=== PATIENT | male | born 1935 | race Hispanic/Latino ===

== ENCOUNTER 2017-03-31 15:45 | Observation (INO) | payer MEDICARE ==
[2017-03-31 15:45] VITALS: BMI 30.5
--- NOTE | 2017-03-31 16:28 | C.PDOC ---
History Of Present Illness Patient is a 82 y/o male sent to ED from PMD office for evaluation of fever, generalized weakness, nausea, mild headache, and dizziness for the last 3-4 days. States he does not feel well, and states his mouth feels dry. As per PMD' s note, patient has PMHx of diabetes mellitus, BPH, hypercholesterolemia, atrial flutter, chronic kidney disease, and is sent to the ED to rule out sepsis. Patient was found to have temperature of 100.7 in the office. Patient also reports chronic swelling to bilateral legs. PMD: Atif Price Time Seen by Provider: 03/31/17 15:54 Chief Complaint (Nursing): Weakness/Neurological Deficit History Per: Patient History/Exam Limitations: no limitations Onset/Duration Of Symptoms: Days (3-4), Gradual Current Symptoms Are (Timing): Still Present Reports Recently: Treated By A Physician Recent travel outside of the [place]: No Additional History Per: Patient Past Medical History Reviewed: Historical Data, Nursing Documentation, Vital Signs Vital Signs: Last Vital Signs Temp 98.4 F 03/31/17 15:48 Pulse 80 03/31/17 17:31 Resp 22 03/31/17 17:31 BP 163/79 H 03/31/17 17:31 Pulse Ox 97 03/31/17 17:54 - Medical History PMH: Benign Prostatic Hyperplasia, Cardia Arrhythmia (a flutter), Fractures ( right hip 1970), HTN, Hypercholesterolemia, Chronic Kidney Disease - [facility] Procedures ATRIAL CARDIOVERSION (12/26/13) DX ULTRASOUND-HEART (12/26/13) Family History: States: Unknown Family Hx - Social History Hx Alcohol Use: No Hx Substance Use: No - Immunization History Hx Tetanus Toxoid Vaccination: No Hx Influenza Vaccination: No Hx Pneumococcal Vaccination: No Review Of Systems Except As Marked, All Systems Reviewed And Found Negative. Constitutional: Positive for: Weakness. Negative for: Fever, Chills ENT: Positive for: Other (dry mouth) Cardiovascular: Negative for: Chest Pain, Palpitations Respiratory: Negative for: Cough, Shortness of Breath Gastrointestinal: Positive for: Nausea. Negative for: Vomiting, Abdominal Pain , Diarrhea Genitourinary: Negative for: Dysuria, Frequency, Hematuria Musculoskeletal: Negative for: Back Pain Neurological: Positive for: Headache (mild), Dizziness. Negative for: Weakness , Numbness Physical Exam - Physical Exam Appears: Non-toxic, No Acute Distress Skin: Normal Color, Warm, Dry Head: Atraumatic, Normacephalic Eye(s): bilateral: Normal Inspection, EOMI Oral Mucosa: Moist Neck: Normal ROM, Supple Chest: Symmetrical Cardiovascular: Rhythm Regular (gallop), No Murmur, Other Respiratory: Normal Breath Sounds, No Rales, No Rhonchi, No Wheezing Gastrointestinal/Abdominal: Bowel Sounds, Soft, No Tenderness, No Distention, No Guarding Extremity: Normal ROM, No Tenderness, Pedal Edema (right: 2+, Left: 1+), No Calf Tenderness, Capillary Refill (<2 sec.), No Deformity Pulses: Left Dorsalis Pedis: Normal, Right Dorsalis Pedis: Normal Neurological/Psych: Oriented x3, Normal Speech, Normal Cranial Nerves, Other ( neuro intact) Gait: Steady ED Course And Treatment - Laboratory Results Result Diagrams: 03/31/17 17:01 03/31/17 17:01 Lab Interpretation: Abnormal ECG: Interpreted By Me, Viewed By Me ECG Rhythm: Sinus Rhythm, R BBB ECG Interpretation: Abnormal Interpretation Of ECG: Sinus rhythm with 1st degree AV block. RBBB. Left anterior fascicular block. Rate From EC (bpm) O2 Sat by Pulse Oximetry: 97 (RA) Pulse Ox Interpretation: Normal Medical Decision Making Medical Decision Making: Impression: 82 y/o male sent to ED by PMD to rule out sepsis Plan: * EKG * CXR * Blood work * UA * Blood/urine culture * IV fluids * Reassess and disposition Progress: Labs reviewed: WBC>15, Glucose> 300, UA shows LE, WBC>900 ,clumps On re-evaluation, patient is resting comfortably, no acute distress. Case discussed with DR Hsieh who agrees patient can benefit from observation admission and treat with IV antibiotics. Hospitalist is covering Dr Yadav, spoke with Dr Haddad and discussed case. He asked to add troponin. He also states case will be for following shift Dr Cuba Disposition - Disposition Disposition: HOSPITALIZED Disposition Time: 18:05 Condition: FAIR - POA Present On Arrival: None - Clinical Impression Clinical Impression: UTI (urinary tract infection), bacterial - PA / FINANCIAL OPERATIONS CONSULTANT / Resident Statement MD/DO has reviewed & agrees with the documentation as recorded. - Scribe Statement The provider has reviewed the documentation as recorded by the Scribe Frank Garrisonel All medical record entries made by the Concepcion were at my direction and personally dictated by me. I have reviewed the chart and agree that the record accurately reflects my personal performance of the history, physical exam, medical decision making, and the department course for this patient. I have also personally directed, reviewed, and agree with the discharge instructions and disposition. Decision To Admit - Pt Status Changed To: Hospital Disposition Of: Observation - . Bed Request Type: Regular Admitting Physician: Brad Cuba Patient Diagnosis: UTI (urinary tract infection), bacterial
[2017-03-31] MEDS ORDERED: Sodium Chloride 0.9% 1,000 ML IV ONE (16:31)
[2017-03-31 17:18] LABS: BASO # 0.1 K/uL (0.0-0.2); BASO % 0.5 % (0.0-2.0); EOS % 0.3 % (0.0-4.0); HEMATOCRIT 43.9 % (35.0-51.0); LYMPH # 1.4 K/uL (1.0-4.3); LYMPH % 9.5 % (20.0-40.0); MEAN CELL VOLUME 92.7 fL (80.0-94.0); MEAN CORPUSCULAR HEMOGLOBIN 31.3 pg (27.0-31.0); MEAN CORPUSCULAR HGB CONC 33.7 g/dL (33.0-37.0); MONO # 1.3 K/uL (0.0-0.8); MONO % 8.4 % (0.0-10.0); NRBC % 0.1 % (0.0-2.0); PLATELET COUNT 114 K/uL (130-400); RED CELL DISTRIBUTION WIDTH 12.4 % (11.5-14.5)
[2017-03-31 17:19] LABS: CHLORIDE 96 mmol/L (98-107); SODIUM 132 mmol/L (132-148); WHITE BLOOD COUNT 15.1 K/uL (4.8-10.8)
[2017-03-31 17:20] LABS: POTASSIUM 3.8 mmol/L (3.6-5.2)
[2017-03-31 17:22] LABS: ALKALINE PHOSPHATASE 72 U/L (38-126); AST/SGOT 18 U/L (17-59); BILIRUBIN,TOTAL 1.5 mg/dL (0.2-1.3); BLOOD UREA NITROGEN 17 mg/dL (9-20); CARBON DIOXIDE 24 mmol/L (22-30); GFR AFRICAN-AMERICAN > 60; GLUCOSE,RANDOM 323 mg/dL (75-110); TOTAL PROTEIN 7.4 g/dL (6.3-8.3)
[2017-03-31 17:23] LABS: ALT/SGPT 29 U/L (21-72); CALCIUM 9.6 mg/dl (8.6-10.4); MAGNESIUM 1.4 mg/dL (1.6-2.3)
[2017-03-31 17:25] LABS: RBC URINE 92 /hpf (0-3); URINE BACTERIA MOD (<OCC); URINE BILIRUBIN NEGATIVE (NEGATIVE); URINE BLOOD 3+ (NEGATIVE); URINE COLOR Yellow (YELLOW); URINE GLUCOSE (UA) 3+ mg/dL (Normal); URINE KETONE TRACE mg/dL (NEGATIVE); URINE LEUKOCYTE ESTERASE 3+ Leu/uL (Negative); URINE PROTEIN 2+ mg/dL (NEGATIVE); URINE UROBILINOGEN NORMAL mg/dL (0.2-1.0); WBC CLUMPS MANY /hpf; WBC URINE 957 /hpf (0-5)
[2017-03-31 17:30] LABS: INR 1.2
[2017-03-31] MEDS ORDERED: cefTRIAXone IV 1 gm in Dextros 50 ML IVPB STA (17:32)
[2017-03-31] MEDS ORDERED: cefTRIAXone IV 1 gm in Dextros 50 ML IVPB ONE (17:49)
[2017-03-31 18:10] LABS: NEUTROPHIL 83 % (50-75); TOTAL CELLS COUNTED 100
--- NOTE | 2017-03-31 18:54 | RAD ---
HISTORY: malaise COMPARISON: No prior. TECHNIQUE: Chest PA and lateral FINDINGS: LUNGS: No active pulmonary disease. PLEURA: No significant pleural effusion identified. No pneumothorax apparent. CARDIOVASCULAR: Normal. OSSEOUS STRUCTURES: No significant abnormalities. VISUALIZED UPPER ABDOMEN: Normal. OTHER FINDINGS: None. IMPRESSION: No active disease.
--- NOTE | 2017-03-31 20:22 | CP.PCM.HP ---
<Josi Mendoza DO - Last Filed: 03/31/17 20:24> History of Present Illness - History of Present Illness History of Present Illness: CC: "I felt weak" Patient is an 82 year old male with PMHx DM, BPH, HLD, CKD who presents with complaint of generalized weakness for 3-4 days. Patient states he has just not felt himself and went to see his PMD Dr. Price today. Patient had a fever of 100.[address] Price's office and was sent to the ED for further evaluation. Patient states he has also been drinking less water for a week to 10 days. Patient states the decreased water intake was because every time he drank he had to urinate more frequently. Patient denies fevers, cills, chest pain, palpitations, shortness of breath, cough, dysuria, malodorous urine, hematuria, back pain, appetite changes. Patient does state he had nausea earlier in the day but it has since resolved. Patient denies falls or history of trauma. PMD: Albert PMHx: DM, BPH, HLD, CKD, atrial flutter s/p cardioversion- convert to sinus, chronic RLE edema, hairline hip fracture (no surgical intervention) Meds: flomax 0.4mg, metoprolol tartrate 50mg daily, metformin 500mg BID, lantus 20u daily, gabapentin 100mg TID, norvasc 5mg, simvastatin 20mg hs, ramipril 10mg daily PSHx: denies FamHx: denies Social Hx: former tobacco user- 5-10 cigarettes daily for 5-10y 50+ years ago, denies alcohol, uses marijuana nightly to help with sleep, lives alone, independent in all ADLs, no cane/ walker Present on Admission - Present on Admission Any Indicators Present on Admission: No Review of Systems - Constitutional Constitutional: Lethargy. absent: Chills, Fever, Weight Loss - EENT Eyes: absent: Blurred Vision Nose/Mouth/Throat: absent: Nasal Congestion - Cardiovascular Cardiovascular: absent: Chest Pain, Dyspnea, Irregular Heart Rhythm - Respiratory Respiratory: absent: Cough, Dyspnea - Gastrointestinal Gastrointestinal: Nausea. absent: Diarrhea, Loose Stools, Vomiting - Genitourinary Genitourinary: Urinary Frequency. absent: Difficulty Urinating, Dysuria - Musculoskeletal Musculoskeletal: absent: Back Pain - Integumentary Integumentary: absent: Rash - Neurological Neurological: Weakness. absent: Confusion, Dizziness, Focal Weakness Past Patient History - Infectious Disease Hx of Infectious Diseases: None - Past Medical History & Family History Past Medical History?: Yes - Past Social History Smoking Status: Never Smoked - CARDIAC Hx Cardia Arrhythmia: Yes (a flutter) Hx Hypercholesterolemia: Yes Hx Hypertension: Yes - HEENT Other/Comment: wears glasses - RENAL Hx Chronic Kidney Disease: Yes - ENDOCRINE/METABOLIC Hx Diabetes Mellitus Type 2: Yes - MUSCULOSKELETAL/RHEUMATOLOGICAL Hx Fractures: Yes (right hip 1970) - PSYCHIATRIC Hx Substance Use: No - SURGICAL HISTORY Hx Surgeries: Yes (cannot recall all surgeries) Other/Comment: cardiac ablation - ANESTHESIA Hx Anesthesia: Yes (cannot recall what procdure he had that involved anesthesia) Hx Anesthesia Reactions: No Hx Malignant Hyperthermia: No Meds Allergies/Adverse Reactions: Allergies Allergy/AdvReac Type Severity Reaction Status Date / Time No Known Allergies Allergy Verified 12/23/13 14:33 Physical Exam - Constitutional Appears: Non-toxic, No Acute Distress - Head Exam Head Exam: NORMOCEPHALIC Additional comments: abrasion to left side of face - Eye Exam Eye Exam: EOMI - ENT Exam ENT Exam: Mucous Membranes Dry - Respiratory Exam Respiratory Exam: Clear to Auscultation Bilateral, NORMAL BREATHING PATTERN. absent: Rales, Rhonchi, Wheezes - Cardiovascular Exam Cardiovascular Exam: +S1, +S2 - GI/Abdominal Exam GI & Abdominal Exam: Normal Bowel Sounds, Soft. absent: Distended, Tenderness - Extremities Exam Additional comments: 1+ pitting edema to right lower extremity abrasion to left shoulder - Back Exam Back exam: absent: CVA tenderness (L), CVA tenderness (R) - Neurological Exam Neurological exam: Alert, Oriented x3 - Psychiatric Exam Psychiatric exam: Normal Affect Results - Vital Signs Recent Vital Signs: Last Vital Signs Temp 98.4 F 03/31/17 15:48 Pulse 80 03/31/17 18:24 Resp 18 03/31/17 18:24 BP 166/78 H 03/31/17 18:24 Pulse Ox 97 03/31/17 18:25 - Labs Result Diagrams: 03/31/17 17:01 03/31/17 17:01 Labs: Laboratory Results - last 24 hr 03/31/17 18:15 Troponin I 0.0190 Assessment & Plan - Assessment and Plan (Free Text) Assessment: UTI UA with 957 WBC, 3+ leuk esterase, moderate bacteria f/u urine culture, f/u blood culture starting ceftriaxone q12h WBC 15.1, lactic acid 2.0 Diabetes continue home medications metformin 500mg BID, lantus 20u sc daily accuchecks achs with ISS will check Hgb A1c glucose on CMP 323, 3+ glucose in urine continue gabapentin 100mg TID for neuropathy CKD patient with creatinine 1.3, was 1.2 in 2013 (last result in EMR) will continue IVF NS @ 80cc/h pt with history poor water intake last week HTN continue home medications: metoprolol tartrate 50mg daily, norvasc 5mg daily, ramipril 10mg (patient to take own medication) HLD continue crestor 5mg (equivalent for home medication simvastatin 20mg HS) Prophylactic measure pepcid heparin sc no SCDs due to leg edema Plan of care D/W Dr. Cuba <Brad Cuba - Last Filed: 04/01/17 06:36> Results - Vital Signs Recent Vital Signs: Last Vital Signs Temp 98.5 F 04/01/17 00:30 Pulse 67 04/01/17 00:30 Resp 20 04/01/17 00:30 BP 153/77 H 04/01/17 00:30 Pulse Ox 95 04/01/17 00:30 - Labs Result Diagrams: 03/31/17 17:01 03/31/17 17:01 Labs: Laboratory Results - last 24 hr 03/31/17 03/31/17 18:15 21:23 POC Glucose (mg/dL) 264 H Troponin I 0.0190 Assessment & Plan - Date & Time Date: 04/01/17 (I have seen and examined the patient. I agree with the findings and plan of care as documented by Dr. Mendoza. Patient with UTI and weakness. Fall precautions. PT/OT. May be secondary to UTI. Rocephin for now. Check urine and blood cultures. Also with renal insufficiency. May be secondary to dehydration. Gentle hydration. Recheck renal function in AM. Also with history of diabetes. Check hemoglobin A1C. Continue home meds with NISS. Adjust home meds as necessary. Monitor for acute changes.) Time: 06:34 Attending/Attestation - Attestation I have personally seen and examined this patient.: Yes I have fully participated in the care of the patient.: Yes I have reviewed all pertinent clinical information: Yes
[2017-03-31] MEDS ORDERED: Magnesium Sulfate 1 gm in D5W 1 GM/100 ML BAG IVPB ONE (20:36)
[2017-03-31] MEDS: Sodium Chloride 0.9% 1,000 ML IV SCH (21:05)
[2017-03-31] MEDS: (Novolin R) Insulin Human Regular 100 units/ml vial SC SCH (21:24)
[2017-03-31] MEDS ORDERED: RAMIPRIL 10 MG PO SCH (21:45)
[2017-04-01 01:03] VITALS: RESP 20
--- NOTE | 2017-04-01 07:33 | CP.PCM.PN ---
Addendum entered and electronically signed by Medhat Martinez DO 04/01/17 10: 29: Patient seen and examined at bedside. Doing well with no complaints at this time. No urinary symptoms or back pain. Wants to go home. Denies Chest pain or SOB, F, Chills, N/V. Patient was sitting up watching TV in bed PE * normocephalic atraumatic * CTAB * RRR, no MRG * Soft, ND, NT, bowel sounds present in all 4 quadrants * Radial pulses 2+ b/, DP 2+ b/l, normal skin color, no edema Original Note: <Medhat Martinez - Last Filed: 04/01/17 07:36> Subjective - Date & Time of Evaluation Date of Evaluation: 04/01/17 Time of Evaluation: 07:29 - Subjective Subjective: PGY1 Note for Dr. Marshall HPI: Objective - Vital Signs/Intake and Output Vital Signs (last 24 hours): Temp Pulse Resp BP Pulse Ox 98.5 F 67 20 153/77 H 95 04/01/17 00:30 04/01/17 00:30 04/01/17 00:30 04/01/17 00:30 04/01/17 00:30 Intake and Output: 04/01/17 04/01/17 06:59 18:59 Intake Total 1100 Balance 1100 - Medications Medications: Current Medications Amlodipine Besylate (Norvasc) 5 mg PO DAILY [facility] Famotidine (Pepcid) 20 mg PO DAILY [facility] Last Admin: 03/31/17 21:26 Dose: 20 mg Gabapentin (Neurontin) 100 mg PO TID [facility] Heparin Sodium (Porcine) (Heparin) 5,000 units SC Q12 [facility] Last Admin: 03/31/17 21:19 Dose: 5,000 units Home Med (Home Med) 1 unit PO DAILY [facility] Ceftriaxone Sodium 1 gm/ (Sodium Chloride) 100 mls @ 100 mls/hr IVPB Q12H [facility] Last Admin: 04/01/17 05:21 Dose: 100 mls/hr Sodium Chloride (Sodium Chloride 0.9%) 1,000 mls @ 80 mls/hr IV .[id number] [facility] Last Admin: 03/31/17 21:05 Dose: 80 mls/hr Insulin Glargine (Lantus) 20 unit SC DAILY [facility] Insulin Human Regular (Novolin R) 0 unit SC [facility] PRN Reason: Protocol Last Admin: 03/31/17 21:24 Dose: Not Given Metformin HCl (Glucophage) 500 mg PO BID [facility] Metoprolol Tartrate (Lopressor) 50 mg PO DAILY [facility] Pneumococcal Polyvalent Vaccine (Pneumovax 23 Vaccine) 0.5 ml IM .ONCE ONE Stop: 04/02/17 10:01 Rosuvastatin Calcium (Crestor) 5 mg PO [facility] Last Admin: 03/31/17 21:19 Dose: 5 mg Tamsulosin HCl (Flomax) 0.4 mg PO DAILY [facility] - Labs Labs: PT 13.3 SECONDS (9.7-12.2) H 03/31/17 17:01 INR 1.2 03/31/17 17:01 APTT 29 SECONDS (21-34) 03/31/17 17:01 Assessment and Plan - Assessment and Plan (Free Text) Assessment: UTI * f/u urine culture * f/u blood culture * ceftriaxone q12h Diabetes * metformin 500mg BID * lantus 20u sc daily * accuchecks achs with ISS * Hgb A1c * gabapentin 100mg TID CKD * IVF NS @ 80 HTN * metoprolol tartrate 50mg daily * norvasc 5mg daily * ramipril 10mg (own med) HLD * crestor 5mg Prophylactic measure * pepcid * heparin sc <Sammy Marsahll H - Last Filed: 04/01/17 14:13> Objective - Vital Signs/Intake and Output Vital Signs (last 24 hours): Temp Pulse Resp BP Pulse Ox 97.2 F L 82 20 169/82 H 97 04/01/17 07:52 04/01/17 07:52 04/01/17 07:52 04/01/17 07:52 04/01/17 07:52 Intake and Output: 04/01/17 04/01/17 06:59 18:59 Intake Total 1100 Balance 1100 - Labs Labs: 04/01/17 07:31 04/01/17 07:31 PT 13.3 SECONDS (9.7-12.2) H 03/31/17 17:01 INR 1.2 03/31/17 17:01 APTT 29 SECONDS (21-34) 03/31/17 17:01 Attending/Attestation - Attestation I have personally seen and examined this patient.: Yes I have fully participated in the care of the patient.: Yes I have reviewed all pertinent clinical information, including history, physical exam and plan: Yes Notes (Text): 04/01/17 14:12 Medical attending: Patient was seen and examined by me, agree with the above note by medical assembly. The patient stated that he was feeling very well, he did not have any new concerns, reported eating well, back from was okay, denied chest pain or shortness of breath The patient explained to me that he did not want to stay, I discussed with him some the potential risks particularly since he is getting IV antibiotics for what appeared to be UTI. The patient states he understands but that he feels very well. He doesn't have any concerns at this time he would like to go AMA Thank you very much, Sammy Marshall
[2017-04-01 07:40] LABS: BASO # 0.1 K/uL (0.0-0.2); BASO % 1.2 % (0.0-2.0); EOS # 0.2 K/uL (0.0-0.7); EOS % 1.6 % (0.0-4.0); LYMPH % 16.5 % (20.0-40.0); MEAN CORPUSCULAR HEMOGLOBIN 31.6 pg (27.0-31.0); MEAN PLATELET VOLUME 11.2 fL (7.2-11.7); MONO # 1.1 K/uL (0.0-0.8); MONO % 8.9 % (0.0-10.0); RED CELL DISTRIBUTION WIDTH 12.6 % (11.5-14.5); WHITE BLOOD COUNT 12.4 K/uL (4.8-10.8)
[2017-04-01 07:53] LABS: CHLORIDE 101 mmol/L (98-107); POTASSIUM 3.9 mmol/L (3.6-5.2); SODIUM 135 mmol/L (132-148)
[2017-04-01 07:55] VITALS: BP 169/82; PULSE 82; TEMP 97.2; O2SAT 97
[2017-04-01 07:55] LABS: BILIRUBIN,TOTAL 1.2 mg/dL (0.2-1.3); GFR AFRICAN-AMERICAN > 60
[2017-04-01 07:56] LABS: ALB/GLOB RATIO 0.9 (1.0-2.1); ALKALINE PHOSPHATASE 61 U/L (38-126); ALT/SGPT 25 U/L (21-72); AST/SGOT 16 U/L (17-59); BLOOD UREA NITROGEN 14 mg/dL (9-20); CARBON DIOXIDE 24 mmol/L (22-30); GLUCOSE,RANDOM 246 mg/dL (75-110); TOTAL PROTEIN 6.7 g/dL (6.3-8.3)
[2017-04-01 07:57] LABS: CALCIUM 9.1 mg/dl (8.6-10.4)
[2017-04-01] MEDS: (Novolin R) Insulin Human Regular 100 units/ml vial SC SCH ×2 (08:44→12:52)
[2017-04-01] MEDS: Sodium Chloride 0.9% 1,000 ML IV SCH (09:37)
[2017-04-01] MEDS ORDERED: RAMIPRIL 10 MG PO SCH (10:00)
[2017-04-01] MEDS ORDERED: (Lantus) Insulin Glargine, Recombinant SC SCH (10:00)
--- NOTE | 2017-04-01 11:07 | CP.PCM.DIS ---
Provider - Provider Date of Admission: 03/31/17 18:07 Attending physician: Brad Cuba MD Hospital Course - Lab Results Lab Results: Most Recent Lab Values WBC 12.4 K/uL (4.8-10.8) H 04/01/17 07:31 RBC 4.19 Mil/uL (4.40-5.90) L 04/01/17 07:31 Hgb 13.3 g/dL (12.0-18.0) 04/01/17 07: Hct 39.0 % (35.0-51.0) 04/01/17 07:31 MCV 93.0 fL (80.0-94.0) 04/01/17 07: MCH 31.6 pg (27.0-31.0) H 04/01/17 07:31 MCHC 34.0 g/dL (33.0-37.0) 04/01/17 07:31 RDW 12.6 % (11.5-14.5) 04/01/17 07:31 Plt Count 105 K/uL (130-400) L 04/01/17 07:31 MPV 11.2 fL (7.2-11.7) 04/01/17 07:31 Neut % (Auto) 71.8 % (50.0-75.0) 04/01/17 07: Lymph % (Auto) 16.5 % (20.0-40.0) L 04/01/17 07:31 [place] % (Auto) 8.9 % (0.0-10.0) 04/01/17 07:31 Eos % (Auto) 1.6 % (0.0-4.0) 04/01/17 07:31 Baso % (Auto) 1.2 % (0.0-2.0) 04/01/17 07:31 Neut # 8.9 K/uL (1.8-7.0) H 04/01/17 07:31 Lymph # 2.0 K/uL (1.0-4.3) 04/01/17 07:31 [place] # 1.1 K/uL (0.0-0.8) H 04/01/17 07:31 Eos # 0.2 K/uL (0.0-0.7) 04/01/17 07:31 Baso # 0.1 K/uL (0.0-0.2) 04/01/17 07:31 Neutrophils % (Manual) 83 % (50-75) H 03/31/17 17:01 Band Neutrophils % 1 % (0-2) 03/31/17 17:01 Lymphocytes % (Manual) 9 % (20-40) L 03/31/17 17:01 Monocytes % (Manual) 7 % (0-10) 03/31/17 17:01 Platelet Estimate Slightly decreased (NORMAL) L 03/31/17 17:01 RBC Morphology Normal 03/31/17 17: PT 13.3 SECONDS (9.7-12.2) H 03/31/17 17:01 INR 1.2 03/31/17 17:01 APTT 29 SECONDS (21-34) 03/31/17 17:01 Sodium 135 mmol/L (132-148) 04/01/17 07:31 Potassium 3.9 mmol/L (3.6-5.2) 04/01/17 07:31 Chloride 101 mmol/L (98-107) 04/01/17 07:31 Carbon Dioxide 24 mmol/L (22-30) 04/01/17 07:31 Anion Gap 14 (10-20) 04/01/17 07:31 BUN 14 mg/dL (9-20) 04/01/17 07:31 Creatinine 1.1 MG/DL (0.8-1.5) 04/01/17 07:31 Est GFR ( Amer) > 60 04/01/17 07:31 Est GFR (Non-Af Amer) > 60 04/01/17 07:31 POC Glucose (mg/dL) 258 mg/dL (65-110) H 04/01/17 07:19 Random Glucose 246 mg/dL (75-110) H 04/01/17 07:31 Hemoglobin A1c 10.1 % (4.2-6.5) H 04/01/17 07:31 Lactic Acid 2.0 mmol/L (0.7-2.1) 03/31/17 17:01 Calcium 9.1 mg/dl (8.6-10.4) 04/01/17 07:31 Phosphorus 3.0 mg/dL (2.5-4.5) 03/31/17 17:01 Magnesium 1.4 mg/dL (1.6-2.3) L 03/31/17 17:01 Total Bilirubin 1.2 mg/dL (0.2-1.3) 04/01/17 07:31 AST 16 U/L (17-59) L 04/01/17 07:31 ALT 25 U/L (21-72) 04/01/17 07:31 Alkaline Phosphatase 61 U/L (38-126) 04/01/17 07:31 Troponin I 0.0190 ng/mL (0.00-0.120) 03/31/17 18:15 NT-Pro-B Natriuret Pep 1150 pg/mL (0-900) H 03/31/17 17:01 Total Protein 6.7 g/dL (6.3-8.3) 04/01/17 07:31 Albumin 3.2 g/dL (3.5-5.0) L 04/01/17 07:31 Globulin 3.5 gm/dL (2.2-3.9) 04/01/17 07:31 Albumin/Globulin Ratio 0.9 (1.0-2.1) L 04/01/17 07:31 Urine Color Yellow (YELLOW) 03/31/17 17:01 Urine Clarity Hazy (Clear) 03/31/17 17:01 Urine pH 5.0 (5.0-8.0) 03/31/17 17:01 Ur Specific [place] 1.020 (1.003-1.030) 03/31/17 17:01 Urine Protein 2+ mg/dL (NEGATIVE) H 03/31/17 17:01 Urine Glucose (UA) 3+ mg/dL (Normal) H 03/31/17 17:01 Urine Ketones Trace mg/dL (NEGATIVE) 03/31/17 17:01 Urine Blood 3+ (NEGATIVE) H 03/31/17 17:01 Urine Nitrate Negative (NEGATIVE) 03/31/17 17: Urine Bilirubin Negative (NEGATIVE) 03/31/17 17:01 Urine Urobilinogen Normal mg/dL (0.2-1.0) 03/31/17 17:01 Ur Leukocyte Esterase 3+ [place]/uL (Negative) H 03/31/17 17:01 Urine WBC (Auto) 957 /hpf (0-5) H 03/31/17 17:01 Urine RBC (Auto) 92 /hpf (0-3) H 03/31/17 17:01 Urine WBC Clumps (Auto) Many /hpf (NONE) H 03/31/17 17:01 Urine Bacteria Mod (<OCC) H 03/31/17 17:01 Discharge Exam - Head Exam Head Exam: NORMOCEPHALIC Discharge Plan - Follow Up Plan Condition: FAIR Disposition: AGAINST MEDICAL ADVICE Additional Instructions: Patient is requesting to leave AMA. We will prescribe Ciprofloxacin 500mg BID for 7 days If symptoms return please come back to the ER Please follow up with your primary care doctor, Dr. Price, within one week. Please call to make an appointment Prescription instruction will be provided at discharge. Thank you for letting us take care of you
--- NOTE | 2017-04-01 11:57 | CARD ---
APPROVED REPORT EKG Measurement Heart [id number] <Conclusion> Sinus rhythm with 1st degree AV block Right bundle branch block Left anterior fascicular block Bifascicular block Left ventricular hypertrophy with repolarization abnormality Cannot rule out Septal infarct, age undetermined Abnormal ECG
[2017-04-02] MEDS ORDERED: Pneumococcal 23-Valent Vaccine IM ONE (10:00)
--- NOTE | 2017-04-16 18:44 | CARD ---
APPROVED REPORT EKG Measurement Heart [id number] <Conclusion> Sinus rhythm with sinus arrhythmia with 1st degree AV block Right bundle branch block Left anterior fascicular block Bifascicular block Minimal voltage criteria for LVH, may be normal variant Abnormal ECG
== END 2017-04-01 12:52 | disposition home or self-care (01) ==
LOC: C.ER 15:45 → C.9E 18:07 → C.3T 18:38
PROVIDERS: ADMIT Family Medicine; ATTEND Family Medicine
DX: N39.0 Urinary tract infection, site not specified (principal); I12.9 Hypertensive chronic kidney disease with stage 1 through stage 4 chronic kidney disease, or unspecified chronic kidney disease; N18.9 Chronic kidney disease, unspecified; E78.5 Hyperlipidemia, unspecified; E11.22 Type 2 diabetes mellitus with diabetic chronic kidney disease; N40.0 Benign prostatic hyperplasia without lower urinary tract symptoms; Z87.891 Personal history of nicotine dependence
CPT/HCPCS: 36415; 71020; 80053; 81001; 82948; 83036; 83605; 83735; 83880; 84100; 84484; 85025; 85610; 85730; 87040; 87086; 93005; 96360; 99285; G0378; J0696; J1644; J3475; J7040

== ENCOUNTER 2018-02-09 07:11 | Observation (INO) | payer MEDICARE ==
[2018-02-09 07:11] VITALS: BMI 30.5
[2018-02-09 08:33] LABS: BASO # 0.1 K/uL (0.0-0.2); BASO % 0.7 % (0.0-2.0); EOS # 0.3 K/uL (0.0-0.7); EOS % 3.3 % (0.0-4.0); LYMPH % 23.6 % (20.0-40.0); MEAN CELL VOLUME 94.7 fL (80.0-94.0); MEAN CORPUSCULAR HEMOGLOBIN 32.4 pg (27.0-31.0); MEAN CORPUSCULAR HGB CONC 34.2 g/dL (33.0-37.0); MEAN PLATELET VOLUME 11.3 fL (7.2-11.7); MONO # 0.6 K/uL (0.0-0.8); MONO % 6.9 % (0.0-10.0); NEUT # 5.6 K/uL (1.8-7.0); NEUT % 65.5 % (50.0-75.0); RBC 4.33 Mil/uL (4.40-5.90); RED CELL DISTRIBUTION WIDTH 12.4 % (11.5-14.5); WHITE BLOOD COUNT 8.5 K/uL (4.8-10.8)
[2018-02-09 08:34] LABS: INR 1.1
[2018-02-09 08:48] LABS: ALB/GLOB RATIO 1.1 (1.0-2.1); ALBUMIN 3.7 g/dL (3.5-5.0); ALT/SGPT 30 U/L (21-72); AST/SGOT 26 U/L (17-59); BLOOD UREA NITROGEN 23 mg/dL (9-20); CALCIUM 9.3 mg/dl (8.6-10.4); GFR AFRICAN-AMERICAN 59; GFR NON-AFRICAN AMERICAN 49
[2018-02-09 08:58] LABS: B-TYPE NATRIURETIC PEPTIDE 1140 pg/mL (0-900); CK-MB 1.05 ng/mL (0.0-3.38)
--- NOTE | 2018-02-09 09:35 | RAD ---
Chest x-ray single frontal view History: Shortness of breath. Comparison: 03/31/2017 Findings: Mild to moderate venous congestion. Patchy bibasilar airspace opacities with question small bilateral pleural effusions. Nodular density at the right lung base. Enlarged ectatic aorta. Cardiomegaly. Right peritracheal airspace prominence may represent prominent vascularity. Impression: Mild to moderate venous congestion. Patchy bibasilar airspace opacities with question small bilateral pleural effusions. Nodular density at the right lung base. Enlarged ectatic aorta. Cardiomegaly. Right peritracheal airspace prominence may represent prominent vascularity.
--- NOTE | 2018-02-09 10:21 | C.PDOC ---
History Of Present Illness 82 year old male presents to the ER with complaint of generalized weakness and mild SOB with exertion for the past several days. Patient has a Hx of atrial flutter and has been cardioverted x2 as per PMD. He denies chest pain, palpitations, abdominal pain, nausea, vomiting, cough, fever, syncope. Time Seen by Provider: 02/09/18 07:30 Chief Complaint (Nursing): Chest Pain History Per: Patient History/Exam Limitations: no limitations Onset/Duration Of Symptoms: Days Current Symptoms Are (Timing): Still Present Severity: Mild Associated Symptoms: Dyspnea (with exertion), Other (Generalized weakness) Modifying Factors: None Exacerbating Factors: Exertion Alleviating Factors: None Recent travel outside of the [place]: No Past Medical History Reviewed: Historical Data, Nursing Documentation, Vital Signs Vital Signs: Last Vital Signs Temp 98.2 F 02/10/18 07:00 Pulse 61 02/10/18 07:00 Resp 20 02/10/18 07:00 BP 165/82 H 02/10/18 07:00 Pulse Ox 97 02/10/18 07:00 - Medical History PMH: Benign Prostatic Hyperplasia, Cardia Arrhythmia (a flutter), Fractures ( right hip 1970), HTN, Hypercholesterolemia, Chronic Kidney Disease - [facility] Procedures ATRIAL CARDIOVERSION (12/26/13) DX ULTRASOUND-HEART (12/26/13) Family History: States: No Known Family Hx - Social History Hx Alcohol Use: No Hx Substance Use: No - Immunization History Hx Tetanus Toxoid Vaccination: No Hx Influenza Vaccination: No Hx Pneumococcal Vaccination: No Review Of Systems Constitutional: Positive for: Weakness. Negative for: Fever, Chills Cardiovascular: Negative for: Chest Pain, Palpitations Respiratory: Positive for: SOB with Excertion (Mild). Negative for: Cough Gastrointestinal: Negative for: Nausea, Vomiting, Abdominal Pain Skin: Negative for: Rash Physical Exam - Physical Exam Appears: Well, Non-toxic, No Acute Distress, Other (speaking in full sentences) Skin: Normal Color, Warm, Dry, No Rash Eye(s): bilateral: Normal Inspection Oral Mucosa: Moist Neck: Supple Cardiovascular: Rhythm Regular, Murmur (3/6 holosystolic) Respiratory: Normal Breath Sounds, No Rales, No Rhonchi, No Wheezing Gastrointestinal/Abdominal: Normal Exam, Bowel Sounds, Soft, No Tenderness Extremity: Pedal Edema (trace pitting edema B/L LEs R>L) Neurological/Psych: Oriented x3, Normal Speech, Normal Cognition ED Course And Treatment - Laboratory Results Result Diagrams: 02/10/18 06:51 02/10/18 06:51 ECG: Interpreted By Me, Viewed By Me (atrial flutter 62 bpm, PVCs, left axis deivation, no acute ST/T wave changes) ECG Interpretation: Abnormal O2 Sat by Pulse Oximetry: 99 (Room air) Pulse Ox Interpretation: Normal - Radiology CXR: Interpreted by Me, Viewed By Me (mild pulm vascular congestion. no infiltrate) Progress Note: Blood work, EKG, CXR ordered and reviewed. Patient given PO ASA , IV Lasix. Patient not on current blood thinner, states was taken off of it due to bleeding compliications. - Physician Consult Information Physician Contacted: Atif Price Outcome Of Conversation: Dicussed patient with his PMD, would like him admitted to Dr. Yadav's service for atrial flutter, CHF, gen weakness. Inpatient Care Manager Rn is Dr. Clement, who is currently away on vacation. Dr. Yadav aware and requests Dr. Brambila for cardiology. Disposition - Disposition Disposition: HOSPITALIZED Disposition Time: 11:22 Condition: STABLE - Clinical Impression Clinical Impression: Atrial flutter, General weakness, Congestive heart failure - Scribe Statement The provider has reviewed the documentation as recorded by the Scribe Kai Hidalgo Decision To Admit - Pt Status Changed To: Hospital Disposition Of: Observation - . Bed Request Type: Telemetry Admitting Physician: Rodney Yadav Patient Diagnosis: Atrial flutter, Congestive heart failure, General weakness
[2018-02-09 16:19] VITALS: RESP 20
[2018-02-09] MEDS ORDERED: Benzocaine/Menthol (Cepacol) Lozenge MT PRN (19:15)
--- NOTE | 2018-02-09 20:23 | CP.PCM.CON ---
History of Present Illness - History of Present Illness History of Present Illness: Reason For Consultation: Patient is an 82 year old male with PMHx DM, BPH, HLD, CKD who presents with complaint of generalized weakness. admitted for A Flutter (Recurrent) PMD: Price/Vicenta PMHx: DM, BPH, HLD, CKD, atrial flutter s/p cardioversion- convert to sinus, chronic RLE edema, hairline hip fracture (no surgical intervention) Meds: flomax 0.4mg, metoprolol tartrate 50mg daily, metformin 500mg BID, lantus 20u daily, gabapentin 100mg TID, norvasc 5mg, simvastatin 20mg hs, ramipril 10mg daily PSHx: denies FamHx: denies Social Hx: former tobacco user- 5-10 cigarettes daily for 5-10y 50+ years ago, denies alcohol, uses marijuana nightly to help with sleep, lives alone, independent in all ADLs, no cane/ walker Present on Admission - Present on Admission Any Indicators Present on Admission: No Review of Systems - Constitutional Constitutional: Lethargy. absent: Chills, Fever, Weight Loss - EENT Eyes: absent: Blurred Vision Nose/Mouth/Throat: absent: Nasal Congestion - Cardiovascular Cardiovascular: absent: Chest Pain, Dyspnea, Irregular Heart Rhythm - Respiratory Respiratory: absent: Cough, Dyspnea - Gastrointestinal Gastrointestinal: Nausea. absent: Diarrhea, Loose Stools, Vomiting - Genitourinary Genitourinary: Urinary Frequency. absent: Difficulty Urinating, Dysuria - Musculoskeletal Musculoskeletal: absent: Back Pain - Integumentary Integumentary: absent: Rash - Neurological Neurological: Weakness. absent: Confusion, Dizziness, Focal Weakness Physical Exam - Constitutional Appears: Non-toxic, No Acute Distress - Head Exam Head Exam: NORMOCEPHALIC Additional comments: abrasion to left side of face - Eye Exam Eye Exam: EOMI - ENT Exam ENT Exam: Mucous Membranes Dry - Respiratory Exam Respiratory Exam: Clear to Auscultation Bilateral, NORMAL BREATHING PATTERN. absent: Rales, Rhonchi, Wheezes - Cardiovascular Exam Cardiovascular Exam: +S1, +S2 - GI/Abdominal Exam GI & Abdominal Exam: Normal Bowel Sounds, Soft. absent: Distended, Tenderness - Extremities Exam Additional comments: 1+ pitting edema to right lower extremity abrasion to left shoulder - Back Exam Back exam: absent: CVA tenderness (L), CVA tenderness (R) - Neurological Exam Neurological exam: Alert, Oriented x3 - Psychiatric Exam Psychiatric exam: Normal Affect Past Patient History - Infectious Disease Hx of Infectious Diseases: None - Past Medical History & Family History Past Medical History?: Yes - Past Social History Smoking Status: Former Smoker - CARDIAC Hx Cardia Arrhythmia: Yes (a flutter) Hx Hypercholesterolemia: Yes Hx Hypertension: Yes - PULMONARY Hx Respiratory Disorders: No - NEUROLOGICAL Hx Neurological Disorder: No - HEENT Other/Comment: wears glasses - RENAL Hx Chronic Kidney Disease: Yes - ENDOCRINE/METABOLIC Hx Diabetes Mellitus Type 2: Yes - INTEGUMENTARY Hx Dermatological Problems: No - MUSCULOSKELETAL/RHEUMATOLOGICAL Hx Fractures: Yes (right hip 1970) - GASTROINTESTINAL Hx Gastrointestinal Disorders: No - GENITOURINARY/GYNECOLOGICAL Hx Prostate Problems: Yes (BPH) - PSYCHIATRIC Hx Substance Use: No - SURGICAL HISTORY Hx Surgeries: Yes (cannot recall all surgeries) Other/Comment: cardiac ablation - ANESTHESIA Hx Anesthesia: Yes (cannot recall what procdure he had that involved anesthesia) Hx Anesthesia Reactions: No Hx Malignant Hyperthermia: No Has any member of the family had a problem w/ anesthesia?: No Meds Allergies/Adverse Reactions: Allergies Allergy/AdvReac Type Severity Reaction Status Date / Time No Known Allergies Allergy Verified 02/09/18 07:26 - Medications Medications: Current Medications Aspirin (Ecotrin) 81 mg PO DAILY [facility] Benzocaine/Menthol (Cepacol Sore Throat) 1 gibson MT Q12 PRN PRN Reason: Sore Throat Enoxaparin Sodium (Lovenox) 80 mg SC Q12 [facility] Losartan Potassium (Cozaar) 25 mg PO DAILY [facility] Metoprolol Succinate (Toprol Xl) 50 mg PO DAILY [facility] Rosuvastatin Calcium (Crestor) 5 mg PO DAILY [facility] Results - Vital Signs Recent Vital Signs: Last Vital Signs Temp 98.6 F 02/09/18 15:13 Pulse 64 02/09/18 15:13 Resp 20 02/09/18 15:13 BP 145/75 02/09/18 15:13 Pulse Ox 96 02/09/18 15:13 - Labs Result Diagrams: 02/09/18 08:20 02/09/18 08:20 Labs: Laboratory Results - last 24 hr 02/09/18 02/09/18 02/09/18 08:20 08:20 08:20 WBC 8.5 RBC 4.33 L Hgb 14.0 Hct 41.0 MCV 94.7 H MCH 32.4 H MCHC 34.2 RDW 12.4 Plt Count 131 MPV 11.3 Neut % (Auto) 65.5 Lymph % (Auto) 23.6 [place] % (Auto) 6.9 Eos % (Auto) 3.3 Baso % (Auto) 0.7 Neut # (Auto) 5.6 Lymph # (Auto) 2.0 [place] # (Auto) 0.6 Eos # (Auto) 0.3 Baso # (Auto) 0.1 PT 12.0 INR 1.1 APTT 30 Sodium 139 Potassium 4.5 Chloride 105 Carbon Dioxide 22 Anion Gap 16 BUN 23 H Creatinine 1.4 Est GFR ( Amer) 59 Est GFR (Non-Af Amer) 49 POC Glucose (mg/dL) Random Glucose 189 H Calcium 9.3 Total Bilirubin 0.9 AST 26 ALT 30 Alkaline Phosphatase 67 Total Creatine Kinase 55 CK-MB (Mass) 1.05 Troponin I < 0.0120 NT-Pro-B Natriuret Pep 1140 H Total Protein 6.9 Albumin 3.7 Globulin 3.2 Albumin/Globulin Ratio 1.1 02/09/18 16:47 WBC RBC Hgb Hct MCV MCH MCHC RDW Plt Count MPV Neut % (Auto) Lymph % (Auto) [place] % (Auto) Eos % (Auto) Baso % (Auto) Neut # (Auto) Lymph # (Auto) [place] # (Auto) Eos # (Auto) Baso # (Auto) PT INR APTT Sodium Potassium Chloride Carbon Dioxide Anion Gap BUN Creatinine Est GFR ( Amer) Est GFR (Non-Af Amer) POC Glucose (mg/dL) 207 H Random Glucose Calcium Total Bilirubin AST ALT Alkaline Phosphatase Total Creatine Kinase CK-MB (Mass) Troponin I NT-Pro-B Natriuret Pep Total Protein Albumin Globulin Albumin/Globulin Ratio Assessment & Plan - Assessment and Plan (Free Text) Assessment: A Flutter Recurrent A Flutter rate controlled CARRIE/ cardioversion Vs. EPS ablation Needs anticoagulation Diabetes continue home medications metformin 500mg BID, lantus 20u sc daily accuchecks achs with ISS will check Hgb A1c glucose on CMP 323, 3+ glucose in urine continue gabapentin 100mg TID for neuropathy CKD HTN continue home medications: metoprolol tartrate 50mg daily, norvasc 5mg daily, ramipril 10mg (patient to take own medication) HLD continue crestor 5mg (equivalent for home medication simvastatin 20mg HS) Prophylactic measure pepcid heparin sc no SCDs due to leg edema
[2018-02-09 20:35] LABS: CK-MB 0.81 ng/mL (0.0-3.38)
--- NOTE | 2018-02-09 21:15 | CP.PCM.HP ---
History of Present Illness - History of Present Illness History of Present Illness: Chief complaint feeling weak HPI: 82-year-old male with history of diabetes, BPH, hypercholesterolemia, renal insufficiency, history of irregular heartbeat in the past, had cardioversions in the past came to the emergency room after he was seen by PMD today. Recently he returned from [place], where he was there he was started having some sickness. He was not feeling well, shortness of breath noted, chest tightness noted, headache, dizziness, and feeling tired and weak. While he seen in the office patient had rapid heartbeat, and weakness. He was sent to the emergency room because of that. In the emergency room patient was evaluated, he was feeling slightly better, but continued to have a rapid heartbeat, got better after medications. Patient needed further management. Now he is having no chest pain. He has no sweating. Slightly feeling better. Past medical history: Diabetes, takes insulin, BPH, high cholesterol, hyperlipidemia, hypertension, atrial fibrillation, status post cardioversion in the past also leg edema in the past Current medications reviewed Surgical history none Family history mother at the age of 90, father also in their old age. Siblings no medical history noted Patient has 3 daughters, and many great grandsons grand daughters Social history: He smoked almost a 5-10 cigarettes per day for 5 years more than 50 years ago. No alcohol. Occasionally uses marijuana. Patient lives alone Review of system: Patient is having dizziness, headache, palpitation, weakness, sweating, shortness of breath on exertion. Unable to walk less than 1 - 2 blocks. No diarrhea no nausea no fever noted No cough. Minimal sore throat noted but minimal cough with mucus noted now On examination: Vital signs stable. Chest bilateral good air entry. No rales wheezing noted, irregular heart sound, nontender abdomen, no pedal edema, TUBING OILER alert awake oriented 3 no functional neurological deficit Labs: EKG showing evidence of atrial flutter with controlled ventricular rate. Elevated proBNP noted, cardiac enzymes negative. CBC is normal. Urinalysis currently pending. X-ray chest showing evidence of no acute pathology Assessment and recommendation: 82-year-old male admitted to the hospital with multiple medical history including diabetes, BPH, hypercholesterolemia, hypertension, history of atrial flutter, status post cardioversions in the past admitted now with a possible acute rapid ventricular rate with the atrial flutter and fibrillation. Weakness associated with rapid ventricular rate. Underlying possible CHF secondary to atrial flutter. Patient also has a possible upper respiratory infection, but stable. Cardiology evaluation. Continue to monitor. Telemetry monitoring. DVT GI prophylaxis. Anticoagulation. We will get a thyroid profile. Patient may need cardioversion. Patient also may need ablation, discussed with the patient, currently he is reluctant. Echocardiogram ordered will follow the patient Present on Admission - Present on Admission Any Indicators Present on Admission: No History of DVT/PE: No History of Uncontrolled Diabetes: No Urinary Catheter: No Decubitus Ulcer Present: No Past Patient History - Infectious Disease Hx of Infectious Diseases: None - Past Medical History & Family History Past Medical History?: Yes - Past Social History Smoking Status: Former Smoker - CARDIAC Hx Cardia Arrhythmia: Yes (a flutter) Hx Hypercholesterolemia: Yes Hx Hypertension: Yes - PULMONARY Hx Respiratory Disorders: No - NEUROLOGICAL Hx Neurological Disorder: No - HEENT Other/Comment: wears glasses - RENAL Hx Chronic Kidney Disease: Yes - ENDOCRINE/METABOLIC Hx Diabetes Mellitus Type 2: Yes - INTEGUMENTARY Hx Dermatological Problems: No - MUSCULOSKELETAL/RHEUMATOLOGICAL Hx Fractures: Yes (right hip 1970) - GASTROINTESTINAL Hx Gastrointestinal Disorders: No - GENITOURINARY/GYNECOLOGICAL Hx Prostate Problems: Yes (BPH) - PSYCHIATRIC Hx Substance Use: No - SURGICAL HISTORY Hx Surgeries: Yes (cannot recall all surgeries) Other/Comment: cardiac ablation - ANESTHESIA Hx Anesthesia: Yes (cannot recall what procdure he had that involved anesthesia) Hx Anesthesia Reactions: No Hx Malignant Hyperthermia: No Has any member of the family had a problem w/ anesthesia?: No Meds Allergies/Adverse Reactions: Allergies Allergy/AdvReac Type Severity Reaction Status Date / Time No Known Allergies Allergy Verified 02/09/18 07:26 Results - Vital Signs Recent Vital Signs: Last Vital Signs Temp 98.6 F 02/09/18 15:13 Pulse 64 02/09/18 15:13 Resp 20 02/09/18 15:13 BP 145/75 02/09/18 15:13 Pulse Ox 96 02/09/18 15:13 - Labs Result Diagrams: 02/09/18 08:20 02/09/18 08:20 Labs: Laboratory Results - last 24 hr 02/09/18 02/09/18 02/09/18 08:20 08:20 08:20 WBC 8.5 RBC 4.33 L Hgb 14.0 Hct 41.0 MCV 94.7 H MCH 32.4 H MCHC 34.2 RDW 12.4 Plt Count 131 MPV 11.3 Neut % (Auto) 65.5 Lymph % (Auto) 23.6 [place] % (Auto) 6.9 Eos % (Auto) 3.3 Baso % (Auto) 0.7 Neut # (Auto) 5.6 Lymph # (Auto) 2.0 [place] # (Auto) 0.6 Eos # (Auto) 0.3 Baso # (Auto) 0.1 PT 12.0 INR 1.1 APTT 30 Sodium 139 Potassium 4.5 Chloride 105 Carbon Dioxide 22 Anion Gap 16 BUN 23 H Creatinine 1.4 Est GFR ( Amer) 59 Est GFR (Non-Af Amer) 49 POC Glucose (mg/dL) Random Glucose 189 H Calcium 9.3 Total Bilirubin 0.9 AST 26 ALT 30 Alkaline Phosphatase 67 Total Creatine Kinase 55 CK-MB (Mass) 1.05 Troponin I < 0.0120 NT-Pro-B Natriuret Pep 1140 H Total Protein 6.9 Albumin 3.7 Globulin 3.2 Albumin/Globulin Ratio 1.1 02/09/18 02/09/18 16:47 20:04 WBC RBC Hgb Hct MCV MCH MCHC RDW Plt Count MPV Neut % (Auto) Lymph % (Auto) [place] % (Auto) Eos % (Auto) Baso % (Auto) Neut # (Auto) Lymph # (Auto) [place] # (Auto) Eos # (Auto) Baso # (Auto) PT INR APTT Sodium Potassium Chloride Carbon Dioxide Anion Gap BUN Creatinine Est GFR ( Amer) Est GFR (Non-Af Amer) POC Glucose (mg/dL) 207 H Random Glucose Calcium Total Bilirubin AST ALT Alkaline Phosphatase Total Creatine Kinase 49 L CK-MB (Mass) 0.81 Troponin I < 0.0120 NT-Pro-B Natriuret Pep Total Protein Albumin Globulin Albumin/Globulin Ratio
[2018-02-09] MEDS: (Novolin R) Insulin Human Regular 100 units/ml vial SC SCH (21:48)
[2018-02-09] MEDS: Enoxaparin 80 mg Syringe SC SCH (21:48)
[2018-02-10 06:59] LABS: BASO % 0.7 % (0.0-2.0); EOS # 0.3 K/uL (0.0-0.7); EOS % 3.7 % (0.0-4.0); HEMOGLOBIN 14.8 g/dL (12.0-18.0); LYMPH # 2.4 K/uL (1.0-4.3); MEAN CELL VOLUME 94.7 fL (80.0-94.0); MEAN CORPUSCULAR HEMOGLOBIN 32.3 pg (27.0-31.0); MEAN CORPUSCULAR HGB CONC 34.1 g/dL (33.0-37.0); MEAN PLATELET VOLUME 11.4 fL (7.2-11.7); MONO # 0.4 K/uL (0.0-0.8); MONO % 6.2 % (0.0-10.0); NEUT # 3.9 K/uL (1.8-7.0); NEUT % 55.4 % (50.0-75.0); NRBC % 0.1 % (0.0-2.0); RBC 4.57 Mil/uL (4.40-5.90); RED CELL DISTRIBUTION WIDTH 12.6 % (11.5-14.5); WHITE BLOOD COUNT 7.1 K/uL (4.8-10.8)
[2018-02-10 07:31] LABS: ALB/GLOB RATIO 1.2 (1.0-2.1); ALBUMIN 3.9 g/dL (3.5-5.0); CALCIUM 9.5 mg/dl (8.6-10.4)
[2018-02-10 07:33] LABS: CK-MB 0.77 ng/mL (0.0-3.38); TROPONIN I 0.013 ng/mL (0.00-0.120)
[2018-02-10] MEDS: (Novolin R) Insulin Human Regular 100 units/ml vial SC SCH ×4 (08:38→22:03)
[2018-02-10] MEDS: Metoprolol Succinate 50 mg XL Tab PO SCH (10:54)
[2018-02-10] MEDS: Enoxaparin 80 mg Syringe SC SCH ×2 (10:54→21:38)
--- NOTE | 2018-02-10 11:40 | CT ---
PROCEDURE: CT Chest without contrast HISTORY: lt lung mass COMPARISON: None. TECHNIQUE: Contiguous axial images were obtained through the chest without intravenous contrast enhancement. Sagittal and coronal reconstructions were performed. Radiation dose (DLP): 925.3 mGy-cm. This CT exam was performed using one or more of the following dose reduction techniques: Automated exposure control, adjustment of the mA and/or kV according to patient size, and/or use of iterative reconstruction technique. FINDINGS: LUNGS: Clear lungs. Visualized airway clear. MEDIASTINUM: Unremarkable thoracic aorta. No aneurysm. Normal sized heart. Coronary arterial and valvular calcifications. Main pulmonary artery unremarkable. No vascular congestion. No lymphadenopathy. PLEURA: No pleural fluid. No pneumothorax. BONES: No acute fracture. Old right lateral 8th rib fracture No destructive lesion. UPPER ABDOMEN: Large left renal cyst measuring 9.2 x 8.3 cm. Smaller right renal cysts. . OTHER FINDINGS: None. IMPRESSION: No acute pulmonary disease. No pulmonary nodule, mass or consolidation. Large left renal cyst measuring up to 9.2 cm.
--- NOTE | 2018-02-10 23:50 | CP.PCM.PN ---
Subjective - Date & Time of Evaluation Date of Evaluation: 02/10/18 Time of Evaluation: 23:50 - Subjective Subjective: Patient is currently comfortable not in any distress. Some air noted last night. No palpitation. On examination: Blood pressure slightly on the high side. Chest bilateral good air entry no wheezing or rales noted irregular heart sound nontender abdomen Labs CAT scan of the chest showing no evidence of any acute pathology Assessment and recommendation: 82-year-old male with a history of diabetes hypertension and hypercholesteremia history of atrial fibrillation in the past he atrial tachyarrhythmias. Status post cardioversion in the past. Currently admitted with acute atrial flutter with rapid ventricular rate. Mild CHF. Patient will be needing cardioversion. Awaiting for cardioversion as per cardiology. On anticoagulation. Blood pressure management. Heart rate control. Will follow-up the patient. Mild insomnia noted. Lorazepam 0.5 mg tonight advised. Objective - Vital Signs/Intake and Output Vital Signs (last 24 hours): Temp Pulse Resp BP Pulse Ox 98.1 F 59 L 20 170/87 H 97 02/10/18 15:25 02/10/18 16:00 02/10/18 15:25 02/10/18 15:25 02/10/18 15:25 - Medications Medications: Current Medications Aspirin (Ecotrin) 81 mg PO DAILY [facility] Last Admin: 02/10/18 10:54 Dose: 81 mg Benzocaine/Menthol (Cepacol Sore Throat) 1 [place]son MT Q12 PRN PRN Reason: Sore Throat Enoxaparin Sodium (Lovenox) 80 mg SC Q12 [facility] Last Admin: 02/10/18 21:38 Dose: 80 mg Insulin Human Regular (Novolin R) 0 unit SC ACHS [facility] PRN Reason: Protocol Last Admin: 02/10/18 22:03 Dose: Not Given Losartan Potassium (Cozaar) 25 mg PO DAILY [facility] Last Admin: 02/10/18 10:54 Dose: 25 mg Metoprolol Succinate (Toprol Xl) 50 mg PO DAILY [facility] Last Admin: 02/10/18 10:54 Dose: 50 mg Rosuvastatin Calcium (Crestor) 5 mg PO HS [facility] Last Admin: 02/10/18 21:38 Dose: 5 mg - Labs Labs: 02/10/18 06:51 02/10/18 06:51 PT 12.0 SECONDS (9.7-12.2) 02/09/18 08:20 INR 1.1 02/09/18 08:20 APTT 30 SECONDS (21-34) 02/09/18 08:20
[2018-02-11] MEDS ORDERED: Lidocaine 4% (Laryng-O-Jet) Kit MM ONE (08:25)
[2018-02-11] MEDS ORDERED: Propofol 10 mg/ml Inj (20 ML) ONE ×2 (08:57→08:58)
[2018-02-11] MEDS ORDERED: Etomidate 20 mg/10ml Inj IV ONE (08:58)
[2018-02-11 10:09] LABS: CALCIUM 9.9 mg/dl (8.6-10.4)
[2018-02-11] MEDS ORDERED: Magnesium Sulfate 1 gm in D5W 1 GM/100 ML BAG IVPB ONE (10:12)
[2018-02-11] MEDS: Enoxaparin 80 mg Syringe SC SCH (10:36)
[2018-02-11] MEDS: (Novolin R) Insulin Human Regular 100 units/ml vial SC SCH ×4 (10:36→22:11)
[2018-02-11] MEDS: Metoprolol Succinate 50 mg XL Tab PO SCH (10:36)
[2018-02-11 10:38] LABS: CALCIUM 9.9 mg/dl (8.6-10.4)
--- NOTE | 2018-02-11 19:33 | CP.PCM.PN ---
Subjective - Date & Time of Evaluation Date of Evaluation: 02/11/18 Time of Evaluation: 19:33 - Subjective Subjective: Patient is morning awake and responding. He was having good sleep last night. He denies any chest pain or shortness of breath. Patient was seen by hide buyer today, underwent electrocardioversion. Successful cardioversion was done today. No chest pain or shortness of breath On examination: Vital signs stable chest good air entry bilaterally regular also nontender abdomen Labs reviewed CT scan of the chest showing no evidence of any acute pathology Assessment and recommendation: 82-year-old male with a history of hypertension atrial therapy N fibrillation diabetes. Status post a cardioversion today. We will monitor today. Possible discharge plan tomorrow. Low-dose beta-michaelle. Continue anticoagulation. We will follow the patient Objective - Vital Signs/Intake and Output Vital Signs (last 24 hours): Temp Pulse Resp BP Pulse Ox 97.9 F 64 20 169/83 H 96 02/11/18 15:14 02/11/18 15:14 02/11/18 15:14 02/11/18 15:14 02/11/18 15:14 - Medications Medications: Current Medications Aspirin (Ecotrin) 81 mg PO DAILY [facility] Last Admin: 02/11/18 10:35 Dose: Not Given Benzocaine/Menthol (Cepacol Sore Throat) 1 gibson MT Q12 PRN PRN Reason: Sore Throat Enoxaparin Sodium (Lovenox) 80 mg SC Q12 [facility] Last Admin: 02/11/18 10:36 Dose: Not Given Insulin Human Regular (Novolin R) 0 unit SC [facility] PRN Reason: Protocol Last Admin: 02/11/18 17:30 Dose: 33 units Losartan Potassium (Cozaar) 25 mg PO DAILY [facility] Last Admin: 02/11/18 10:35 Dose: Not Given Metoprolol Succinate (Toprol Xl) 50 mg PO DAILY [facility] Last Admin: 02/11/18 10:36 Dose: Not Given Rosuvastatin Calcium (Crestor) 5 mg PO HS [facility] Last Admin: 02/10/18 21:38 Dose: 5 mg - Labs Labs: 02/10/18 06:51 02/11/18 10:20 PT 12.0 SECONDS (9.7-12.2) 02/09/18 08:20 INR 1.1 02/09/18 08:20 APTT 30 SECONDS (21-34) 02/09/18 08:20
--- NOTE | 2018-02-11 21:15 | CARD ---
APPROVED REPORT EKG Measurement Heart [id number] [id number] <Conclusion> Atrial flutter with 4:1 AV conduction Left axis deviation Right bundle branch block Abnormal ECG
--- NOTE | 2018-02-12 00:31 | CP.PCM.PN ---
Subjective - Date & Time of Evaluation Date of Evaluation: 02/10/18 Time of Evaluation: 13:10 - Subjective Subjective: Patient seen and evaluated Scheduled for CARRIE/Cardioversion in am Objective - Vital Signs/Intake and Output Vital Signs (last 24 hours): Temp Pulse Resp BP Pulse Ox 97.9 F 64 20 169/83 H 96 02/11/18 15:14 02/11/18 15:14 02/11/18 15:14 02/11/18 15:14 02/12/18 00:25 - Medications Medications: Current Medications Apixaban (Eliquis) 5 mg PO Q12 [facility] Last Admin: 02/11/18 22:08 Dose: 5 mg Benzocaine/Menthol (Cepacol Sore Throat) 1 gibson MT Q12 PRN PRN Reason: Sore Throat Insulin Human Regular (Novolin R) 0 unit SC ACHS [facility] PRN Reason: Protocol Last Admin: 02/11/18 22:11 Dose: Not Given Losartan Potassium (Cozaar) 50 mg PO DAILY [facility] Metoprolol Tartrate (Lopressor) 12.5 mg PO BID [facility] Rosuvastatin Calcium (Crestor) 5 mg PO HS [facility] Last Admin: 02/11/18 22:09 Dose: 5 mg - Labs Labs: 02/10/18 06:51 02/11/18 10:20 PT 12.0 SECONDS (9.7-12.2) 02/09/18 08:20 INR 1.1 02/09/18 08:20 APTT 30 SECONDS (21-34) 02/09/18 08:20
--- NOTE | 2018-02-12 00:34 | CP.PCM.PN ---
Subjective - Date & Time of Evaluation Date of Evaluation: 02/11/18 Time of Evaluation: 18:30 - Subjective Subjective: Patient s/p CARRIE and Cardioversion Now in NSR Eliquis for 6 weeks B blockers Objective - Vital Signs/Intake and Output Vital Signs (last 24 hours): Temp Pulse Resp BP Pulse Ox 97.9 F 64 20 169/83 H 96 02/11/18 15:14 02/11/18 15:14 02/11/18 15:14 02/11/18 15:14 02/12/18 00:25 - Medications Medications: Current Medications Apixaban (Eliquis) 5 mg PO Q12 [facility] Last Admin: 02/11/18 22:08 Dose: 5 mg Benzocaine/Menthol (Cepacol Sore Throat) 1 gibson MT Q12 PRN PRN Reason: Sore Throat Insulin Human Regular (Novolin R) 0 unit SC ACHS JOHN PRN Reason: Protocol Last Admin: 02/11/18 22:11 Dose: Not Given Losartan Potassium (Cozaar) 50 mg PO DAILY [facility] Metoprolol Tartrate (Lopressor) 12.5 mg PO BID [facility] Rosuvastatin Calcium (Crestor) 5 mg PO HS [facility] Last Admin: 02/11/18 22:09 Dose: 5 mg - Labs Labs: 02/10/18 06:51 02/11/18 10:20 PT 12.0 SECONDS (9.7-12.2) 02/09/18 08:20 INR 1.1 02/09/18 08:20 APTT 30 SECONDS (21-34) 02/09/18 08:20
[2018-02-12] MEDS: (Novolin R) Insulin Human Regular 100 units/ml vial SC SCH ×2 (07:49→12:15)
[2018-02-12 08:27] VITALS: TEMP 97.5; O2SAT 100
--- NOTE | 2018-02-12 09:07 | CP.PCM.PN ---
Subjective - Date & Time of Evaluation Date of Evaluation: 02/12/18 Time of Evaluation: 09:00 - Subjective Subjective: Patient seen today,denies any chest pain, sob, headache, palpitations, N/V/D , states wants to go home NSR on monitor s/p CARRIE and cardiovertion No overnight events recorded on monitor Objective - Vital Signs/Intake and Output Vital Signs (last 24 hours): Temp Pulse Resp BP Pulse Ox 97.5 F L 66 20 204/91 H 100 02/12/18 07:00 02/12/18 08:32 02/12/18 07:00 02/12/18 08:32 02/12/18 07:00 Intake and Output: 02/12/18 02/12/18 06:59 18:59 Output Total 200 Balance -200 - Medications Medications: Current Medications Apixaban (Eliquis) 5 mg PO Q12 [facility] Last Admin: 02/11/18 22:08 Dose: 5 mg Benzocaine/Menthol (Cepacol Sore Throat) 1 gibson MT Q12 PRN PRN Reason: Sore Throat Insulin Human Regular (Novolin R) 0 unit SC [facility] PRN Reason: Protocol Last Admin: 02/12/18 07:49 Dose: Not Given Losartan Potassium (Cozaar) 50 mg PO DAILY [facility] Last Admin: 02/12/18 08:47 Dose: 50 mg Losartan Potassium (Cozaar) 50 mg PO STAT STA Stop: 02/12/18 09:07 Metoprolol Tartrate (Lopressor) 12.5 mg PO BID [facility] Last Admin: 02/12/18 08:55 Dose: 12.5 mg Rosuvastatin Calcium (Crestor) 5 mg PO HS [facility] Last Admin: 02/11/18 22:09 Dose: 5 mg - Labs Labs: 02/10/18 06:51 02/11/18 10:20 PT 12.0 SECONDS (9.7-12.2) 02/09/18 08:20 INR 1.1 02/09/18 08:20 APTT 30 SECONDS (21-34) 02/09/18 08:20 Assessment and Plan - Assessment and Plan (Free Text) Assessment: A/P 82 YR male with pmhx of admitted with Atrial flutter, General weakness, Congestive heart failure s/p CARRIE and cardioversion now on NSR and rate controlled bp noted up this am , pt stated he refused to take bp medication last night D/W , if bp sbp less than 155 can be discharged home with beta michaelle and eliquis D/W Dr. Yadav stat dose of losartan given and will repeat bp in 1 hr BP repeated and 167/ 78 , discussed with Dr. Yadav cleared for discharge home today and f/u wiht Dr. Ye office and Dr. Lewis office in 1 week Discussed in details with patient about eliquis the benefits and risks which include, bleeding , easily bruising, who understands well .AND INSTRUCTED PATIENT STOP TAKING ELIQUIS IF ANY BLEEDING NOTED AND contact Dr. Lewis Patient instructed to monitor BP 2/day and noticed high bp please returns to ED or contact Dr. Ye, All RX -e prescribed to patient pharmacy
[2018-02-12 13:02] VITALS: BP 167/76; PULSE 72
--- NOTE | 2018-02-13 07:53 | CARD ---
APPROVED REPORT EXAM: Transesophageal echocardiogram with color flow Doppler and Synchronized Cardioversion. INDICATION Atrial Fibrillation 2D DIMENSIONS LVOT Diameter2.0 (1.8-2.4cm) Aortic Valve AoV Peak Hiifnhvu853.4cm/sAoV VTI49.2cmAO Peak GR.24mmHg LVOT Peak Meawhheg94.9cm/sLVOT VTI17.15cmAO Mean GR.12mmHg SHANELLE (VMAX)1.79gk1LEQ (VTI)1.13cm2 Mitral Valve E/A ratio0.0 TDI E/Lateral E'0.0E/Medial E'0.0 Reason For Test : Rule out Intracardiac Thrombus. PROCEDURE After obtaining informed consent, patient underwent transesophageal echo in the [facility] [employer] [employer]. Type of Sedation : Conscious Sedation Sedation was provided by anesthesiologist. Sedation was achieved with intravenously. The CARRIE was performed complications. Synchronized Cardioversion acheived with 100 Joules after one attempt(s). Rhythm following Synchronized Cardioversion: Normal Sinus Rhythm Throughout the procedure, the blood pressure, pulse oximetry, cardiac rhythm, and rate were monitored. The patient tolerated the procedure without adverse effects. Recovery from conscious sedation was uneventful and vital signs were stable. LEFT VENTRICLE The left ventricle is normal size. Mild LVH The left ventricular function is normal. The left ventricular ejection fraction is within the normal range. There is normal LV segmental wall motion. No left ventricle thrombus noted on this study. There is no ventricular septal defect visualized. RIGHT VENTRICLE The right ventricle is normal size. The right ventricular systolic function is normal. ATRIA The left atrium is mildly dilated. VIRGIE free of thrombus The right atrium is mildly dilated. Small PFO noted with no right to left shunt AORTIC VALVE Aortic valve fibrosclerotic No aortic regurgitation is present. Moderate Aortic stenosis by planimetry. SHANELLE 1.2 sq cm There is no aortic valvular vegetation. MITRAL VALVE The mitral valve is normal in structure. There is no evidence of mitral valve prolapse. There is no mitral valve stenosis. Mitral regurgitation is mild. TRICUSPID VALVE The tricuspid valve is normal in structure. There is mild tricuspid regurgitation. There is no tricuspid valve prolapse or vegetation. There is no tricuspid valve stenosis. PULMONIC VALVE The pulmonary valve is normal in structure. GREAT VESSELS The aortic root is normal in size. <Conclusion> The left ventricular function is normal. The left ventricular ejection fraction is within the normal range. The right ventricular systolic function is normal. The right atrium is mildly dilated. Small PFO noted with no right to left shunt The left atrium is mildly dilated. VIRGIE free of thrombus Moderate Aortic stenosis by planimetry. SHANELLE 1.2 sq cm Mitral regurgitation is mild. There is mild tricuspid regurgitation. Patient successfully cardioverted for A flutter to NSR
--- NOTE | 2018-02-13 16:46 | CP.PCM.DIS ---
Provider - Provider Date of Admission: 02/09/18 11:22 Attending physician: Rodney Yadav MD Time Spent in preparation of Discharge (in minutes): 45 Hospital Course - Lab Results Lab Results: Most Recent Lab Values WBC 7.1 K/uL (4.8-10.8) 02/10/18 06:51 RBC 4.57 Mil/uL (4.40-5.90) 02/10/18 06:51 Hgb 14.8 g/dL (12.0-18.0) 02/10/18 06:51 Hct 43.3 % (35.0-51.0) 02/10/18 06:51 MCV 94.7 fL (80.0-94.0) H 02/10/18 06:51 MCH 32.3 pg (27.0-31.0) H 02/10/18 06:51 MCHC 34.1 g/dL (33.0-37.0) 02/10/18 06:51 RDW 12.6 % (11.5-14.5) 02/10/18 06:51 Plt Count 128 K/uL (130-400) L 02/10/18 06:51 MPV 11.4 fL (7.2-11.7) 02/10/18 06:51 Neut % (Auto) 55.4 % (50.0-75.0) 02/10/18 06:51 Lymph % (Auto) 34.0 % (20.0-40.0) 02/10/18 06:51 Freeborn % (Auto) 6.2 % (0.0-10.0) 02/10/18 06:51 Eos % (Auto) 3.7 % (0.0-4.0) 02/10/18 06:51 Baso % (Auto) 0.7 % (0.0-2.0) 02/10/18 06:51 Neut # (Auto) 3.9 K/uL (1.8-7.0) 02/10/18 06:51 Lymph # (Auto) 2.4 K/uL (1.0-4.3) 02/10/18 06:51 Freeborn # (Auto) 0.4 K/uL (0.0-0.8) 02/10/18 06:51 Eos # (Auto) 0.3 K/uL (0.0-0.7) 02/10/18 06:51 Baso # (Auto) 0.0 K/uL (0.0-0.2) 02/10/18 06:51 PT 12.0 SECONDS (9.7-12.2) 02/09/18 08:20 INR 1.1 02/09/18 08:20 APTT 30 SECONDS (21-34) 02/09/18 08:20 Sodium 139 mmol/L (132-148) 02/11/18 10:20 Potassium 4.9 mmol/L (3.6-5.2) 02/11/18 10:20 Chloride 104 mmol/L (98-107) 02/11/18 10:20 Carbon Dioxide 24 mmol/L (22-30) 02/11/18 10:20 Anion Gap 16 (10-20) 02/11/18 10:20 BUN 22 mg/dL (9-20) H 02/11/18 10:20 Creatinine 1.4 mg/dL (0.8-1.5) 02/11/18 10:20 Est GFR ( Amer) 59 02/11/18 10:20 Est GFR (Non-Af Amer) 49 02/11/18 10:20 POC Glucose (mg/dL) 275 mg/dL (65-110) H 02/12/18 11:15 Random Glucose 200 mg/dL (75-110) H 02/11/18 10:20 Calcium 9.9 mg/dl (8.6-10.4) 02/11/18 10:20 Phosphorus 3.1 mg/dL (2.5-4.5) 02/11/18 09:50 Magnesium 1.7 mg/dL (1.6-2.3) 02/11/18 09:50 Total Bilirubin 0.8 mg/dL (0.2-1.3) 02/10/18 06:51 AST 23 U/L (17-59) 02/10/18 06:51 ALT 29 U/L (21-72) 02/10/18 06:51 Alkaline Phosphatase 73 U/L (38-126) 02/10/18 06:51 Total Creatine Kinase 48 U/L (55-170) L 02/10/18 06:51 CK-MB (Mass) 0.77 ng/mL (0.0-3.38) 02/10/18 06:51 Troponin I 0.0130 ng/mL (0.00-0.120) 02/10/18 06:51 NT-Pro-B Natriuret Pep 1140 pg/mL (0-900) H 02/09/18 08:20 Total Protein 7.3 g/dL (6.3-8.3) 02/10/18 06:51 Albumin 3.9 g/dL (3.5-5.0) 02/10/18 06:51 Globulin 3.3 gm/dL (2.2-3.9) 02/10/18 06:51 Albumin/Globulin Ratio 1.2 (1.0-2.1) 02/10/18 06:51 TSH 3rd Generation 2.13 mIU/L (0.46-4.68) 02/10/18 06:51 - Hospital Course Hospital Course: Chief complaint feeling weak HPI: 82-year-old male with history of diabetes, BPH, hypercholesterolemia, renal insufficiency, history of irregular heartbeat in the past, had cardioversions in the past came to the emergency room after he was seen by PMD today. Recently he returned from [place], where he was there he was started having some sickness. He was not feeling well, shortness of breath noted, chest tightness noted, headache, dizziness, and feeling tired and weak. While he seen in the office patient had rapid heartbeat, and weakness. He was sent to the emergency room because of that. In the emergency room patient was evaluated, he was feeling slightly better, but continued to have a rapid heartbeat, got better after medications. Patient needed further management. Now he is having no chest pain. He has no sweating. Slightly feeling better. Past medical history: Diabetes, takes insulin, BPH, high cholesterol, hyperlipidemia, hypertension, atrial fibrillation, status post cardioversion in the past also leg edema in the past Current medications reviewed Surgical history none Family history mother at the age of 90, father also in their old age. Siblings no medical history noted Patient has 3 daughters, and many great grandsons grand daughters Social history: He smoked almost a 5-10 cigarettes per day for 5 years more than 50 years ago. No alcohol. Occasionally uses marijuana. Patient lives alone Review of system: Patient is having dizziness, headache, palpitation, weakness, sweating, shortness of breath on exertion. Unable to walk less than 1 - 2 blocks. No diarrhea no nausea no fever noted No cough. Minimal sore throat noted but minimal cough with mucus noted now On examination: Vital signs stable. Chest bilateral good air entry. 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 Elevated proBNP noted, cardiac enzymes negative. CBC is normal. Urinalysis currently pending. X-ray chest showing evidence of no acute pathology Assessment and recommendation: 82-year-old male admitted to the hospital with multiple medical history including diabetes, BPH, hypercholesterolemia, hypertension, history of atrial flutter, status post cardioversions in the past admitted now with a possible acute rapid ventricular rate with the atrial flutter and fibrillation. Weakness associated with rapid ventricular rate. Underlying possible CHF secondary to atrial flutter. Patient also has a possible upper respiratory infection, but stable. Cardiology evaluation. Continue to monitor. Telemetry monitoring. DVT GI prophylaxis. Anticoagulation. We will get a thyroid profile. Patient may need cardioversion. Patient also may need ablation, discussed with the patient, currently he is reluctant. Echocardiogram ordered will follow the patient Course in the hospital: Patient initially the rate is controlled with the Cardizem. He started feeling better. The heart rate was controlled. He was persistently having atrial flutter. Seen by behavioral health consultant. Anticoagulation was started. Patient underwent a cardioversion on 02/11/2018. Patient become sinus rhythm. He was doing well. The day of discharge patient was having elevated blood pressure. Losartan 100 mg was given. Amlodipine 5 mg was given. Patient blood pressure controlled well after that. He was also started on anticoagulation. Discussed with the patient in detail about the overall condition. He will continue the Eliquis 5 mg twice a day for at least one month until he will be seen by behavioral health consultant as an outpatient. Patient also given option for ablation therapy. He will monitor the blood pressure. Advised him to take rest. He will follow-up with the behavioral health consultant, ROCIO in 1 week. Final diagnosis atrial flutter with rapid ventricular rate. Mild vascular congestion. Weakness. Hypertension. Hypercholesteremia. Diabetes. BPH. Discharge Plan - Discharge Medications Prescriptions: Losartan [Cozaar] 100 mg PO DAILY #30 tab Apixaban [Eliquis] 5 mg PO Q12 #60 tab Metoprolol Tartrate [Lopressor] 12.5 mg PO BID #60 tab amLODIPine [Norvasc] 5 mg PO DAILY #30 tab - Follow Up Plan Condition: STABLE Disposition: HOME/ ROUTINE Instructions: Heart Healthy Diet, Heart Failure, Adult (DC), Generalized Weakness (DC), Apixaban, Amlodipine, Losartan, Metoprolol, Atrial Flutter (DC) Additional Instructions: Please f/u with Dr. Chilel office in 1 week Please f/u with Dr. Celestin office in 1 week Please continue medication as per med. rec. 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
--- NOTE | 2018-02-14 21:45 | CARD ---
APPROVED REPORT EKG Measurement Heart [id number] <Conclusion> Sinus rhythm with sinus arrhythmia with 1st degree AV block Right bundle branch block Left anterior fascicular block Bifascicular block Moderate voltage criteria for LVH. Abnormal ECG
== END 2018-02-12 13:58 | disposition home or self-care (01) ==
LOC: C.ER 07:11 → C.9E 11:22 → C.6T 14:09
PROVIDERS: ADMIT Internal Medicine; ATTEND Internal Medicine
DX: I48.91 Unspecified atrial fibrillation (principal); E78.5 Hyperlipidemia, unspecified; G47.00 Insomnia, unspecified; I48.92 Unspecified atrial flutter; N40.0 Benign prostatic hyperplasia without lower urinary tract symptoms; Z79.4 Long term (current) use of insulin; Z87.891 Personal history of nicotine dependence; I13.0 Hypertensive heart and chronic kidney disease with heart failure and stage 1 through stage 4 chronic kidney disease, or unspecified chronic kidney disease; N18.9 Chronic kidney disease, unspecified; I50.9 Heart failure, unspecified; E11.22 Type 2 diabetes mellitus with diabetic chronic kidney disease; F12.90 Cannabis use, unspecified, uncomplicated; E78.00 Pure hypercholesterolemia, unspecified
CPT/HCPCS: 36415; 71045; 71250; 80048; 80053; 82310; 82550; 82553; 82948; 83735; 83880; 84100; 84443; 84484; 85025; 85610; 85730; 93005; 93312; 96374; 99285; G0378; J1650; J1940; J2704

== ENCOUNTER 2018-05-28 03:13 | Emergency (ER) | payer MEDICARE ==
[2018-05-28 03:13] VITALS: BMI 30.5
[2018-05-28] MEDS ORDERED: Oxycodone/Acetaminophen 5/325 mg Tab PO STA (03:55)
[2018-05-28] MEDS ORDERED: Oxycodone/Acetaminophen 5/325 mg Tab ONE (04:01)
[2018-05-28 04:48] VITALS: TEMP 99.5; O2SAT 98
[2018-05-28 05:31] VITALS: BP 126/79; PULSE 108; RESP 20
--- NOTE | 2018-05-28 05:47 | C.PDOC ---
History Of Present Illness 83 year old male presents to the ER with a complaint of moderate to severe right shoulder pain. Patient recently had an MRI done that showed a rotator cuff tear at two tendons, he saw his ortho today who refilled his percocet Rx. Patient last took pain medication 16 hours ago. Denies recent trauma. Chief Complaint (Nursing): Upper Extremity Problem/Injury History Per: Patient History/Exam Limitations: no limitations Onset/Duration Of Symptoms: Hrs Current Symptoms Are (Timing): Still Present Exacerbating Factor(s): Nothing Recent travel outside of the [place]: No Past Medical History Reviewed: Historical Data, Nursing Documentation, Vital Signs Vital Signs: Last Vital Signs Temp 99.5 F 05/28/18 04:45 Pulse 108 H 05/28/18 05:20 Resp 20 05/28/18 05:20 BP 126/79 05/28/18 05:20 Pulse Ox 98 05/28/18 05:20 - Medical History PMH: Benign Prostatic Hyperplasia, Cardia Arrhythmia (a flutter), Fractures (right hip 1970), HTN, Hypercholesterolemia, Chronic Kidney Disease - [facility] Procedures ATRIAL CARDIOVERSION (12/26/13) DX ULTRASOUND-HEART (12/26/13) Family History: States: Unknown Family Hx - Social History Hx Alcohol Use: No Hx Substance Use: No - Immunization History Hx Tetanus Toxoid Vaccination: No Hx Influenza Vaccination: No Hx Pneumococcal Vaccination: No Review Of Systems Musculoskeletal: Positive for: Shoulder Pain (Right) Neurological: Negative for: Weakness, Numbness Physical Exam - Physical Exam Appears: Non-toxic Skin: Normal Color, Warm, Dry Head: Atraumatic, Normacephalic Eye(s): bilateral: Normal Inspection Extremity: Capillary Refill (<2 seconds), Other (Diffuse right shoulder tenderness) Pulses: Left Radial: Normal, Right Radial: Normal Neurological/Psych: Oriented x3, Normal Speech, Normal Motor, Normal Sensation ED Course And Treatment O2 Sat by Pulse Oximetry: 98 (Room air) Pulse Ox Interpretation: Normal Progress Note: Flexeril and percocet administered. On reevaluation, patient reports improvement of pain, he was placed in an arm sling for support and advised to follow up with ortho. Disposition - Disposition Referrals: Paco Lindsey MD [Primary Care Provider] - Collins Rodarte III, MD [Staff Provider] - Disposition: HOME/ ROUTINE Disposition Time: 05:00 Condition: IMPROVED Additional Instructions: LALO MCCURDY, thank you for letting us take care of you today. Your provider was Medhat Hsieh DO and you were treated for RT ARM AND SHOULDER PAIN. The emergency medical care you received today was directed at your acute symptoms. If you were prescribed any medication, please fill it and take as directed. It may take several days for your symptoms to resolve. Return to the Emergency Department if your symptoms worsen, do not improve, or if you have any other problems. Please contact your doctor or call one of the physicians/clinics you have been referred to that are listed on the Patient Visit Information form that is included in your discharge packet. Bring any paperwork you were given at discharge with you along with any medications you are taking to your follow up visit. Our treatment cannot replace ongoing medical care by a primary care provider outside of the emergency department. Thank you for allowing the [facility] team to be part of your care today. Follow up with an orthopedic doctor for evaluation of your shoulder injury. Prescriptions: Cyclobenzaprine [Cyclobenzaprine HCl] 10 mg PO Q8 PRN #20 tab PRN Reason: Muscle Spasm Instructions: Rotator Cuff Injury (DC) Forms: [employer] (South Korean) - Clinical Impression Clinical Impression: Rotator cuff tear - Scribe Statement The provider has reviewed the documentation as recorded by the Scribe Kai Hidalgo All medical record entries made by the Scribe were at my direction and personally dictated by me. I have reviewed the chart and agree that the record accurately reflects my personal performance of the history, physical exam, medical decision making, and the department course for this patient. I have also personally directed, reviewed, and agree with the discharge instructions and disposition.
== END 2018-05-28 05:31 | disposition home or self-care (01) ==
LOC: C.ER 03:13 → SUPCPDRO 03:13 → C.ER 05:31
DX: M75.101 Unspecified rotator cuff tear or rupture of right shoulder, not specified as traumatic (principal)

== ENCOUNTER 2018-05-29 22:03 | Inpatient (IN) | payer MEDICARE ==
[2018-05-29 22:04] VITALS: BMI 30.5
[2018-05-29] MEDS ORDERED: Sodium Chloride 0.9% 1,000 ML IV ONE (22:23)
--- NOTE | 2018-05-29 22:23 | C.PDOC ---
History Of Present Illness pt was brought in by a friend who states that pt has become increasingly confused. pt has a rotator cuff tear, and was seen yesterday in our ed for shoulder pain and was prescribed flexeril. Patient has also been taking percocet every 4 hours for pain. No evidence of trauma. Difficult to obtain any history from the patient. Time Seen by Provider: 05/29/18 22:22 Chief Complaint (Nursing): Altered Mental Status History Per: Family History/Exam Limitations: Clinical Condition Onset/Duration Of Symptoms: Hrs Current Symptoms Are (Timing): Still Present Usual Baseline: Alert Oriented Exacerbating Factor(s): Drug Use Use Of Anticoag/Antiplatelets: Yes Speech Is: Slurred Decreased Ability To: Stand, Walk Severity: Moderate Pain Scale Rating Of: 5 Recent travel outside of the [place]: No Additional History Per: Family Associated Symptoms: denies: Fever, Chills Past Medical History Reviewed: Historical Data, Nursing Documentation, Vital Signs Vital Signs: Last Vital Signs Temp 98.1 F 05/29/18 22:11 Pulse 144 H 05/29/18 22:11 Resp 24 05/29/18 22:11 BP 112/61 05/29/18 22:11 Pulse Ox 97 05/29/18 22:11 - Medical History PMH: Benign Prostatic Hyperplasia, Cardia Arrhythmia (a flutter), Fractures (right hip 1970), HTN, Hypercholesterolemia, Chronic Kidney Disease - [facility] Procedures ATRIAL CARDIOVERSION (12/26/13) DX ULTRASOUND-HEART (12/26/13) Family History: States: No Known Family Hx - Social History Hx Alcohol Use: No Hx Substance Use: No - Immunization History Hx Tetanus Toxoid Vaccination: No Hx Influenza Vaccination: No Hx Pneumococcal Vaccination: No Review Of Systems Review Of Systems: ROS cannot be obtained secondary to pt's inabilty to answer questions. Physical Exam - Physical Exam Appears: In Acute Distress, Confused Skin: Warm, Dry Head: Normacephalic Eye(s): bilateral: Normal Inspection Oral Mucosa: Dry Tongue: Normal Appearing Lips: Other (dry) Neck: Trachea Midline, Supple Chest: Symmetrical Cardiovascular: Rhythm Regular (tachy) Respiratory: No Rales, Rhonchi, No Wheezing Gastrointestinal/Abdominal: Soft, No Tenderness Back: Normal Inspection Extremity: Normal ROM, Tenderness (right shoulder) Extremity: Right: Limited ROM To Joint (shoulder), Bilateral: Atraumatic, No Pedal Edema, Normal Color And Temperature Pulses: Left Dorsalis Pedis: Normal, Right Dorsalis Pedis: Normal Neurological/Psych: Slow To Respond With Command Gait: Unable To Assess ED Course And Treatment - Laboratory Results Result Diagrams: 05/29/18 22:30 05/29/18 22:30 ECG: Interpreted By Me, Viewed By Me ECG Rhythm: Sinus Tachycardia (125), R BBB, Nonspecific Changes O2 Sat by Pulse Oximetry: 97 Pulse Ox Interpretation: Normal - Radiology CXR: Interpreted by Me, Viewed By Me Progress Note: spoke with dr wiggins -icu- will come and see the pt in the ed. pt seem to respond to narcan. a little more awake Critical Care Time - Critical Care Note Total Time (in mins): 30 Documented critical care: time excludes all time spent performing seperately billable procedures. Disposition Discussed With : Rodney Yadav Comment: accepted the pt on his service and took over the care Doctor Will See Patient In The: ED Counseled Patient/Family Regarding: Studies Performed, Diagnosis - Disposition Disposition: HOSPITALIZED Disposition Time: 22:22 Condition: CRITICAL Forms: [facility] (Welsh) - Clinical Impression Clinical Impression: Renal insufficiency, Pancreatitis, Hyperglycemia, Leukocytosis, Drug overdose Decision To Admit - Pt Status Changed To: Hospital Disposition Of: Inpatient - Admit Certification Admit to Inpatient:: After my assessment, the patient will require hospitalization for at least two midnights. This is because of the severity of symptoms shown, intensity of services needed, and/or the medical risk in this patient being treated as an outpatient. - InPatient: Physician Admission Certification:: After my assessment, the patient will require hospitalization for at least two midnights. This is because of the severity of symptoms shown, intensity of services needed, and/or the medical risk in this patient being treated as an outpatient. - . Bed Request Type: ICU Patient Diagnosis: Renal insufficiency, Pancreatitis, Hyperglycemia, Leukocytosis, Drug overdose
[2018-05-29 22:32] LABS: BASO % 0.1 % (0.0-2.0); EOS % 0.2 % (0.0-4.0); HEMOGLOBIN 13.4 g/dL (12.0-18.0); MEAN CELL VOLUME 96.8 fL (80.0-94.0); MEAN CORPUSCULAR HEMOGLOBIN 31.9 pg (27.0-31.0); MEAN PLATELET VOLUME 11.1 fL (7.2-11.7); MONO # 0.9 K/uL (0.0-0.8); MONO % 4.6 % (0.0-10.0); NEUT # 17.2 K/uL (1.8-7.0); NEUT % 90.1 % (50.0-75.0); PLATELET COUNT 249 K/uL (130-400); RBC 4.21 Mil/uL (4.40-5.90); WHITE BLOOD COUNT 19.1 K/uL (4.8-10.8)
[2018-05-29 22:45] LABS: INR 2.5; PROTHROMBIN TIME 27.5 SECONDS (9.7-12.2)
[2018-05-29 22:51] LABS: ABG ALLEN TEST PO; ARTERIAL BLOOD GAS HCO3 19.4 mmol/L (21-28); ARTERIAL BLOOD GAS O2 SAT 99.1 % (95-98); ARTERIAL BLOOD GAS PCO2 28 mm/Hg (35-45); ARTERIAL BLOOD GAS PH 7.38 (7.35-7.45); ARTERIAL BLOOD GAS PO2 96 mm/Hg (80-100); ARTERIAL BLOOD GAS TCO2 17.5 mmol/L (22-28)
[2018-05-29 22:58] LABS: BANDS 1 % (0-2); EOSINOPHIL 1 % (0-4); LARGE PLATELETS PRESENT; LYMPHOCYTE 7 % (20-40); MONOCYTE 3 % (0-10); NEUTROPHIL 88 % (50-75); PLATELET ESTIMATE NORMAL (NORMAL); TOTAL CELLS COUNTED 100; TOXIC GRANULATION PRESENT
[2018-05-29 22:59] LABS: ACETAMINOPHEN < 10.0 ug/mL (10.0-30.0); SALICYLATE < 1.0 mg/dL 1
[2018-05-29 23:16] LABS: ALBUMIN 3.6 g/dL (3.5-5.0); ALT/SGPT 18 U/L (21-72); AST/SGOT 35 U/L (17-59); BLOOD UREA NITROGEN 58 mg/dL (9-20); CALCIUM 9.9 mg/dl (8.6-10.4); GFR NON-AFRICAN AMERICAN 17
[2018-05-29] MEDS ORDERED: (Novolin R) Insulin Human Regular 100 units/ml vial IVP STA (23:19)
[2018-05-29 23:23] LABS: LIPASE 5218 U/L (23-300)
[2018-05-29] MEDS ORDERED: (Novolin R) Insulin Human Regular 100 units/ml vial ONE (23:28)
[2018-05-30] MEDS ORDERED: Sodium Chloride 0.9% 1,000 ML IV ONE ×2 (00:51→01:52)
[2018-05-30] MEDS ORDERED: Piperacillin/Tazobact 3.375 gm 100 ML IVPB STA (00:52)
[2018-05-30] MEDS ORDERED: Piperacillin/Tazobact 3.375 gm 100 ML IVPB ONE (00:57)
[2018-05-30] MEDS ORDERED: metroNIDAZOLE IV 500 mg/100 ml 500 MG/100 ML BAG IVPB SCH (01:00)
[2018-05-30] MEDS ORDERED: metroNIDAZOLE IV 500 mg/100 ml 500 MG/100 ML BAG ONE (01:31)
[2018-05-30 02:30] LABS: SQUAMOUS EPITHIAL < 1 /hpf (0-5); URINE BACTERIA OCC (<OCC); URINE BILIRUBIN NEGATIVE (NEGATIVE); URINE BLOOD 3+ (NEGATIVE); URINE CLARITY Hazy (Clear); URINE COLOR Yellow (YELLOW); URINE GLUCOSE (UA) 3+ mg/dL (Normal); URINE LEUKOCYTE ESTERASE 3+ Leu/uL (Negative); URINE PROTEIN 2+ mg/dL (NEGATIVE); URINE UROBILINOGEN NORMAL mg/dL (0.2-1.0)
[2018-05-30 02:55] LABS: BARBITURATES, UR NEGATIVE (NEGATIVE); BENZODIAZEPINES, UR NEGATIVE (NEGATIVE); OPIATES, UR POSITIVE (NEGATIVE); PHENCYCLIDINE, UR NEGATIVE (NEGATIVE)
[2018-05-30] MEDS ORDERED: Naloxone 0.4 mg/ml Inj (Adult) IVP ONE (03:27)
[2018-05-30] MEDS ORDERED: Naloxone 0.4 mg/ml Inj (Adult) ONE (03:34)
[2018-05-30] MEDS ORDERED: Dextrose 50% SYRINGE Inj (50 ml) IV PRN (04:09)
[2018-05-30] MEDS ORDERED: Glucagon Recombinant 1 mg Inj IM PRN (04:09)
[2018-05-30] MEDS ORDERED: (Novolin N) Insulin Human Isophane (NPH) 100 u/ml 10 ml vial SC ONE (04:10)
[2018-05-30 05:03] LABS: BASO % 0.2 % (0.0-2.0); EOS # 0.1 K/uL (0.0-0.7); EOS % 0.3 % (0.0-4.0); LYMPH % 5.4 % (20.0-40.0); MEAN CELL VOLUME 96.8 fL (80.0-94.0); MEAN CORPUSCULAR HGB CONC 33.1 g/dL (33.0-37.0); MEAN PLATELET VOLUME 10.8 fL (7.2-11.7); MONO # 0.7 K/uL (0.0-0.8); NEUT # 16.4 K/uL (1.8-7.0); NEUT % 90.1 % (50.0-75.0); NRBC % 0.1 % (0.0-2.0); PLATELET COUNT 174 K/uL (130-400); RBC 3.76 Mil/uL (4.40-5.90); RED CELL DISTRIBUTION WIDTH 12.6 % (11.5-14.5); WHITE BLOOD COUNT 18.1 K/uL (4.8-10.8)
[2018-05-30 05:22] LABS: INR 2.2; PROTHROMBIN TIME 24.4 SECONDS (9.7-12.2)
[2018-05-30 05:31] LABS: ALB/GLOB RATIO 0.9 (1.0-2.1); ALBUMIN 2.7 g/dL (3.5-5.0); CALCIUM 8.3 mg/dl (8.6-10.4)
[2018-05-30] MEDS: Sodium Chloride 0.9% 1,000 ML IV SCH (05:40)
[2018-05-30 05:52] LABS: TROPONIN I 0.084 ng/mL (0.00-0.120)
[2018-05-30 06:43] LABS: BANDS 1 % (0-2); LYMPHOCYTE 4 % (20-40); MONOCYTE 3 % (0-10); NEUTROPHIL 92 % (50-75); PLATELET ESTIMATE NORMAL (NORMAL); TOTAL CELLS COUNTED 100
[2018-05-30] MEDS ORDERED: Piperacill/Tazo 2.25gm in Dex 2.25 GM/50 ML BAG IVPB SCH (07:00)
--- NOTE | 2018-05-30 07:12 | CT ---
Date of service: 05/29/2018 PROCEDURE: CT HEAD WITHOUT CONTRAST. HISTORY: Altered mental status COMPARISON: None available. TECHNIQUE: Axial computed tomography images were obtained through the head/brain without intravenous contrast. Radiation dose: Total exam DLP = 1034.82 mGy-cm. This CT exam was performed using one or more of the following dose reduction techniques: Automated exposure control, adjustment of the mA and/or kV according to patient size, and/or use of iterative reconstruction technique. FINDINGS: HEMORRHAGE: No intracranial hemorrhage. BRAIN: No mass effect or edema. Scattered focal lucencies in the subcortical and periventricular white matter suggestive for chronic microvascular ischemic change. Bilateral basal ganglia calcifications. VENTRICLES: Prominent ventricles. CALVARIUM: Unremarkable. PARANASAL SINUSES: Right sphenoid sinusitis. MASTOID AIR CELLS: Unremarkable as visualized. No inflammatory changes. OTHER FINDINGS: Intracranial arterial calcifications. IMPRESSION: Chronic microvascular ischemic changes. No acute intracranial abnormality. If symptoms persists, consider correlation with MRI. These findings were preliminarily reported at 11:20 p.m. on 05/29/[address] Medhat Joe from [employer].
--- NOTE | 2018-05-30 07:33 | CP.PCM.PCO ---
Additional Comments - Additional Comments Additional Comments: 83-year-old male with history of diabetes, BPH, hypercholesterolemia, renal insufficiency, history of irregular heartbeat in the past, had cardioversions in the past came to ER second visit next day this time, the first visit was day before yesterday for right shoulder pain and he was started on oral percoct, patient was brought in last night for lethargy was found to have MARTHA, hyperglycemia, dehydration, patient was seen by me post 4 lit iv resuscitation, hyperkalemia. Upon my eval patient was euvolemic, vitals table, patient was lethargic, small pupils, lethargy improved significantly with norcan 0.4mg single dose, patient also seems to be on flexeril and lyrica which may me contributing. Repeat labs have improved, see orders for detail. Patient was assessed for being admitted to ICU overnight will be assessed by ICU physician this am.
[2018-05-30] MEDS: (Novolin R) Insulin Human Regular 100 units/ml vial SC SCH ×4 (08:31→21:21)
--- NOTE | 2018-05-30 09:31 | RAD ---
Date of service: 05/29/2018 HISTORY: Altered mental status COMPARISON: 02/09/2018 FINDINGS: LUNGS: Mild venous congestion. Upper lobe granulomatous changes. PLEURA: No significant pleural effusion identified, no pneumothorax apparent. CARDIOVASCULAR: Aortic atherosclerotic calcification present Enlarged ectatic aorta. Cardiomegaly. OSSEOUS STRUCTURES: No significant abnormalities. VISUALIZED UPPER ABDOMEN: Normal. OTHER FINDINGS: None. IMPRESSION: Mild venous congestion. Upper lobe granulomatous changes.
[2018-05-30] MEDS: Labetalol 5mg/ml (4ml) IV PRN (09:40)
[2018-05-30] MEDS: Piperacillin/Tazobact 2.25 GM in Sodium Chloride 0.9% 50 ML IV SCH ×2 (13:26→19:27)
--- NOTE | 2018-05-30 15:01 | CP.PCM.CON ---
History of Present Illness - History of Present Illness History of Present Illness: CONSULTATION DICTATED TOXIC ENCEPAHLOPATHY - RABIDOMYOLYSIS S/P FALL HYDRATION BLOOD WORK UP EEG REPEAT CAT BRAIN TODAY Past Patient History - Infectious Disease Hx of Infectious Diseases: None - Past Medical History & Family History Past Medical History?: Yes - Past Social History Smoking Status: Former Smoker - CARDIAC Hx Cardia Arrhythmia: Yes (a flutter) Hx Hypercholesterolemia: Yes Hx Hypertension: Yes - PULMONARY Hx Respiratory Disorders: No - NEUROLOGICAL Hx Neurological Disorder: No - HEENT Other/Comment: wears glasses - RENAL Hx Chronic Kidney Disease: Yes - ENDOCRINE/METABOLIC Hx Diabetes Mellitus Type 2: Yes - INTEGUMENTARY Hx Dermatological Problems: No - MUSCULOSKELETAL/RHEUMATOLOGICAL Hx Falls: Yes - GASTROINTESTINAL Hx Gastrointestinal Disorders: No - GENITOURINARY/GYNECOLOGICAL Hx Prostate Problems: Yes (BPH) - PSYCHIATRIC Hx Substance Use: Yes - SURGICAL HISTORY Hx Surgeries: Yes (cannot recall all surgeries) Other/Comment: cardiac ablation - ANESTHESIA Hx Anesthesia: Yes (cannot recall what procdure he had that involved anesthesia) Hx Anesthesia Reactions: No Hx Malignant Hyperthermia: No Meds Allergies/Adverse Reactions: Allergies Allergy/AdvReac Type Severity Reaction Status Date / Time No Known Allergies Allergy Verified 05/28/18 03:21 - Medications Medications: Current Medications Amlodipine Besylate (Norvasc) 5 mg PO DAILY JOHN Apixaban (Eliquis) 5 mg PO Q12 JOHN Dextrose (Dextrose 50% Inj) 0 ml IV STAT PRN; Protocol PRN Reason: Hypoglycemia Protocol Dextrose (Glutose 15) 0 gm PO ONCE PRN; Protocol PRN Reason: Hypoglycemia Protocol Famotidine (Pepcid) 20 mg PO DAILY JOHN Gabapentin (Neurontin) 100 mg PO BID JOHN Glucagon (Glucagen Diagnostic Kit) 0 mg IM STAT PRN; Protocol PRN Reason: Hypoglycemia Protocol Metronidazole (Flagyl) 500 mg in 100 mls @ 100 mls/hr IVPB STAT JOHN; Protocol Last Admin: 05/30/18 01:33 Dose: 100 mls/hr Dextrose (Dextrose 5% In Water 1000 Ml) 1,000 mls @ 0 mls/hr IV .Q0M PRN; Protocol PRN Reason: Hypoglycemia Protocol Sodium Chloride (Sodium Chloride 0.9%) 1,000 mls @ 100 mls/hr IV .Q10H JOHN Last Admin: 05/30/18 05:40 Dose: 100 mls/hr Piperacillin Sod/Tazobactam (Sod 2.25 gm/ Sodium Chloride) 50 mls @ 100 mls/hr IV Q6H [facility]; Protocol Influenza Virus Vaccine (Fluzone Quad ) 60 mcg IM .ONCE ONE Stop: 06/01/18 10:01 Insulin Human Regular (Novolin R) 0 unit SC ACHS JOHN; Protocol Last Admin: 05/30/18 12:30 Dose: 6 units Labetalol HCl (Trandate) 10 mg IV Q6H PRN PRN Reason: Systolic Blood Pressure Last Admin: 05/30/18 09:40 Dose: 10 mg Metoprolol Tartrate (Lopressor) 12.5 mg PO BID JOHN Pneumococcal Polyvalent Vaccine (Pneumovax 23 Vaccine) 0.5 ml IM .ONCE ONE Stop: 06/01/18 10:01 Rosuvastatin Calcium (Crestor) 5 mg PO HS [facility] Results - Vital Signs Recent Vital Signs: Last Vital Signs Temp 98.2 F 05/30/18 06:00 Pulse 98 H 05/30/18 14:31 Resp 25 H 05/30/18 11:01 BP 143/86 05/30/18 11:01 Pulse Ox 95 05/30/18 11:01 - Labs Result Diagrams: 05/30/18 04:58 05/30/18 04:58 Labs: Laboratory Results - last 24 hr 05/29/18 05/29/18 05/29/18 22:30 22:30 22:30 WBC 19.1 H D RBC 4.21 L Hgb 13.4 Hct 40.7 MCV 96.8 H D MCH 31.9 H MCHC 33.0 RDW 13.0 Plt Count 249 D MPV 11.1 Neut % (Auto) 90.1 H Lymph % (Auto) 5.0 L [place] % (Auto) 4.6 Eos % (Auto) 0.2 Baso % (Auto) 0.1 Neut # (Auto) 17.2 H Lymph # (Auto) 1.0 [place] # (Auto) 0.9 H Eos # (Auto) 0.0 Baso # (Auto) 0.0 Neutrophils % (Manual) 88 H Band Neutrophils % 1 Lymphocytes % (Manual) 7 L Monocytes % (Manual) 3 Eosinophils % (Manual) 1 Toxic Granulation Present Platelet Estimate Normal Large Platelets Present PT 27.5 H INR 2.5 APTT 31 Puncture Site pCO2 pO2 HCO3 ABG pH ABG Total CO2 ABG O2 Saturation ABG Base Excess Abel Test ABG Potassium A-a O2 Difference Respiratory Index Glucose Lactate FiO2 Crit Value Called To Crit Value Called By Crit Value Read Back Blood Gas Notified Time Sodium 132 Potassium 5.8 H Chloride 96 L Carbon Dioxide 17 L Anion Gap 25 H BUN 58 H Creatinine 3.4 H Est GFR ( Amer) 21 Est GFR (Non-Af Amer) 17 Random Glucose 602 H* D Hemoglobin A1c Lactic Acid Calcium 9.9 Phosphorus Magnesium Total Bilirubin 1.3 AST 35 ALT 18 L D Alkaline Phosphatase 71 Ammonia Total Creatine Kinase Troponin I Total Protein 7.2 Albumin 3.6 Globulin 3.6 Albumin/Globulin Ratio 1.0 Amylase Lipase 5218 H Arterial Blood Potassium Urine Color Urine Clarity Urine pH Ur Specific [place] Urine Protein Urine Glucose (UA) Urine Ketones Urine Blood Urine Nitrate Urine Bilirubin Urine Urobilinogen Ur Leukocyte Esterase Urine WBC (Auto) Urine RBC (Auto) Ur Squamous Epith Cells Urine Bacteria Hyaline Casts Urine Yeast (Budding) Salicylates Urine Opiates Screen Urine Methadone Screen Acetaminophen Ur Barbiturates Screen Ur Phencyclidine Scrn Ur Amphetamines Screen U Benzodiazepines Scrn U Oth Cocaine Metabols U Cannabinoids Screen Alcohol, Quantitative < 10 05/29/18 05/29/18 05/29/18 22:30 22:38 22:46 WBC RBC Hgb Hct MCV MCH MCHC RDW Plt Count MPV Neut % (Auto) Lymph % (Auto) [place] % (Auto) Eos % (Auto) Baso % (Auto) Neut # (Auto) Lymph # (Auto) [place] # (Auto) Eos # (Auto) Baso # (Auto) Neutrophils % (Manual) Band Neutrophils % Lymphocytes % (Manual) Monocytes % (Manual) Eosinophils % (Manual) Toxic Granulation Platelet Estimate Large Platelets PT INR APTT Puncture Site Lr pCO2 28 L pO2 96 HCO3 19.4 L ABG pH 7.38 ABG Total CO2 17.5 L ABG O2 Saturation 99.1 H ABG Base Excess -7.1 L Abel Test Po ABG Potassium 4.7 A-a O2 Difference 19.0 Respiratory Index 0.2 Glucose 602 H* Lactate 2.1 FiO2 21.0 Crit Value Called To Dr. york Crit Value Called By Andrea mallavo Crit Value Read Back Y Blood Gas Notified Time 2251 Sodium 130.0 L Potassium Chloride 101.0 Carbon Dioxide Anion Gap BUN Creatinine Est GFR ( Amer) Est GFR (Non-Af Amer) Random Glucose Hemoglobin A1c Lactic Acid Calcium Phosphorus Magnesium Total Bilirubin AST ALT Alkaline Phosphatase Ammonia < 9 L Total Creatine Kinase Troponin I Total Protein Albumin Globulin Albumin/Globulin Ratio Amylase Lipase Arterial Blood Potassium 4.7 Urine Color Urine Clarity Urine pH Ur Specific [place] Urine Protein Urine Glucose (UA) Urine Ketones Urine Blood Urine Nitrate Urine Bilirubin Urine Urobilinogen Ur Leukocyte Esterase Urine WBC (Auto) Urine RBC (Auto) Ur Squamous Epith Cells Urine Bacteria Hyaline Casts Urine Yeast (Budding) Salicylates < 1.0 Urine Opiates Screen Urine Methadone Screen Acetaminophen < 10.0 L Ur Barbiturates Screen Ur Phencyclidine Scrn Ur Amphetamines Screen U Benzodiazepines Scrn U Oth Cocaine Metabols U Cannabinoids Screen Alcohol, Quantitative 05/30/18 05/30/18 05/30/18 02:15 02:15 02:33 WBC RBC Hgb Hct MCV MCH MCHC RDW Plt Count MPV Neut % (Auto) Lymph % (Auto) [place] % (Auto) Eos % (Auto) Baso % (Auto) Neut # (Auto) Lymph # (Auto) [place] # (Auto) Eos # (Auto) Baso # (Auto) Neutrophils % (Manual) Band Neutrophils % Lymphocytes % (Manual) Monocytes % (Manual) Eosinophils % (Manual) Toxic Granulation Platelet Estimate Large Platelets PT INR APTT Puncture Site pCO2 pO2 HCO3 ABG pH ABG Total CO2 ABG O2 Saturation ABG Base Excess Abel Test ABG Potassium A-a O2 Difference Respiratory Index Glucose Lactate FiO2 Crit Value Called To Crit Value Called By Crit Value Read Back Blood Gas Notified Time Sodium Potassium Chloride Carbon Dioxide Anion Gap BUN Creatinine Est GFR ( Amer) Est GFR (Non-Af Amer) Random Glucose Hemoglobin A1c Lactic Acid 0.8 Calcium Phosphorus Magnesium Total Bilirubin AST ALT Alkaline Phosphatase Ammonia Total Creatine Kinase Troponin I Total Protein Albumin Globulin Albumin/Globulin Ratio Amylase Lipase Arterial Blood Potassium Urine Color Yellow Urine Clarity Hazy Urine pH 5.0 Ur Specific [place] 1.017 Urine Protein 2+ H Urine Glucose (UA) 3+ H Urine Ketones Trace Urine Blood 3+ H Urine Nitrate Negative Urine Bilirubin Negative Urine Urobilinogen Normal Ur Leukocyte Esterase 3+ H Urine WBC (Auto) 239 H Urine RBC (Auto) 10 H Ur Squamous Epith Cells < 1 Urine Bacteria Occ H Hyaline Casts 3-5 H Urine Yeast (Budding) Occ H Salicylates Urine Opiates Screen Positive H Urine Methadone Screen Negative Acetaminophen Ur Barbiturates Screen Negative Ur Phencyclidine Scrn Negative Ur Amphetamines Screen Negative U Benzodiazepines Scrn Negative U Oth Cocaine Metabols Negative U Cannabinoids Screen Positive H Alcohol, Quantitative 05/30/18 05/30/18 05/30/18 02:36 04:58 04:58 WBC RBC Hgb Hct MCV MCH MCHC RDW Plt Count MPV Neut % (Auto) Lymph % (Auto) [place] % (Auto) Eos % (Auto) Baso % (Auto) Neut # (Auto) Lymph # (Auto) [place] # (Auto) Eos # (Auto) Baso # (Auto) Neutrophils % (Manual) Band Neutrophils % Lymphocytes % (Manual) Monocytes % (Manual) Eosinophils % (Manual) Toxic Granulation Platelet Estimate Large Platelets PT INR APTT Puncture Site pCO2 pO2 HCO3 ABG pH ABG Total CO2 ABG O2 Saturation ABG Base Excess Abel Test ABG Potassium A-a O2 Difference Respiratory Index Glucose Lactate FiO2 Crit Value Called To Crit Value Called By Crit Value Read Back Blood Gas Notified Time Sodium 138 Potassium 4.3 Chloride 109 H Carbon Dioxide 15 L Anion Gap 19 BUN 48 H Creatinine 2.4 H Est GFR ( Amer) 31 Est GFR (Non-Af Amer) 26 Random Glucose 373 H Hemoglobin A1c Lactic Acid Calcium 8.3 L Phosphorus 4.2 Magnesium 1.9 Total Bilirubin 0.7 AST 42 ALT 23 Alkaline Phosphatase 56 Ammonia Total Creatine Kinase 457 H 1332 H 1297 H Troponin I 0.0840 Total Protein 5.7 L Albumin 2.7 L D Globulin 3.0 Albumin/Globulin Ratio 0.9 L Amylase 444 H Lipase 2974 H Arterial Blood Potassium Urine Color Urine Clarity Urine pH Ur Specific [place] Urine Protein Urine Glucose (UA) Urine Ketones Urine Blood Urine Nitrate Urine Bilirubin Urine Urobilinogen Ur Leukocyte Esterase Urine WBC (Auto) Urine RBC (Auto) Ur Squamous Epith Cells Urine Bacteria Hyaline Casts Urine Yeast (Budding) Salicylates Urine Opiates Screen Urine Methadone Screen Acetaminophen Ur Barbiturates Screen Ur Phencyclidine Scrn Ur Amphetamines Screen U Benzodiazepines Scrn U Oth Cocaine Metabols U Cannabinoids Screen Alcohol, Quantitative 05/30/18 05/30/18 05/30/18 04:58 04:58 04:58 WBC 18.1 H RBC 3.76 L Hgb 12.0 Hct 36.4 MCV 96.8 H MCH 32.0 H MCHC 33.1 RDW 12.6 Plt Count 174 MPV 10.8 Neut % (Auto) 90.1 H Lymph % (Auto) 5.4 L [place] % (Auto) 4.0 Eos % (Auto) 0.3 Baso % (Auto) 0.2 Neut # (Auto) 16.4 H Lymph # (Auto) 1.0 [place] # (Auto) 0.7 Eos # (Auto) 0.1 Baso # (Auto) 0.0 Neutrophils % (Manual) 92 H Band Neutrophils % 1 Lymphocytes % (Manual) 4 L Monocytes % (Manual) 3 Eosinophils % (Manual) Toxic Granulation Platelet Estimate Normal Large Platelets PT 24.4 H INR 2.2 APTT 30 Puncture Site pCO2 pO2 HCO3 ABG pH ABG Total CO2 ABG O2 Saturation ABG Base Excess Abel Test ABG Potassium A-a O2 Difference Respiratory Index Glucose Lactate FiO2 Crit Value Called To Crit Value Called By Crit Value Read Back Blood Gas Notified Time Sodium Potassium Chloride Carbon Dioxide Anion Gap BUN Creatinine Est GFR ( Amer) Est GFR (Non-Af Amer) Random Glucose Hemoglobin A1c 10.4 H Lactic Acid Calcium Phosphorus Magnesium Total Bilirubin AST ALT Alkaline Phosphatase Ammonia Total Creatine Kinase Troponin I Total Protein Albumin Globulin Albumin/Globulin Ratio Amylase Lipase Arterial Blood Potassium Urine Color Urine Clarity Urine pH Ur Specific [place] Urine Protein Urine Glucose (UA) Urine Ketones Urine Blood Urine Nitrate Urine Bilirubin Urine Urobilinogen Ur Leukocyte Esterase Urine WBC (Auto) Urine RBC (Auto) Ur Squamous Epith Cells Urine Bacteria Hyaline Casts Urine Yeast (Budding) Salicylates Urine Opiates Screen Urine Methadone Screen Acetaminophen Ur Barbiturates Screen Ur Phencyclidine Scrn Ur Amphetamines Screen U Benzodiazepines Scrn U Oth Cocaine Metabols U Cannabinoids Screen Alcohol, Quantitative
[2018-05-30 16:31] LABS: PROLACTIN 8.1 ng/mL (3.7-17.9)
[2018-05-30 16:34] LABS: FREE T4 1.41 ng/dL (0.78-2.19)
--- NOTE | 2018-05-30 16:45 | CP.PCM.HP ---
History of Present Illness - History of Present Illness History of Present Illness: Patient was brought to the emergency room because of increasing confusion. Recently patient was having a fall injury to the right shoulder region, comparing of increasing pain. Patient was prescribed Flexeril and Percocet, and he was taking the medication. In the emergency room patient was having difficult time in talking and r esponding. Patient is now more awake and responding. He doesn't remember anything what happened yesterday. But he is concerned that having increasing pain in the right shoulder region. He was supposed to be seeing the orthopedic surgeon for the right shoulder pain. Currently he is complaining of thirsty, also complaining of some weakness and muscle pain. HPI: 82-year-old male with history of diabetes, BPH, hypercholesterolemia, renal insufficiency, history of irregular heartbeat in the past, had cardioversions Now he is having no chest pain. Past medical history: Diabetes, takes insulin, BPH, high cholesterol, hyperlipidemia, hypertension, atrial fibrillation, status post cardioversion in the past also leg edema in the past Current medications reviewed Surgical history none Family history mother at the age of 90, father also in their old age. Siblings no medical history noted Patient has 3 daughters, and many great grandsons grand daughters Social history: He smoked almost a 5-10 cigarettes per day for 5 years more than 50 years ago. No alcohol. Occasionally uses marijuana. Patient lives alone Review of system: Patient is having dizziness, headache, palpitation, weakness, sweating, shortness of breath on exertion. Unable to walk less than 1 - 2 blocks. No diarrhea no nausea no fever noted No cough. Minimal sore throat noted but minimal cough with mucus noted now On examination: Vital signs stable. Chest bilateral good air entry. No rales wheezing noted, irregular heart sound, nontender abdomen, no pedal edema, VENEER JOINER alert awake oriented 3 no functional neurological deficit Generalized weakness noted EKG showing flutter rhythm Labs showing worsening renal failure Elevated hemoglobin A1c Elevated amylase, lipase and also CPK level noted. Likely dehydration possible Assessment: 82 m with a history of diabetes, BPH, hypercholesterolemia, renal insufficiency, atrial fibrillation and history of cardioversions in the past Suspected acute pancreatitis Acute rhabdomyolysis Altered mental status Likely secondary to medications including Flexeril and Percocet. Patient also having irregular heartbeat, rapid ventricular rate atrial fibrill ation. Renal, cardiology, evaluation. Neurological evaluation. DVT GI prophylaxis. Anticoagulation. IV fluids. Close monitoring. Present on Admission - Present on Admission Any Indicators Present on Admission: No History of DVT/PE: No History of Uncontrolled Diabetes: No Urinary Catheter: No Decubitus Ulcer Present: No Past Patient History - Infectious Disease Hx of Infectious Diseases: None - Past Medical History & Family History Past Medical History?: Yes - Past Social History Smoking Status: Former Smoker - CARDIAC Hx Cardia Arrhythmia: Yes (a flutter) Hx Hypercholesterolemia: Yes Hx Hypertension: Yes - PULMONARY Hx Respiratory Disorders: No - NEUROLOGICAL Hx Neurological Disorder: No - HEENT Other/Comment: wears glasses - RENAL Hx Chronic Kidney Disease: Yes - ENDOCRINE/METABOLIC Hx Diabetes Mellitus Type 2: Yes - INTEGUMENTARY Hx Dermatological Problems: No - MUSCULOSKELETAL/RHEUMATOLOGICAL Hx Falls: Yes - GASTROINTESTINAL Hx Gastrointestinal Disorders: No - GENITOURINARY/GYNECOLOGICAL Hx Prostate Problems: Yes (BPH) - PSYCHIATRIC Hx Substance Use: Yes - SURGICAL HISTORY Hx Surgeries: Yes (cannot recall all surgeries) Other/Comment: cardiac ablation - ANESTHESIA Hx Anesthesia: Yes (cannot recall what procdure he had that involved anesthesia) Hx Anesthesia Reactions: No Hx Malignant Hyperthermia: No Meds Allergies/Adverse Reactions: Allergies Allergy/AdvReac Type Severity Reaction Status Date / Time No Known Allergies Allergy Verified 05/28/18 03:21 Results - Vital Signs Recent Vital Signs: Last Vital Signs Temp 98.2 F 05/30/18 06:00 Pulse 98 H 05/30/18 14:31 Resp 25 H 05/30/18 11:01 BP 143/86 05/30/18 11:01 Pulse Ox 95 05/30/18 11:01 - Labs Result Diagrams: 05/30/18 04:58 05/30/18 04:58 Labs: Laboratory Results - last 24 hr 05/29/18 05/29/18 05/29/18 22:30 22:30 22:30 WBC 19.1 H D RBC 4.21 L Hgb 13.4 Hct 40.7 MCV 96.8 H D MCH 31.9 H MCHC 33.0 RDW 13.0 Plt Count 249 D MPV 11.1 Neut % (Auto) 90.1 H Lymph % (Auto) 5.0 L Isabella % (Auto) 4.6 Eos % (Auto) 0.2 Baso % (Auto) 0.1 Neut # (Auto) 17.2 H Lymph # (Auto) 1.0 Isabella # (Auto) 0.9 H Eos # (Auto) 0.0 Baso # (Auto) 0.0 Neutrophils % (Manual) 88 H Band Neutrophils % 1 Lymphocytes % (Manual) 7 L Monocytes % (Manual) 3 Eosinophils % (Manual) 1 Toxic Granulation Present Platelet Estimate Normal Large Platelets Present PT 27.5 H INR 2.5 APTT 31 Puncture Site pCO2 pO2 HCO3 ABG pH ABG Total CO2 ABG O2 Saturation ABG Base Excess Abel Test ABG Potassium A-a O2 Difference Respiratory Index Glucose Lactate FiO2 Crit Value Called To Crit Value Called By Crit Value Read Back Blood Gas Notified Time Sodium 132 Potassium 5.8 H Chloride 96 L Carbon Dioxide 17 L Anion Gap 25 H BUN 58 H Creatinine 3.4 H Est GFR ( Amer) 21 Est GFR (Non-Af Amer) 17 Random Glucose 602 H* D Hemoglobin A1c Lactic Acid Calcium 9.9 Phosphorus Magnesium Total Bilirubin 1.3 AST 35 ALT 18 L D Alkaline Phosphatase 71 Ammonia Total Creatine Kinase Troponin I Total Protein 7.2 Albumin 3.6 Globulin 3.6 Albumin/Globulin Ratio 1.0 Triglycerides Cholesterol LDL Cholesterol Direct HDL Cholesterol Amylase Lipase 5218 H Free T4 Prolactin Arterial Blood Potassium Urine Color Urine Clarity Urine pH Ur Specific Belk Urine Protein Urine Glucose (UA) Urine Ketones Urine Blood Urine Nitrate Urine Bilirubin Urine Urobilinogen Ur Leukocyte Esterase Urine WBC (Auto) Urine RBC (Auto) Ur Squamous Epith Cells Urine Bacteria Hyaline Casts Urine Yeast (Budding) Salicylates Urine Opiates Screen Urine Methadone Screen Acetaminophen Ur Barbiturates Screen Ur Phencyclidine Scrn Ur Amphetamines Screen U Benzodiazepines Scrn U Oth Cocaine Metabols U Cannabinoids Screen Alcohol, Quantitative < 10 05/29/18 05/29/18 05/29/18 22:30 22:38 22:46 WBC RBC Hgb Hct MCV MCH MCHC RDW Plt Count MPV Neut % (Auto) Lymph % (Auto) Isabella % (Auto) Eos % (Auto) Baso % (Auto) Neut # (Auto) Lymph # (Auto) Isabella # (Auto) Eos # (Auto) Baso # (Auto) Neutrophils % (Manual) Band Neutrophils % Lymphocytes % (Manual) Monocytes % (Manual) Eosinophils % (Manual) Toxic Granulation Platelet Estimate Large Platelets PT INR APTT Puncture Site Lr pCO2 28 L pO2 96 HCO3 19.4 L ABG pH 7.38 ABG Total CO2 17.5 L ABG O2 Saturation 99.1 H ABG Base Excess -7.1 L Abel Test Po ABG Potassium 4.7 A-a O2 Difference 19.0 Respiratory Index 0.2 Glucose 602 H* Lactate 2.1 FiO2 21.0 Crit Value Called To Dr. york Crit Value Called By Andrea iglesias Crit Value Read Back Y Blood Gas Notified Time 2251 Sodium 130.0 L Potassium Chloride 101.0 Carbon Dioxide Anion Gap BUN Creatinine Est GFR ( Amer) Est GFR (Non-Af Amer) Random Glucose Hemoglobin A1c Lactic Acid Calcium Phosphorus Magnesium Total Bilirubin AST ALT Alkaline Phosphatase Ammonia < 9 L Total Creatine Kinase Troponin I Total Protein Albumin Globulin Albumin/Globulin Ratio Triglycerides Cholesterol LDL Cholesterol Direct HDL Cholesterol Amylase Lipase Free T4 Prolactin Arterial Blood Potassium 4.7 Urine Color Urine Clarity Urine pH Ur Specific Belk Urine Protein Urine Glucose (UA) Urine Ketones Urine Blood Urine Nitrate Urine Bilirubin Urine Urobilinogen Ur Leukocyte Esterase Urine WBC (Auto) Urine RBC (Auto) Ur Squamous Epith Cells Urine Bacteria Hyaline Casts Urine Yeast (Budding) Salicylates < 1.0 Urine Opiates Screen Urine Methadone Screen Acetaminophen < 10.0 L Ur Barbiturates Screen Ur Phencyclidine Scrn Ur Amphetamines Screen U Benzodiazepines Scrn U Oth Cocaine Metabols U Cannabinoids Screen Alcohol, Quantitative 05/30/18 05/30/18 05/30/18 02:15 02:15 02:33 WBC RBC Hgb Hct MCV MCH MCHC RDW Plt Count MPV Neut % (Auto) Lymph % (Auto) Isabella % (Auto) Eos % (Auto) Baso % (Auto) Neut # (Auto) Lymph # (Auto) Isabella # (Auto) Eos # (Auto) Baso # (Auto) Neutrophils % (Manual) Band Neutrophils % Lymphocytes % (Manual) Monocytes % (Manual) Eosinophils % (Manual) Toxic Granulation Platelet Estimate Large Platelets PT INR APTT Puncture Site pCO2 pO2 HCO3 ABG pH ABG Total CO2 ABG O2 Saturation ABG Base Excess Abel Test ABG Potassium A-a O2 Difference Respiratory Index Glucose Lactate FiO2 Crit Value Called To Crit Value Called By Crit Value Read Back Blood Gas Notified Time Sodium Potassium Chloride Carbon Dioxide Anion Gap BUN Creatinine Est GFR ( Amer) Est GFR (Non-Af Amer) Random Glucose Hemoglobin A1c Lactic Acid 0.8 Calcium Phosphorus Magnesium Total Bilirubin AST ALT Alkaline Phosphatase Ammonia Total Creatine Kinase Troponin I Total Protein Albumin Globulin Albumin/Globulin Ratio Triglycerides Cholesterol LDL Cholesterol Direct HDL Cholesterol Amylase Lipase Free T4 Prolactin Arterial Blood Potassium Urine Color Yellow Urine Clarity Hazy Urine pH 5.0 Ur Specific Belk 1.017 Urine Protein 2+ H Urine Glucose (UA) 3+ H Urine Ketones Trace Urine Blood 3+ H Urine Nitrate Negative Urine Bilirubin Negative Urine Urobilinogen Normal Ur Leukocyte Esterase 3+ H Urine WBC (Auto) 239 H Urine RBC (Auto) 10 H Ur Squamous Epith Cells < 1 Urine Bacteria Occ H Hyaline Casts 3-5 H Urine Yeast (Budding) Occ H Salicylates Urine Opiates Screen Positive H Urine Methadone Screen Negative Acetaminophen Ur Barbiturates Screen Negative Ur Phencyclidine Scrn Negative Ur Amphetamines Screen Negative U Benzodiazepines Scrn Negative U Oth Cocaine Metabols Negative U Cannabinoids Screen Positive H Alcohol, Quantitative 05/30/18 05/30/18 05/30/18 02:36 04:58 04:58 WBC RBC Hgb Hct MCV MCH MCHC RDW Plt Count MPV Neut % (Auto) Lymph % (Auto) Isabella % (Auto) Eos % (Auto) Baso % (Auto) Neut # (Auto) Lymph # (Auto) Isabella # (Auto) Eos # (Auto) Baso # (Auto) Neutrophils % (Manual) Band Neutrophils % Lymphocytes % (Manual) Monocytes % (Manual) Eosinophils % (Manual) Toxic Granulation Platelet Estimate Large Platelets PT INR APTT Puncture Site pCO2 pO2 HCO3 ABG pH ABG Total CO2 ABG O2 Saturation ABG Base Excess Abel Test ABG Potassium A-a O2 Difference Respiratory Index Glucose Lactate FiO2 Crit Value Called To Crit Value Called By Crit Value Read Back Blood Gas Notified Time Sodium 138 Potassium 4.3 Chloride 109 H Carbon Dioxide 15 L Anion Gap 19 BUN 48 H Creatinine 2.4 H Est GFR ( Amer) 31 Est GFR (Non-Af Amer) 26 Random Glucose 373 H Hemoglobin A1c Lactic Acid Calcium 8.3 L Phosphorus 4.2 Magnesium 1.9 Total Bilirubin 0.7 AST 42 ALT 23 Alkaline Phosphatase 56 Ammonia Total Creatine Kinase 457 H 1332 H 1297 H Troponin I 0.0840 Total Protein 5.7 L Albumin 2.7 L D Globulin 3.0 Albumin/Globulin Ratio 0.9 L Triglycerides Cholesterol LDL Cholesterol Direct HDL Cholesterol Amylase 444 H Lipase 2974 H Free T4 Prolactin Arterial Blood Potassium Urine Color Urine Clarity Urine pH Ur Specific Belk Urine Protein Urine Glucose (UA) Urine Ketones Urine Blood Urine Nitrate Urine Bilirubin Urine Urobilinogen Ur Leukocyte Esterase Urine WBC (Auto) Urine RBC (Auto) Ur Squamous Epith Cells Urine Bacteria Hyaline Casts Urine Yeast (Budding) Salicylates Urine Opiates Screen Urine Methadone Screen Acetaminophen Ur Barbiturates Screen Ur Phencyclidine Scrn Ur Amphetamines Screen U Benzodiazepines Scrn U Oth Cocaine Metabols U Cannabinoids Screen Alcohol, Quantitative 05/30/18 05/30/18 05/30/18 04:58 04:58 04:58 WBC 18.1 H RBC 3.76 L Hgb 12.0 Hct 36.4 MCV 96.8 H MCH 32.0 H MCHC 33.1 RDW 12.6 Plt Count 174 MPV 10.8 Neut % (Auto) 90.1 H Lymph % (Auto) 5.4 L Isabella % (Auto) 4.0 Eos % (Auto) 0.3 Baso % (Auto) 0.2 Neut # (Auto) 16.4 H Lymph # (Auto) 1.0 Isabella # (Auto) 0.7 Eos # (Auto) 0.1 Baso # (Auto) 0.0 Neutrophils % (Manual) 92 H Band Neutrophils % 1 Lymphocytes % (Manual) 4 L Monocytes % (Manual) 3 Eosinophils % (Manual) Toxic Granulation Platelet Estimate Normal Large Platelets PT 24.4 H INR 2.2 APTT 30 Puncture Site pCO2 pO2 HCO3 ABG pH ABG Total CO2 ABG O2 Saturation ABG Base Excess Abel Test ABG Potassium A-a O2 Difference Respiratory Index Glucose Lactate FiO2 Crit Value Called To Crit Value Called By Crit Value Read Back Blood Gas Notified Time Sodium Potassium Chloride Carbon Dioxide Anion Gap BUN Creatinine Est GFR ( Amer) Est GFR (Non-Af Amer) Random Glucose Hemoglobin A1c 10.4 H Lactic Acid Calcium Phosphorus Magnesium Total Bilirubin AST ALT Alkaline Phosphatase Ammonia Total Creatine Kinase Troponin I Total Protein Albumin Globulin Albumin/Globulin Ratio Triglycerides Cholesterol LDL Cholesterol Direct HDL Cholesterol Amylase Lipase Free T4 Prolactin Arterial Blood Potassium Urine Color Urine Clarity Urine pH Ur Specific Belk Urine Protein Urine Glucose (UA) Urine Ketones Urine Blood Urine Nitrate Urine Bilirubin Urine Urobilinogen Ur Leukocyte Esterase Urine WBC (Auto) Urine RBC (Auto) Ur Squamous Epith Cells Urine Bacteria Hyaline Casts Urine Yeast (Budding) Salicylates Urine Opiates Screen Urine Methadone Screen Acetaminophen Ur Barbiturates Screen Ur Phencyclidine Scrn Ur Amphetamines Screen U Benzodiazepines Scrn U Oth Cocaine Metabols U Cannabinoids Screen Alcohol, Quantitative 05/30/18 05/30/18 05/30/18 15:56 15:56 15:56 WBC RBC Hgb Hct MCV MCH MCHC RDW Plt Count MPV Neut % (Auto) Lymph % (Auto) Isabella % (Auto) Eos % (Auto) Baso % (Auto) Neut # (Auto) Lymph # (Auto) Isabella # (Auto) Eos # (Auto) Baso # (Auto) Neutrophils % (Manual) Band Neutrophils % Lymphocytes % (Manual) Monocytes % (Manual) Eosinophils % (Manual) Toxic Granulation Platelet Estimate Large Platelets PT INR APTT Puncture Site pCO2 pO2 HCO3 ABG pH ABG Total CO2 ABG O2 Saturation ABG Base Excess Abel Test ABG Potassium A-a O2 Difference Respiratory Index Glucose Lactate FiO2 Crit Value Called To Crit Value Called By Crit Value Read Back Blood Gas Notified Time Sodium Potassium Chloride Carbon Dioxide Anion Gap BUN Creatinine Est GFR ( Amer) Est GFR (Non-Af Amer) Random Glucose Hemoglobin A1c Lactic Acid Calcium Phosphorus Magnesium Total Bilirubin AST ALT Alkaline Phosphatase Ammonia < 9 L Total Creatine Kinase Troponin I Total Protein Albumin Globulin Albumin/Globulin Ratio Triglycerides 109 Cholesterol 109 LDL Cholesterol Direct 71 HDL Cholesterol 20 L Amylase Lipase Free T4 1.41 Prolactin 8.1 Arterial Blood Potassium Urine Color Urine Clarity Urine pH Ur Specific Belk Urine Protein Urine Glucose (UA) Urine Ketones Urine Blood Urine Nitrate Urine Bilirubin Urine Urobilinogen Ur Leukocyte Esterase Urine WBC (Auto) Urine RBC (Auto) Ur Squamous Epith Cells Urine Bacteria Hyaline Casts Urine Yeast (Budding) Salicylates Urine Opiates Screen Urine Methadone Screen Acetaminophen Ur Barbiturates Screen Ur Phencyclidine Scrn Ur Amphetamines Screen U Benzodiazepines Scrn U Oth Cocaine Metabols U Cannabinoids Screen Alcohol, Quantitative
[2018-05-30 16:54] LABS: LIPASE 892 U/L (23-300)
--- NOTE | 2018-05-30 19:32 | CP.PCM.CON ---
History of Present Illness - History of Present Illness History of Present Illness: pt was brought in by a friend who states that pt has become increasingly confused. pt has a rotator cuff tear, and was seen yesterday in our ed for shoulder pain and was prescribed flexeril. Patient has also been taking percocet every 4 hours for pain. No evidence of trauma. Difficult to obtain any history from the patient. History Per: Family History/Exam Limitations: Clinical Condition Onset/Duration Of Symptoms: Hrs Current Symptoms Are (Timing): Still Present Usual Baseline: Alert Oriented Exacerbating Factor(s): Drug Use Use Of Anticoag/Antiplatelets: Yes Speech Is: Slurred Decreased Ability To: Stand, Walk Severity: Moderate Pain Scale Rating Of: 5 Recent travel outside of the [place]: No Additional History Per: Family Associated Symptoms: denies: Fever, Chills Past Medical History Reviewed: Historical Data, Nursing Documentation, Vital Signs Vital Signs: Last Vital Signs Temp 98.1 F 05/29/18 22:11 Pulse 144 H 05/29/18 22:11 Resp 24 05/29/18 22:11 BP 112/61 05/29/18 22:11 Pulse Ox 97 05/29/18 22:11 - Medical History PMH: Benign Prostatic Hyperplasia, Cardia Arrhythmia (a flutter), Fractures (rig ht hip 1969), HTN, Hypercholesterolemia, Chronic Kidney Disease - [facility] Procedures ATRIAL CARDIOVERSION (12/26/13) DX ULTRASOUND-HEART (12/26/13) Family History: States: No Known Family Hx - Social History Hx Alcohol Use: No Hx Substance Use: No - Immunization History Hx Tetanus Toxoid Vaccination: No Hx Influenza Vaccination: No Hx Pneumococcal Vaccination: No Review Of Systems Review Of Systems: ROS cannot be obtained secondary to pt's inabilty to answer questions. Physical Exam - Physical Exam Appears: In Acute Distress, Confused Skin: Warm, Dry Head: Normacephalic Eye(s): bilateral: Normal Inspection Oral Mucosa: Dry Tongue: Normal Appearing Lips: Other (dry) Neck: Trachea Midline, Supple Chest: Symmetrical Cardiovascular: Rhythm Regular (tachy) Respiratory: No Rales, Rhonchi, No Wheezing Gastrointestinal/Abdominal: Soft, No Tenderness Back: Normal Inspection Extremity: Normal ROM, Tenderness (right shoulder) Extremity: Right: Limited ROM To Joint (shoulder), Bilateral: Atraumatic, No Pedal Edema, Normal Color And Temperature Pulses: Left Dorsalis Pedis: Normal, Right Dorsalis Pedis: Normal Neurological/Psych: Slow To Respond With Command Gait: Unable To Assess Past Patient History - Infectious Disease Hx of Infectious Diseases: None - Past Medical History & Family History Past Medical History?: Yes - Past Social History Smoking Status: Former Smoker - CARDIAC Hx Cardia Arrhythmia: Yes (a flutter) Hx Hypercholesterolemia: Yes Hx Hypertension: Yes - PULMONARY Hx Respiratory Disorders: No - NEUROLOGICAL Hx Neurological Disorder: No - HEENT Other/Comment: wears glasses - RENAL Hx Chronic Kidney Disease: Yes - ENDOCRINE/METABOLIC Hx Diabetes Mellitus Type 2: Yes - INTEGUMENTARY Hx Dermatological Problems: No - MUSCULOSKELETAL/RHEUMATOLOGICAL Hx Falls: Yes - GASTROINTESTINAL Hx Gastrointestinal Disorders: No - GENITOURINARY/GYNECOLOGICAL Hx Prostate Problems: Yes (BPH) - PSYCHIATRIC Hx Substance Use: Yes - SURGICAL HISTORY Hx Surgeries: Yes (cannot recall all surgeries) Other/Comment: cardiac ablation - ANESTHESIA Hx Anesthesia: Yes (cannot recall what procdure he had that involved anesthesia) Hx Anesthesia Reactions: No Hx Malignant Hyperthermia: No Meds Allergies/Adverse Reactions: Allergies Allergy/AdvReac Type Severity Reaction Status Date / Time No Known Allergies Allergy Verified 05/28/18 03:21 - Medications Medications: Current Medications Amlodipine Besylate (Norvasc) 5 mg PO DAILY [facility] Last Admin: 05/30/18 17:31 Dose: 5 mg Apixaban (Eliquis) 5 mg PO Q12 JOHN Last Admin: 05/30/18 10:00 Dose: Not Given Dextrose (Dextrose 50% Inj) 0 ml IV STAT PRN; Protocol PRN Reason: Hypoglycemia Protocol Dextrose (Glutose 15) 0 gm PO ONCE PRN; Protocol PRN Reason: Hypoglycemia Protocol Famotidine (Pepcid) 20 mg PO DAILY [facility] Last Admin: 05/30/18 17:30 Dose: 20 mg Gabapentin (Neurontin) 100 mg PO BID JOHN Last Admin: 05/30/18 17:30 Dose: 100 mg Glucagon (Glucagen Diagnostic Kit) 0 mg IM STAT PRN; Protocol PRN Reason: Hypoglycemia Protocol Metronidazole (Flagyl) 500 mg in 100 mls @ 100 mls/hr IVPB STAT JOHN; Protocol Last Admin: 05/30/18 01:33 Dose: 100 mls/hr Dextrose (Dextrose 5% In Water 1000 Ml) 1,000 mls @ 0 mls/hr IV .Q0M PRN; Protocol PRN Reason: Hypoglycemia Protocol Sodium Chloride (Sodium Chloride 0.9%) 1,000 mls @ 100 mls/hr IV .Q10H JOHN Last Admin: 05/30/18 05:40 Dose: 100 mls/hr Piperacillin Sod/Tazobactam (Sod 2.25 gm/ Sodium Chloride) 50 mls @ 100 mls/hr IV Q6H JOHN; Protocol Last Admin: 05/30/18 19:27 Dose: 100 mls/hr Influenza Virus Vaccine (Fluzone Quad [id number]) 60 mcg IM .ONCE ONE Stop: 06/01/18 10:01 Insulin Human Regular (Novolin R) 0 unit SC ACHS JOHN; Protocol Last Admin: 05/30/18 17:31 Dose: 6 units Labetalol HCl (Trandate) 10 mg IV Q6H PRN PRN Reason: Systolic Blood Pressure Last Admin: 05/30/18 09:40 Dose: 10 mg Metoprolol Tartrate (Lopressor) 12.5 mg PO BID [facility] Last Admin: 05/30/18 17:32 Dose: 12.5 mg Pneumococcal Polyvalent Vaccine (Pneumovax 23 Vaccine) 0.5 ml IM .ONCE ONE Stop: 06/01/18 10:01 Rosuvastatin Calcium (Crestor) 5 mg PO HS [facility] Results - Vital Signs Recent Vital Signs: Last Vital Signs Temp 97.8 F 05/30/18 12:00 Pulse 98 H 05/30/18 19:00 Resp 18 05/30/18 19:00 BP 158/89 H 05/30/18 19:00 Pulse Ox 95 05/30/18 14:00 - Labs Result Diagrams: 05/30/18 04:58 05/30/18 04:58 Labs: Laboratory Results - last 24 hr 05/29/18 05/29/18 05/29/18 22:30 22:30 22:30 WBC 19.1 H D RBC 4.21 L Hgb 13.4 Hct 40.7 MCV 96.8 H D MCH 31.9 H MCHC 33.0 RDW 13.0 Plt Count 249 D MPV 11.1 Neut % (Auto) 90.1 H Lymph % (Auto) 5.0 L [place] % (Auto) 4.6 Eos % (Auto) 0.2 Baso % (Auto) 0.1 Neut # (Auto) 17.2 H Lymph # (Auto) 1.0 [place] # (Auto) 0.9 H Eos # (Auto) 0.0 Baso # (Auto) 0.0 Neutrophils % (Manual) 88 H Band Neutrophils % 1 Lymphocytes % (Manual) 7 L Monocytes % (Manual) 3 Eosinophils % (Manual) 1 Toxic Granulation Present Platelet Estimate Normal Large Platelets Present PT 27.5 H INR 2.5 APTT 31 Puncture Site pCO2 pO2 HCO3 ABG pH ABG Total CO2 ABG O2 Saturation ABG Base Excess Abel Test ABG Potassium A-a O2 Difference Respiratory Index Glucose Lactate FiO2 Crit Value Called To Crit Value Called By Crit Value Read Back Blood Gas Notified Time Sodium 132 Potassium 5.8 H Chloride 96 L Carbon Dioxide 17 L Anion Gap 25 H BUN 58 H Creatinine 3.4 H Est GFR ( Amer) 21 Est GFR (Non-Af Amer) 17 Random Glucose 602 H* D Hemoglobin A1c Lactic Acid Calcium 9.9 Phosphorus Magnesium Total Bilirubin 1.3 AST 35 ALT 18 L D Alkaline Phosphatase 71 Ammonia Total Creatine Kinase Troponin I Total Protein 7.2 Albumin 3.6 Globulin 3.6 Albumin/Globulin Ratio 1.0 Triglycerides Cholesterol LDL Cholesterol Direct HDL Cholesterol Amylase Lipase 5218 H Procalcitonin Free T4 TSH 3rd Generation Prolactin Arterial Blood Potassium Urine Color Urine Clarity Urine pH Ur Specific [place] Urine Protein Urine Glucose (UA) Urine Ketones Urine Blood Urine Nitrate Urine Bilirubin Urine Urobilinogen Ur Leukocyte Esterase Urine WBC (Auto) Urine RBC (Auto) Ur Squamous Epith Cells Urine Bacteria Hyaline Casts Urine Yeast (Budding) Salicylates Urine Opiates Screen Urine Methadone Screen Acetaminophen Ur Barbiturates Screen Ur Phencyclidine Scrn Ur Amphetamines Screen U Benzodiazepines Scrn U Oth Cocaine Metabols U Cannabinoids Screen Alcohol, Quantitative < 10 05/29/18 05/29/18 05/29/18 22:30 22:38 22:46 WBC RBC Hgb Hct MCV MCH MCHC RDW Plt Count MPV Neut % (Auto) Lymph % (Auto) [place] % (Auto) Eos % (Auto) Baso % (Auto) Neut # (Auto) Lymph # (Auto) [place] # (Auto) Eos # (Auto) Baso # (Auto) Neutrophils % (Manual) Band Neutrophils % Lymphocytes % (Manual) Monocytes % (Manual) Eosinophils % (Manual) Toxic Granulation Platelet Estimate Large Platelets PT INR APTT Puncture Site Lr pCO2 28 L pO2 96 HCO3 19.4 L ABG pH 7.38 ABG Total CO2 17.5 L ABG O2 Saturation 99.1 H ABG Base Excess -7.1 L Abel Test Po ABG Potassium 4.7 A-a O2 Difference 19.0 Respiratory Index 0.2 Glucose 602 H* Lactate 2.1 FiO2 21.0 Crit Value Called To Dr. york Crit Value Called By Andrea iglesias Crit Value Read Back Y Blood Gas Notified Time 2251 Sodium 130.0 L Potassium Chloride 101.0 Carbon Dioxide Anion Gap BUN Creatinine Est GFR ( Amer) Est GFR (Non-Af Amer) Random Glucose Hemoglobin A1c Lactic Acid Calcium Phosphorus Magnesium Total Bilirubin AST ALT Alkaline Phosphatase Ammonia < 9 L Total Creatine Kinase Troponin I Total Protein Albumin Globulin Albumin/Globulin Ratio Triglycerides Cholesterol LDL Cholesterol Direct HDL Cholesterol Amylase Lipase Procalcitonin Free T4 TSH 3rd Generation Prolactin Arterial Blood Potassium 4.7 Urine Color Urine Clarity Urine pH Ur Specific [place] Urine Protein Urine Glucose (UA) Urine Ketones Urine Blood Urine Nitrate Urine Bilirubin Urine Urobilinogen Ur Leukocyte Esterase Urine WBC (Auto) Urine RBC (Auto) Ur Squamous Epith Cells Urine Bacteria Hyaline Casts Urine Yeast (Budding) Salicylates < 1.0 Urine Opiates Screen Urine Methadone Screen Acetaminophen < 10.0 L Ur Barbiturates Screen Ur Phencyclidine Scrn Ur Amphetamines Screen U Benzodiazepines Scrn U Oth Cocaine Metabols U Cannabinoids Screen Alcohol, Quantitative 05/30/18 05/30/18 05/30/18 02:15 02:15 02:33 WBC RBC Hgb Hct MCV MCH MCHC RDW Plt Count MPV Neut % (Auto) Lymph % (Auto) [place] % (Auto) Eos % (Auto) Baso % (Auto) Neut # (Auto) Lymph # (Auto) [place] # (Auto) Eos # (Auto) Baso # (Auto) Neutrophils % (Manual) Band Neutrophils % Lymphocytes % (Manual) Monocytes % (Manual) Eosinophils % (Manual) Toxic Granulation Platelet Estimate Large Platelets PT INR APTT Puncture Site pCO2 pO2 HCO3 ABG pH ABG Total CO2 ABG O2 Saturation ABG Base Excess Abel Test ABG Potassium A-a O2 Difference Respiratory Index Glucose Lactate FiO2 Crit Value Called To Crit Value Called By Crit Value Read Back Blood Gas Notified Time Sodium Potassium Chloride Carbon Dioxide Anion Gap BUN Creatinine Est GFR ( Amer) Est GFR (Non-Af Amer) Random Glucose Hemoglobin A1c Lactic Acid 0.8 Calcium Phosphorus Magnesium Total Bilirubin AST ALT Alkaline Phosphatase Ammonia Total Creatine Kinase Troponin I Total Protein Albumin Globulin Albumin/Globulin Ratio Triglycerides Cholesterol LDL Cholesterol Direct HDL Cholesterol Amylase Lipase Procalcitonin Free T4 TSH 3rd Generation Prolactin Arterial Blood Potassium Urine Color Yellow Urine Clarity Hazy Urine pH 5.0 Ur Specific [place] 1.017 Urine Protein 2+ H Urine Glucose (UA) 3+ H Urine Ketones Trace Urine Blood 3+ H Urine Nitrate Negative Urine Bilirubin Negative Urine Urobilinogen Normal Ur Leukocyte Esterase 3+ H Urine WBC (Auto) 239 H Urine RBC (Auto) 10 H Ur Squamous Epith Cells < 1 Urine Bacteria Occ H Hyaline Casts 3-5 H Urine Yeast (Budding) Occ H Salicylates Urine Opiates Screen Positive H Urine Methadone Screen Negative Acetaminophen Ur Barbiturates Screen Negative Ur Phencyclidine Scrn Negative Ur Amphetamines Screen Negative U Benzodiazepines Scrn Negative U Oth Cocaine Metabols Negative U Cannabinoids Screen Positive H Alcohol, Quantitative 05/30/18 05/30/18 05/30/18 02:36 04:58 04:58 WBC RBC Hgb Hct MCV MCH MCHC RDW Plt Count MPV Neut % (Auto) Lymph % (Auto) [place] % (Auto) Eos % (Auto) Baso % (Auto) Neut # (Auto) Lymph # (Auto) [place] # (Auto) Eos # (Auto) Baso # (Auto) Neutrophils % (Manual) Band Neutrophils % Lymphocytes % (Manual) Monocytes % (Manual) Eosinophils % (Manual) Toxic Granulation Platelet Estimate Large Platelets PT INR APTT Puncture Site pCO2 pO2 HCO3 ABG pH ABG Total CO2 ABG O2 Saturation ABG Base Excess Abel Test ABG Potassium A-a O2 Difference Respiratory Index Glucose Lactate FiO2 Crit Value Called To Crit Value Called By Crit Value Read Back Blood Gas Notified Time Sodium 138 Potassium 4.3 Chloride 109 H Carbon Dioxide 15 L Anion Gap 19 BUN 48 H Creatinine 2.4 H Est GFR ( Amer) 31 Est GFR (Non-Af Amer) 26 Random Glucose 373 H Hemoglobin A1c Lactic Acid Calcium 8.3 L Phosphorus 4.2 Magnesium 1.9 Total Bilirubin 0.7 AST 42 ALT 23 Alkaline Phosphatase 56 Ammonia Total Creatine Kinase 457 H 1332 H 1297 H Troponin I 0.0840 Total Protein 5.7 L Albumin 2.7 L D Globulin 3.0 Albumin/Globulin Ratio 0.9 L Triglycerides Cholesterol LDL Cholesterol Direct HDL Cholesterol Amylase 444 H Lipase 2974 H Procalcitonin Free T4 TSH 3rd Generation Prolactin Arterial Blood Potassium Urine Color Urine Clarity Urine pH Ur Specific [place] Urine Protein Urine Glucose (UA) Urine Ketones Urine Blood Urine Nitrate Urine Bilirubin Urine Urobilinogen Ur Leukocyte Esterase Urine WBC (Auto) Urine RBC (Auto) Ur Squamous Epith Cells Urine Bacteria Hyaline Casts Urine Yeast (Budding) Salicylates Urine Opiates Screen Urine Methadone Screen Acetaminophen Ur Barbiturates Screen Ur Phencyclidine Scrn Ur Amphetamines Screen U Benzodiazepines Scrn U Oth Cocaine Metabols U Cannabinoids Screen Alcohol, Quantitative 05/30/18 05/30/18 05/30/18 04:58 04:58 04:58 WBC 18.1 H RBC 3.76 L Hgb 12.0 Hct 36.4 MCV 96.8 H MCH 32.0 H MCHC 33.1 RDW 12.6 Plt Count 174 MPV 10.8 Neut % (Auto) 90.1 H Lymph % (Auto) 5.4 L [place] % (Auto) 4.0 Eos % (Auto) 0.3 Baso % (Auto) 0.2 Neut # (Auto) 16.4 H Lymph # (Auto) 1.0 [place] # (Auto) 0.7 Eos # (Auto) 0.1 Baso # (Auto) 0.0 Neutrophils % (Manual) 92 H Band Neutrophils % 1 Lymphocytes % (Manual) 4 L Monocytes % (Manual) 3 Eosinophils % (Manual) Toxic Granulation Platelet Estimate Normal Large Platelets PT 24.4 H INR 2.2 APTT 30 Puncture Site pCO2 pO2 HCO3 ABG pH ABG Total CO2 ABG O2 Saturation ABG Base Excess Abel Test ABG Potassium A-a O2 Difference Respiratory Index Glucose Lactate FiO2 Crit Value Called To Crit Value Called By Crit Value Read Back Blood Gas Notified Time Sodium Potassium Chloride Carbon Dioxide Anion Gap BUN Creatinine Est GFR ( Amer) Est GFR (Non-Af Amer) Random Glucose Hemoglobin A1c 10.4 H Lactic Acid Calcium Phosphorus Magnesium Total Bilirubin AST ALT Alkaline Phosphatase Ammonia Total Creatine Kinase Troponin I Total Protein Albumin Globulin Albumin/Globulin Ratio Triglycerides Cholesterol LDL Cholesterol Direct HDL Cholesterol Amylase Lipase Procalcitonin Free T4 TSH 3rd Generation Prolactin Arterial Blood Potassium Urine Color Urine Clarity Urine pH Ur Specific [place] Urine Protein Urine Glucose (UA) Urine Ketones Urine Blood Urine Nitrate Urine Bilirubin Urine Urobilinogen Ur Leukocyte Esterase Urine WBC (Auto) Urine RBC (Auto) Ur Squamous Epith Cells Urine Bacteria Hyaline Casts Urine Yeast (Budding) Salicylates Urine Opiates Screen Urine Methadone Screen Acetaminophen Ur Barbiturates Screen Ur Phencyclidine Scrn Ur Amphetamines Screen U Benzodiazepines Scrn U Oth Cocaine Metabols U Cannabinoids Screen Alcohol, Quantitative 05/30/18 05/30/18 05/30/18 04:58 15:56 15:56 WBC RBC Hgb Hct MCV MCH MCHC RDW Plt Count MPV Neut % (Auto) Lymph % (Auto) [place] % (Auto) Eos % (Auto) Baso % (Auto) Neut # (Auto) Lymph # (Auto) [place] # (Auto) Eos # (Auto) Baso # (Auto) Neutrophils % (Manual) Band Neutrophils % Lymphocytes % (Manual) Monocytes % (Manual) Eosinophils % (Manual) Toxic Granulation Platelet Estimate Large Platelets PT INR APTT Puncture Site pCO2 pO2 HCO3 ABG pH ABG Total CO2 ABG O2 Saturation ABG Base Excess Abel Test ABG Potassium A-a O2 Difference Respiratory Index Glucose Lactate FiO2 Crit Value Called To Crit Value Called By Crit Value Read Back Blood Gas Notified Time Sodium Potassium Chloride Carbon Dioxide Anion Gap BUN Creatinine Est GFR ( Amer) Est GFR (Non-Af Amer) Random Glucose Hemoglobin A1c Lactic Acid Calcium Phosphorus Magnesium Total Bilirubin AST ALT Alkaline Phosphatase Ammonia < 9 L Total Creatine Kinase Troponin I Total Protein Albumin Globulin Albumin/Globulin Ratio Triglycerides 109 Cholesterol 109 LDL Cholesterol Direct 71 HDL Cholesterol 20 L Amylase Lipase Procalcitonin 0.46 Free T4 TSH 3rd Generation Prolactin 8.1 Arterial Blood Potassium Urine Color Urine Clarity Urine pH Ur Specific [place] Urine Protein Urine Glucose (UA) Urine Ketones Urine Blood Urine Nitrate Urine Bilirubin Urine Urobilinogen Ur Leukocyte Esterase Urine WBC (Auto) Urine RBC (Auto) Ur Squamous Epith Cells Urine Bacteria Hyaline Casts Urine Yeast (Budding) Salicylates Urine Opiates Screen Urine Methadone Screen Acetaminophen Ur Barbiturates Screen Ur Phencyclidine Scrn Ur Amphetamines Screen U Benzodiazepines Scrn U Oth Cocaine Metabols U Cannabinoids Screen Alcohol, Quantitative 05/30/18 05/30/18 15:56 16:47 WBC RBC Hgb Hct MCV MCH MCHC RDW Plt Count MPV Neut % (Auto) Lymph % (Auto) [place] % (Auto) Eos % (Auto) Baso % (Auto) Neut # (Auto) Lymph # (Auto) [place] # (Auto) Eos # (Auto) Baso # (Auto) Neutrophils % (Manual) Band Neutrophils % Lymphocytes % (Manual) Monocytes % (Manual) Eosinophils % (Manual) Toxic Granulation Platelet Estimate Large Platelets PT INR APTT Puncture Site pCO2 pO2 HCO3 ABG pH ABG Total CO2 ABG O2 Saturation ABG Base Excess Abel Test ABG Potassium A-a O2 Difference Respiratory Index Glucose Lactate FiO2 Crit Value Called To Crit Value Called By Crit Value Read Back Blood Gas Notified Time Sodium Potassium Chloride Carbon Dioxide Anion Gap BUN Creatinine Est GFR ( Amer) Est GFR (Non-Af Amer) Random Glucose Hemoglobin A1c Lactic Acid Calcium Phosphorus Magnesium Total Bilirubin AST ALT Alkaline Phosphatase Ammonia Total Creatine Kinase 1004 H Troponin I Total Protein Albumin Globulin Albumin/Globulin Ratio Triglycerides Cholesterol LDL Cholesterol Direct HDL Cholesterol Amylase Lipase 892 H Procalcitonin Free T4 1.41 TSH 3rd Generation 0.37 L Prolactin Arterial Blood Potassium Urine Color Urine Clarity Urine pH Ur Specific [place] Urine Protein Urine Glucose (UA) Urine Ketones Urine Blood Urine Nitrate Urine Bilirubin Urine Urobilinogen Ur Leukocyte Esterase Urine WBC (Auto) Urine RBC (Auto) Ur Squamous Epith Cells Urine Bacteria Hyaline Casts Urine Yeast (Budding) Salicylates Urine Opiates Screen Urine Methadone Screen Acetaminophen Ur Barbiturates Screen Ur Phencyclidine Scrn Ur Amphetamines Screen U Benzodiazepines Scrn U Oth Cocaine Metabols U Cannabinoids Screen Alcohol, Quantitative Assessment & Plan - Assessment and Plan (Free Text) Assessment: Altered Mental status Hx of A Flutter s/p cardioversion DM 2 HTN Hyperlipidemia Will continue to monitor
--- NOTE | 2018-05-31 00:25 | CON ---
DATE: 05/30/2018 TIME OF EVALUATION: 02:45 p.m. REASON FOR CONSULTATION: Change in mental status. CHIEF COMPLAINT: The patient was brought into [facility] ([facility]) with a history of fall at home being found to have rotator cuff injury. The patient found to have change in mental status. From neurologic point of view, I was called in to evaluate him for further management. HISTORY OF PRESENTING ILLNESS: Mr. Jagdish Robison is an 83-year-old right-handed pleasant male brought into [facility] ([facility]) with a history of fall at home. He could not recall how did it happen. From the fall, he seems to be lost his consciousness as well. During the workup in the emergency room, the patient was found to have rhabdomyolysis and given IV fluids. From neurological point of view, I was called in to evaluate him for his change in mental status. No history of witnessed tonic-clonic activities, no history of bowel or bladder incontinence at the scene. No similar episodes happened in the past as per the patient. PAST MEDICAL HISTORY: Hypertension, [id number] diabetes mellitus, neuropathy and dyslipidemia. PERSONAL HISTORY: Denies smoking or alcohol use. ALLERGIES: NO KNOWN ALLERGIES. REVIEW OF SYSTEMS: A 12-point system being reviewed from neuro, change in mental status. MEDICATIONS: Crestor, IV fluids, Eliquis, Flagyl, glucagon, Lopressor, Neurontin, Norvasc, Pepcid, Tazobactam and labetalol. PHYSICAL EXAMINATION: VITAL SIGNS: Blood pressure 143/86, mean arterial pressure of 96, respiratory rate 22-25, temperature afebrile with a pulse rate 98 to 110 tachy. NECK: Supple. No carotid bruit. No meningismus. No Kernig sign or Brudzinski sign noted. HEART: Sounds are tachycardic. EXTREMITIES: No edema in legs. Right arm is under sling. NEUROLOGIC: The patient is awake. He knows he is in the hospital. He knows the year. He knows the President. Speech is fluent. No confabulation. No visual or auditory hallucination. No sign of depression. He follows one-step command. No right and left confusion. Cranial nerve examination, visual field intact. Pupils reactive to light. Extraocular movement normal, no nystagmus. No facial sensory deficit. No facial asymmetry. Hearing is normal. Tongue is midline. Good gag. Motor examination, outstretched hand with eyes closed, no drift noted. Power is symmetric on either side. Right arm is not examined because of the rotator cuff injury. Deep tendon reflexes biceps, brachialis, triceps 1+ on either side. Both knees are absent. Both ankles are absent. Plantars are upgoing on his left side. Sensory examination responded to pain symmetrically on both sides. Gait deferred at this time. WORKUP: CT of the head, no acute pathologies noted. Blood workup; WBC 18.1, hemoglobin 12.2, hematocrit 36.4, platelet 174. Bands are 1. PT , INR 2.2, PTT 30. ABG pH is 7.38, pCO2 28, PO2 96, bicarbonate 17.5 with oxygen saturation of 99.1. Sodium 138, potassium 4.3, chloride 109, bicarbonate 15, BUN 48, creatinine 2.4, glucose 373, and hemoglobin A1c 10.4, ammonia 9, CPK 1297, amylase 444, lipase 2974. Urine shows 2+ proteinuria, 3+ glycosuria hematuria 3, wbc 239. Toxicology shows urine positive opiates and cannabinoids. CONCLUSION: Mr. Jagdish Robison as per neurological examination presenting with change in mental status which is probably secondary to his underlying uncontrolled diabetes mellitus which superimposed with rhabdomyolysis. From neurological point of view, he seems to be improved from the previous examination as per the physician's documentation. RECOMMENDATIONS: 1. Continue hydration. 2. Repeat CPK and myoglobin in the urine. 3. Do EEG at the bedside to rule out any paroxysmal activities. 4. When medically stable, the patient should have a MRI of the brain the reason for the fall, which is not clear yet. 5. No medication is recommended from neurological point of view at this time. Continue the present management. The patient will be followed closely with you. Hernán Molina MD
[2018-05-31] MEDS: Piperacillin/Tazobact 2.25 GM in Sodium Chloride 0.9% 50 ML IV SCH ×4 (01:00→19:26)
[2018-05-31] MEDS: Sodium Chloride 0.9% 1,000 ML IV SCH ×3 (01:00→11:00)
[2018-05-31] MEDS: Labetalol 5mg/ml (4ml) IV PRN (02:13)
[2018-05-31] MEDS ORDERED: Labetalol 5mg/ml (4ml) IVP STA (04:51)
[2018-05-31 05:44] LABS: BASO % 0.2 % (0.0-2.0); EOS # 0.1 K/uL (0.0-0.7); EOS % 0.9 % (0.0-4.0); LYMPH # 1.1 K/uL (1.0-4.3); LYMPH % 6.6 % (20.0-40.0); MEAN CELL VOLUME 94.4 fL (80.0-94.0); MEAN CORPUSCULAR HEMOGLOBIN 32.5 pg (27.0-31.0); MEAN CORPUSCULAR HGB CONC 34.4 g/dL (33.0-37.0); MEAN PLATELET VOLUME 10.9 fL (7.2-11.7); MONO # 0.7 K/uL (0.0-0.8); MONO % 4.6 % (0.0-10.0); NEUT # 14.2 K/uL (1.8-7.0); NEUT % 87.7 % (50.0-75.0); PLATELET COUNT 206 K/uL (130-400); RBC 3.99 Mil/uL (4.40-5.90); RED CELL DISTRIBUTION WIDTH 12.9 % (11.5-14.5); WHITE BLOOD COUNT 16.2 K/uL (4.8-10.8)
[2018-05-31 05:47] LABS: PROTHROMBIN TIME 21.8 SECONDS (9.7-12.2)
[2018-05-31 06:03] LABS: ALB/GLOB RATIO 0.9 (1.0-2.1); CALCIUM 9.7 mg/dl (8.6-10.4); CK-MB 1.88 ng/mL (0.0-3.38)
[2018-05-31] MEDS: (Novolin R) Insulin Human Regular 100 units/ml vial SC SCH ×4 (08:15→21:49)
--- NOTE | 2018-05-31 08:24 | CP.CCUPN ---
CCU Subjective - Physician Review Events Since Last Encounter (Free Text): 05/31/18 11:52 no events over night Subjective (Free Text): 05/31/18 11:53 Patient was seen and examined this morning. He is sitting up in a chair at bedside in no acute distress. He denies any acute complaints. He is alert and oriented to person and place. He is eating without difficulty. Critical Care Time Spent (in minutes): 35 CCU Objective - Vital Signs / Intake & Output Vital Signs (Last 4 hours): Vital Signs Temp Pulse Resp BP Pulse Ox 05/31/18 06:03 91 H 19 138/77 94 L 05/31/18 06:00 98.4 F 91 H 16 97 05/31/18 05:50 95 H 19 129/87 96 05/31/18 05:14 90 12 139/77 97 05/31/18 05:01 100 H 17 172/98 H 05/31/18 05:00 106 H 20 05/31/18 04:47 101 H 21 182/96 H 05/31/18 04:46 103 H 16 186/96 H Intake and Output (Last 8hrs): Intake & Output 05/30/18 05/31/18 05/31/18 22:59 06:59 14:59 Intake Total 1540 1040 Output Total 2300 Balance 1540 -1260 Weight 222 lb Intake: Intake, IV Amount 800 800 Left Antecubital 800 800 Oral 740 240 Output: Urine 2300 Condom 2300 Other: # Voids Condom 400 - Physical Exam Head: Positive for: Atraumatic, Normocephalic Pupils: Positive for: PERRL Extroacular Muscles: Positive for: EOMI Conjunctiva: Positive for: Normal Mouth: Positive for: Moist Mucous Membranes Neck: Positive for: Normal Range of Motion Respiratory/Chest: Positive for: Clear to Auscultation. Negative for: Respiratory Distress, Accessory Muscle Use Cardiovascular: Positive for: Normal S1, S2, Irregular Rhythm Abdomen: Positive for: Normal Bowel Sounds. Negative for: Tenderness, Diste ntion, Rebound, Guarding Genitourinary Male: Positive for: Other ([place] condom catheter in place) Upper Extremity: Positive for: Normal Inspection, NORMAL PULSES, Tenderness (R shoulder), Neurovascularly Intact, Capillary Refill < 2s. Negative for: Swelling, Erythema Lower Extremity: Positive for: Normal Inspection, NORMAL PULSES, Neurovascularly Intact, Capillary Refill < 2 s. Negative for: Edema Neurological: Positive for: GCS=15 Skin: Positive for: Warm, Dry, Normal Color Psychiatric: Positive for: Alert, Other (oriented to person and place) - Medications Active Medications: Active Medications Generic Name Dose Route Start Last Admin Trade Name Freq PRN Reason Stop Dose Admin Amlodipine Besylate 5 mg 05/30/18 10:00 05/30/18 17:31 Norvasc PO 5 mg DAILY JOHN Administration Apixaban 5 mg 05/30/18 10:00 05/30/18 21:20 Eliquis PO 5 mg Q12 JOHN Administration Dextrose 0 ml 05/30/18 04:09 Dextrose 50% Inj IV STAT PRN Hypoglycemia Protocol Protocol Dextrose 0 gm 05/30/18 04:09 Glutose 15 PO ONCE PRN Hypoglycemia Protocol Protocol Famotidine 20 mg 05/30/18 10:00 05/30/18 17:30 Pepcid PO 20 mg DAILY JOHN Administration Gabapentin 100 mg 05/30/18 10:00 05/30/18 17:30 Neurontin PO 100 mg BID JOHN Administration Glucagon 0 mg 05/30/18 04:09 Glucagen Diagnostic Kit IM STAT PRN Hypoglycemia Protocol Protocol Metronidazole 500 mg in 100 mls @ 100 mls/hr 05/30/18 01:00 05/30/18 01:33 Flagyl IVPB 100 mls/hr STAT JOHN Administration Protocol Dextrose 1,000 mls @ 0 mls/hr 05/30/18 04:09 Dextrose 5% In Water 1000 Ml IV .Q0M PRN Hypoglycemia Protocol Protocol Per Protocol Sodium Chloride 1,000 mls @ 100 mls/hr 05/30/18 04:15 05/31/18 01:00 Sodium Chloride 0.9% IV Not Given .Q10H JOHN Piperacillin Sod/Tazobactam 50 mls @ 100 mls/hr 05/30/18 13:00 05/31/18 06:30 Sod 2.25 gm/ Sodium Chloride IV 100 mls/hr Q6H JOHN Administration Protocol Influenza Virus Vaccine 60 mcg 06/01/18 10:00 Fluzone Quad [id number] IM 06/01/18 10:01 .ONCE ONE Insulin Human Regular 0 unit 05/30/18 07:30 05/31/18 08:15 Novolin R SC 3 units ACHS JOHN Administration Protocol Labetalol HCl 10 mg 05/30/18 09:07 05/31/18 02:13 Trandate IV 10 mg Q6H PRN Administration Systolic Blood Pressure Metoprolol Tartrate 12.5 mg 05/30/18 10:00 05/30/18 17:32 Lopressor PO 12.5 mg BID JOHN Administration Pneumococcal Polyvalent Vaccine 0.5 ml 06/01/18 10:00 Pneumovax 23 Vaccine IM 06/01/18 10:01 .ONCE ONE Rosuvastatin Calcium 5 mg 05/30/18 22:00 05/30/18 21:20 Crestor PO 5 mg HS [facility] Administration - Patient Studies Lab Studies: Microbiology Studies 05/29/18 07:34 Blood Culture - Preliminary Blood Gram Positive Cocci Gram Stain - Final 05/29/18 07:34 Blood Culture - Preliminary Blood Gram Positive Cocci Gram Stain - Final Lab Studies 05/31/18 05/31/18 05/31/18 Range/Units 05:36 05:35 05:35 WBC 16.2 H (4.8-10.8) K/uL RBC 3.99 L (4.40-5.90) Mil/uL Hgb 13.0 (12.0-18.0) g/dL Hct 37.7 (35.0-51.0) % MCV 94.4 H D (80.0-94.0) fL MCH 32.5 H (27.0-31.0) pg MCHC 34.4 (33.0-37.0) g/dL RDW 12.9 (11.5-14.5) % Plt Count 206 (130-400) K/uL MPV 10.9 (7.2-11.7) fL Neut % (Auto) 87.7 H (50.0-75.0) % Lymph % (Auto) 6.6 L (20.0-40.0) % [place] % (Auto) 4.6 (0.0-10.0) % Eos % (Auto) 0.9 (0.0-4.0) % Baso % (Auto) 0.2 (0.0-2.0) % Neut # (Auto) 14.2 H (1.8-7.0) K/uL Lymph # (Auto) 1.1 (1.0-4.3) K/uL [place] # (Auto) 0.7 (0.0-0.8) K/uL Eos # (Auto) 0.1 (0.0-0.7) K/uL Baso # (Auto) 0.0 (0.0-0.2) K/uL PT 21.8 H (9.7-12.2) SECONDS INR 2.0 APTT 34 (21-34) SECONDS Sodium 138 (132-148) mmol/L Potassium 4.0 (3.6-5.2) mmol/L Chloride 107 (98-107) mmol/L Carbon Dioxide 20 L (22-30) mmol/L Anion Gap 14 (10-20) BUN 37 H (9-20) mg/dL Creatinine 1.4 (0.8-1.5) mg/dL Est GFR ( Amer) 59 Est GFR (Non-Af Amer) 48 Random Glucose 223 H (75-110) mg/dL Hemoglobin A1c (4.2-6.5) % Calcium 9.7 (8.6-10.4) mg/dl Phosphorus 3.3 (2.5-4.5) mg/dL Magnesium 2.0 (1.6-2.3) mg/dL Total Bilirubin 0.9 (0.2-1.3) mg/dL AST 70 H D (17-59) U/L ALT 35 (21-72) U/L Alkaline Phosphatase 83 (38-126) U/L Ammonia (9-33) umol/L Total Creatine Kinase 685 H (55-170) U/L CK-MB (Mass) 1.88 (0.0-3.38) ng/mL Total Protein 6.6 (6.3-8.3) g/dL Albumin 3.0 L (3.5-5.0) g/dL Globulin 3.5 (2.2-3.9) gm/dL Albumin/Globulin Ratio 0.9 L (1.0-2.1) Triglycerides (0-149) mg/dL Cholesterol (0-199) mg/dL LDL Cholesterol Direct (0-129) mg/dL HDL Cholesterol (30-70) mg/dL Lipase 297 (23-300) U/L Procalcitonin (0.19-0.49) NG/ML Free T4 (0.78-2.19) ng/dL TSH 3rd Generation (0.46-4.68) mIU/L Prolactin (3.7-17.9) ng/mL 05/30/18 05/30/18 05/30/18 Range/Units 16:47 15:56 15:56 WBC (4.8-10.8) K/uL RBC (4.40-5.90) Mil/uL Hgb (12.0-18.0) g/dL Hct (35.0-51.0) % MCV (80.0-94.0) fL MCH (27.0-31.0) pg MCHC (33.0-37.0) g/dL RDW (11.5-14.5) % Plt Count (130-400) K/uL MPV (7.2-11.7) fL Neut % (Auto) (50.0-75.0) % Lymph % (Auto) (20.0-40.0) % [place] % (Auto) (0.0-10.0) % Eos % (Auto) (0.0-4.0) % Baso % (Auto) (0.0-2.0) % Neut # (Auto) (1.8-7.0) K/uL Lymph # (Auto) (1.0-4.3) K/uL [place] # (Auto) (0.0-0.8) K/uL Eos # (Auto) (0.0-0.7) K/uL Baso # (Auto) (0.0-0.2) K/uL PT (9.7-12.2) SECONDS INR APTT (21-34) SECONDS Sodium (132-148) mmol/L Potassium (3.6-5.2) mmol/L Chloride (98-107) mmol/L Carbon Dioxide (22-30) mmol/L Anion Gap (10-20) BUN (9-20) mg/dL Creatinine (0.8-1.5) mg/dL Est GFR ( Amer) Est GFR (Non-Af Amer) Random Glucose (75-110) mg/dL Hemoglobin A1c (4.2-6.5) % Calcium (8.6-10.4) mg/dl Phosphorus (2.5-4.5) mg/dL Magnesium (1.6-2.3) mg/dL Total Bilirubin (0.2-1.3) mg/dL AST (17-59) U/L ALT (21-72) U/L Alkaline Phosphatase (38-126) U/L Ammonia < 9 L (9-33) umol/L Total Creatine Kinase 1004 H (55-170) U/L CK-MB (Mass) (0.0-3.38) ng/mL Total Protein (6.3-8.3) g/dL Albumin (3.5-5.0) g/dL Globulin (2.2-3.9) gm/dL Albumin/Globulin Ratio (1.0-2.1) Triglycerides (0-149) mg/dL Cholesterol (0-199) mg/dL LDL Cholesterol Direct (0-129) mg/dL HDL Cholesterol (30-70) mg/dL Lipase 892 H (23-300) U/L Procalcitonin (0.19-0.49) NG/ML Free T4 1.41 (0.78-2.19) ng/dL TSH 3rd Generation 0.37 L (0.46-4.68) mIU/L Prolactin (3.7-17.9) ng/mL 05/30/18 05/30/18 05/30/18 Range/Units 15:56 04:58 04:58 WBC (4.8-10.8) K/uL RBC (4.40-5.90) Mil/uL Hgb (12.0-18.0) g/dL Hct (35.0-51.0) % MCV (80.0-94.0) fL MCH (27.0-31.0) pg MCHC (33.0-37.0) g/dL RDW (11.5-14.5) % Plt Count (130-400) K/uL MPV (7.2-11.7) fL Neut % (Auto) (50.0-75.0) % Lymph % (Auto) (20.0-40.0) % [place] % (Auto) (0.0-10.0) % Eos % (Auto) (0.0-4.0) % Baso % (Auto) (0.0-2.0) % Neut # (Auto) (1.8-7.0) K/uL Lymph # (Auto) (1.0-4.3) K/uL [place] # (Auto) (0.0-0.8) K/uL Eos # (Auto) (0.0-0.7) K/uL Baso # (Auto) (0.0-0.2) K/uL PT (9.7-12.2) SECONDS INR APTT (21-34) SECONDS Sodium (132-148) mmol/L Potassium (3.6-5.2) mmol/L Chloride (98-107) mmol/L Carbon Dioxide (22-30) mmol/L Anion Gap (10-20) BUN (9-20) mg/dL Creatinine (0.8-1.5) mg/dL Est GFR ( Amer) Est GFR (Non-Af Amer) Random Glucose (75-110) mg/dL Hemoglobin A1c 10.4 H (4.2-6.5) % Calcium (8.6-10.4) mg/dl Phosphorus (2.5-4.5) mg/dL Magnesium (1.6-2.3) mg/dL Total Bilirubin (0.2-1.3) mg/dL AST (17-59) U/L ALT (21-72) U/L Alkaline Phosphatase (38-126) U/L Ammonia (9-33) umol/L Total Creatine Kinase (55-170) U/L CK-MB (Mass) (0.0-3.38) ng/mL Total Protein (6.3-8.3) g/dL Albumin (3.5-5.0) g/dL Globulin (2.2-3.9) gm/dL Albumin/Globulin Ratio (1.0-2.1) Triglycerides 109 (0-149) mg/dL Cholesterol 109 (0-199) mg/dL LDL Cholesterol Direct 71 (0-129) mg/dL HDL Cholesterol 20 L (30-70) mg/dL Lipase (23-300) U/L Procalcitonin 0.46 (0.19-0.49) NG/ML Free T4 (0.78-2.19) ng/dL TSH 3rd Generation (0.46-4.68) mIU/L Prolactin 8.1 (3.7-17.9) ng/mL Laboratory Results - last 24 hr 05/30/18 05/30/18 05/30/18 04:58 04:58 15:56 WBC RBC Hgb Hct MCV MCH MCHC RDW Plt Count MPV Neut % (Auto) Lymph % (Auto) [place] % (Auto) Eos % (Auto) Baso % (Auto) Neut # (Auto) Lymph # (Auto) [place] # (Auto) Eos # (Auto) Baso # (Auto) PT INR APTT Sodium Potassium Chloride Carbon Dioxide Anion Gap BUN Creatinine Est GFR ( Amer) Est GFR (Non-Af Amer) Random Glucose Hemoglobin A1c 10.4 H Calcium Phosphorus Magnesium Total Bilirubin AST ALT Alkaline Phosphatase Ammonia Total Creatine Kinase CK-MB (Mass) Total Protein Albumin Globulin Albumin/Globulin Ratio Triglycerides 109 Cholesterol 109 LDL Cholesterol Direct 71 HDL Cholesterol 20 L Lipase Procalcitonin 0.46 Free T4 TSH 3rd Generation Prolactin 8.1 05/30/18 05/30/18 05/30/18 15:56 15:56 16:47 WBC RBC Hgb Hct MCV MCH MCHC RDW Plt Count MPV Neut % (Auto) Lymph % (Auto) [place] % (Auto) Eos % (Auto) Baso % (Auto) Neut # (Auto) Lymph # (Auto) [place] # (Auto) Eos # (Auto) Baso # (Auto) PT INR APTT Sodium Potassium Chloride Carbon Dioxide Anion Gap BUN Creatinine Est GFR ( Amer) Est GFR (Non-Af Amer) Random Glucose Hemoglobin A1c Calcium Phosphorus Magnesium Total Bilirubin AST ALT Alkaline Phosphatase Ammonia < 9 L Total Creatine Kinase 1004 H CK-MB (Mass) Total Protein Albumin Globulin Albumin/Globulin Ratio Triglycerides Cholesterol LDL Cholesterol Direct HDL Cholesterol Lipase 892 H Procalcitonin Free T4 1.41 TSH 3rd Generation 0.37 L Prolactin 05/31/18 05/31/18 05/31/18 05:35 05:35 05:36 WBC 16.2 H RBC 3.99 L Hgb 13.0 Hct 37.7 MCV 94.4 H D MCH 32.5 H MCHC 34.4 RDW 12.9 Plt Count 206 MPV 10.9 Neut % (Auto) 87.7 H Lymph % (Auto) 6.6 L [place] % (Auto) 4.6 Eos % (Auto) 0.9 Baso % (Auto) 0.2 Neut # (Auto) 14.2 H Lymph # (Auto) 1.1 [place] # (Auto) 0.7 Eos # (Auto) 0.1 Baso # (Auto) 0.0 PT 21.8 H INR 2.0 APTT 34 Sodium 138 Potassium 4.0 Chloride 107 Carbon Dioxide 20 L Anion Gap 14 BUN 37 H Creatinine 1.4 Est GFR ( Amer) 59 Est GFR (Non-Af Amer) 48 Random Glucose 223 H Hemoglobin A1c Calcium 9.7 Phosphorus 3.3 Magnesium 2.0 Total Bilirubin 0.9 AST 70 H D ALT 35 Alkaline Phosphatase 83 Ammonia Total Creatine Kinase 685 H CK-MB (Mass) 1.88 Total Protein 6.6 Albumin 3.0 L Globulin 3.5 Albumin/Globulin Ratio 0.9 L Triglycerides Cholesterol LDL Cholesterol Direct HDL Cholesterol Lipase 297 Procalcitonin Free T4 TSH 3rd Generation Prolactin Fingerstick Blood Sugar Results: 225 Results Reviewed to Date: Yes Review of Systems - Constitutional Constitutional: absent: Fever, Chills, Sweats - EENT Eyes: UNREMARKABLE. absent: Change in Vision Ears: UNREMARKABLE. absent: Decreased Hearing Nose/Mouth/Throat: UNREMARKABLE. absent: Nasal Congestion - Cardiovascular Cardiovascular: UNREMARKABLE. absent: Chest Pain, Dyspnea, Palpitations - Respiratory Respiratory: UNREMARKABLE. absent: Cough, Dyspnea - Gastrointestinal Gastrointestinal: UNREMARKABLE. absent: Abdominal Pain, Constipation, Diarrhea, Nausea, Vomiting - Genitourinary Genitourinary: Urinary Incontinence, UNREMARKABLE. absent: Dysuria - Musculoskeletal Musculoskeletal: As Par HPI, Arthralgias (R shoulder). absent: Numbness, Tingling - Integumentary Integumentary: UNREMARKABLE. absent: Lesions - Neurological Neurological: Tremor (L hand). absent: Headaches, Paresthesias - Psychiatric Psychiatric: UNREMARKABLE - Endocrine Endocrine: UNREMARKABLE - Hematologic/Lymphatic Hematologic: UNREMARKABLE. absent: Easy Bleeding, Easy Bruising, Lymphadenopathy Critical Care Progress Note - Extremities/Vascular Does the Patient have a Central Venous Catheter?: No Does the Patient need a Central Venous Catheter?: No Does the Patient have a James Catheter?: No Does the Patient need a James Catheter?: No - Prophylaxis GI Prophylaxis GI: Pepsid - Prophylaxis DVT Prophylaxis DVT: SCDs (Eliquis) - Nutrition Nutrition: Nutrition Category Date Time Status Heart Healthy Diet [DIET] Diets 05/30/18 Breakfast Active Assessment/Plan - Assessment and Plan (Free Text) Assessment: Patient is an 83 yo male with a history of Afib/flutter s/p cardioversions, T2DM, HTN, HLD, BPH, and renal insufficiency who presented to the ED with AMS (brought in by friend). Patient was seen in the ED the day prior for R shoulder pain and was started on Flexeril. He was also recently started on Percocet by his orthopedist, which patient has been taking around the clock. Patient was given Narcan in the ED. Mentation has improved, nearing baseline. Patient is able to be downgraded to telemetry unit. Plan: Neuro: AMS- improving, suspect 2/2 polypharmacy - CT head x2: no acute findings - Discontinued Percocet and Flexeril - Tylenol 650 mg PO Q6H PRN pain - PT/OT/ST CV: Afib RVR- improved - Monitor on telemetry- sinus rhythm with occasional PACs - Echo pending - Eliquis 5 mg PO BID - Cardiology consulted (Jeffrey) HTN - Amlodipine 5 mg PO daily - Labetalol 10 mg IV Q6H PRN Hyperlipidemia - Discontinue Crestor 2/2 rhabdo Pulm: - Maintain spO2>92%- nasal cannula PRN GI: Elevated lipase - Resolved (5218->297) - Abd u/s pending - Heart healthy diet Renal: Rhabdomyolysis - CK trending down (685, max 1297) MARTHA - Creatinine improved (3.4->1.4) - Nephrology consulted (Tomas) Endo: T2DM - Hypoglycemia protocol - Accuchecks ACHS with Regular ISS - Gabapentin 100 mg PO BID Heme: - Monitor H&H MSK: R shoulder pain s/p fall- patient is seeing ortho as outpatient for torn rotator cuff - R shoulder XR: no acute findings - PT/OT ID: - Afebrile - WBC trending down (19.1->16.2) - Zosyn 2.25 g IV Q6H Ppx: VTE: SCDs, Eliquis GI: Pepcid 20 mg PO daily Code status: full code Case discussed with attending, Dr. Yadav. PGY-1 Felisha Gold D.O.
[2018-05-31 08:25] LABS: EOSINOPHIL 3 % (0-4); LYMPHOCYTE 8 % (20-40); MONOCYTE 4 % (0-10); NEUTROPHIL 85 % (50-75); PLATELET ESTIMATE NORMAL (NORMAL); TOTAL CELLS COUNTED 100
--- NOTE | 2018-05-31 09:11 | CT ---
Date of service: 05/30/2018 PROCEDURE: CT HEAD WITHOUT CONTRAST. HISTORY: AMS COMPARISON: 05/29/2018. TECHNIQUE: Axial computed tomography images were obtained through the head/brain without intravenous contrast. Radiation dose: Total exam DLP = 1564.3 mGy-cm. This CT exam was performed using one or more of the following dose reduction techniques: Automated exposure control, adjustment of the mA and/or kV according to patient size, and/or use of iterative reconstruction technique. FINDINGS: HEMORRHAGE: No intracranial hemorrhage. BRAIN: There are mild chronic microangiopathic changes. There is no mass, mass effect or abnormal extra-axial fluid collection. There is no territorial infarction. The midline sagittal structures are normal. VENTRICLES: There is mild age-related global parenchymal volume loss and proportionate enlargement of the ventricles and cortical sulci. CALVARIUM: The skull base and calvarium are normal. PARANASAL SINUSES: Predominantly clear. MASTOID AIR CELLS: Predominantly clear. OTHER FINDINGS: None. IMPRESSION: No acute intracranial abnormality. A preliminary report was provided by [employer].
--- NOTE | 2018-05-31 11:35 | CP.PCM.CON ---
History of Present Illness - History of Present Illness History of Present Illness: HPI: 82-year-old male with history of diabetes, BPH, hypercholesterolemia, renal insufficiency, history of irregular heartbeat in the past, had cardioversions Now he is having no chest pain. Fell few days ago, suffered rhabdomyolysis, MARTHA. Patient has remained confused [facility], poor historian. Past medical history: Diabetes, takes insulin, BPH, high cholesterol, hyperlipidemia, hypertension, atrial fibrillation, status post cardioversion in the past also leg edema in the past Current medications reviewed Surgical history none Family history mother at the age of 90, father also in their old age. Siblings no medical history noted Review of Systems - Review of Systems Systems not reviewed;Unavailable: Altered Mental Status Past Patient History - Infectious Disease Hx of Infectious Diseases: None - Past Medical History & Family History Past Medical History?: Yes Past Family History: Reviewed and not pertinent - Past Social History Smoking Status: Former Smoker Chewing Tobacco Use: No Cigar Use: No Alcohol: None Drugs: Denies - CARDIAC Hx Cardia Arrhythmia: Yes (a flutter) Hx Hypercholesterolemia: Yes Hx Hypertension: Yes - PULMONARY Hx Respiratory Disorders: No - NEUROLOGICAL Hx Neurological Disorder: No - HEENT Other/Comment: wears glasses - RENAL Hx Chronic Kidney Disease: Yes - ENDOCRINE/METABOLIC Hx Diabetes Mellitus Type 2: Yes - INTEGUMENTARY Hx Dermatological Problems: No - MUSCULOSKELETAL/RHEUMATOLOGICAL Hx Falls: Yes - GASTROINTESTINAL Hx Gastrointestinal Disorders: No - GENITOURINARY/GYNECOLOGICAL Hx Prostate Problems: Yes (BPH) - PSYCHIATRIC Hx Substance Use: Yes - SURGICAL HISTORY Hx Surgeries: Yes (cannot recall all surgeries) Other/Comment: cardiac ablation - ANESTHESIA Hx Anesthesia: Yes (cannot recall what procdure he had that involved anesthesia) Hx Anesthesia Reactions: No Hx Malignant Hyperthermia: No Meds Allergies/Adverse Reactions: Allergies Allergy/AdvReac Type Severity Reaction Status Date / Time No Known Allergies Allergy Verified 05/28/18 03:21 - Medications Medications: Current Medications Amlodipine Besylate (Norvasc) 5 mg PO DAILY [facility] Last Admin: 05/31/18 09:26 Dose: 5 mg Apixaban (Eliquis) 5 mg PO Q12 [facility] Last Admin: 05/31/18 09:26 Dose: 5 mg Dextrose (Dextrose 50% Inj) 0 ml IV STAT PRN; Protocol PRN Reason: Hypoglycemia Protocol Dextrose (Glutose 15) 0 gm PO ONCE PRN; Protocol PRN Reason: Hypoglycemia Protocol Famotidine (Pepcid) 20 mg PO DAILY [facility] Last Admin: 05/31/18 09:26 Dose: 20 mg Gabapentin (Neurontin) 100 mg PO BID [facility] Last Admin: 05/31/18 09:26 Dose: 100 mg Glucagon (Glucagen Diagnostic Kit) 0 mg IM STAT PRN; Protocol PRN Reason: Hypoglycemia Protocol Metronidazole (Flagyl) 500 mg in 100 mls @ 100 mls/hr IVPB STAT [facility]; Protocol Last Admin: 05/30/18 01:33 Dose: 100 mls/hr Dextrose (Dextrose 5% In Water 1000 Ml) 1,000 mls @ 0 mls/hr IV .Q0M PRN; Protocol PRN Reason: Hypoglycemia Protocol Sodium Chloride (Sodium Chloride 0.9%) 1,000 mls @ 100 mls/hr IV .Q10H [facility] Last Admin: 05/31/18 09:28 Dose: 100 mls/hr Piperacillin Sod/Tazobactam (Sod 2.25 gm/ Sodium Chloride) 50 mls @ 100 mls/hr IV Q6H [facility]; Protocol Last Admin: 05/31/18 06:30 Dose: 100 mls/hr Influenza Virus Vaccine (Fluzone Quad [id number]) 60 mcg IM .ONCE ONE Stop: 06/01/18 10:01 Insulin Human Regular (Novolin R) 0 unit SC [facility]; Protocol Last Admin: 05/31/18 08:15 Dose: 3 units Labetalol HCl (Trandate) 10 mg IV Q6H PRN PRN Reason: Systolic Blood Pressure Last Admin: 05/31/18 02:13 Dose: 10 mg Metoprolol Tartrate (Lopressor) 12.5 mg PO BID [facility] Last Admin: 05/31/18 09:26 Dose: 12.5 mg Pneumococcal Polyvalent Vaccine (Pneumovax 23 Vaccine) 0.5 ml IM .ONCE ONE Stop: 06/01/18 10:01 Rosuvastatin Calcium (Crestor) 5 mg PO HS [facility] Last Admin: 05/30/18 21:20 Dose: 5 mg Physical Exam - Constitutional Appears: Well, Non-toxic, Chronically Ill - Head Exam Head Exam: ATRAUMATIC, NORMAL INSPECTION - Eye Exam Eye Exam: EOMI, Normal appearance - Neck Exam Neck exam: Positive for: Normal Inspection. Negative for: Tenderness - Respiratory Exam Respiratory Exam: Clear to Auscultation Bilateral, NORMAL BREATHING PATTERN - Cardiovascular Exam Cardiovascular Exam: REGULAR RHYTHM, +S1 - GI/Abdominal Exam GI & Abdominal Exam: Soft. absent: Tenderness - Extremities Exam Extremities exam: Positive for: normal inspection. Negative for: tenderness - Neurological Exam Neurological exam: Alert, CN II-XII Intact - Skin Skin Exam: Dry, Warm Results - Vital Signs Recent Vital Signs: Last Vital Signs Temp 98.7 F 05/31/18 07:30 Pulse 97 H 05/31/18 10:00 Resp 22 05/31/18 10:00 BP 159/80 H 05/31/18 09:01 Pulse Ox 97 05/31/18 10:00 - Labs Result Diagrams: 05/31/18 05:35 05/31/18 05:36 Labs: Laboratory Results - last 24 hr 05/29/18 05/30/18 05/30/18 22:08 00:45 01:50 WBC RBC Hgb Hct MCV MCH MCHC RDW Plt Count MPV Neut % (Auto) Lymph % (Auto) [place] % (Auto) Eos % (Auto) Baso % (Auto) Neut # (Auto) Lymph # (Auto) [place] # (Auto) Eos # (Auto) Baso # (Auto) Neutrophils % (Manual) Lymphocytes % (Manual) Monocytes % (Manual) Eosinophils % (Manual) Platelet Estimate PT INR APTT Sodium Potassium Chloride Carbon Dioxide Anion Gap BUN Creatinine Est GFR ( Amer) Est GFR (Non-Af Amer) POC Glucose (mg/dL) 498 H* 435 H* 433 H* Random Glucose Calcium Phosphorus Magnesium Total Bilirubin AST ALT Alkaline Phosphatase Ammonia Total Creatine Kinase CK-MB (Mass) Total Protein Albumin Globulin Albumin/Globulin Ratio Triglycerides Cholesterol LDL Cholesterol Direct HDL Cholesterol Lipase Procalcitonin Free T4 TSH 3rd Generation Prolactin 05/30/18 05/30/18 05/30/18 03:43 04:58 07:42 WBC RBC Hgb Hct MCV MCH MCHC RDW Plt Count MPV Neut % (Auto) Lymph % (Auto) [place] % (Auto) Eos % (Auto) Baso % (Auto) Neut # (Auto) Lymph # (Auto) [place] # (Auto) Eos # (Auto) Baso # (Auto) Neutrophils % (Manual) Lymphocytes % (Manual) Monocytes % (Manual) Eosinophils % (Manual) Platelet Estimate PT INR APTT Sodium Potassium Chloride Carbon Dioxide Anion Gap BUN Creatinine Est GFR ( Amer) Est GFR (Non-Af Amer) POC Glucose (mg/dL) 379 H 353 H Random Glucose Calcium Phosphorus Magnesium Total Bilirubin AST ALT Alkaline Phosphatase Ammonia Total Creatine Kinase CK-MB (Mass) Total Protein Albumin Globulin Albumin/Globulin Ratio Triglycerides Cholesterol LDL Cholesterol Direct HDL Cholesterol Lipase Procalcitonin 0.46 Free T4 TSH 3rd Generation Prolactin 05/30/18 05/30/18 05/30/18 11:58 15:56 15:56 WBC RBC Hgb Hct MCV MCH MCHC RDW Plt Count MPV Neut % (Auto) Lymph % (Auto) [place] % (Auto) Eos % (Auto) Baso % (Auto) Neut # (Auto) Lymph # (Auto) [place] # (Auto) Eos # (Auto) Baso # (Auto) Neutrophils % (Manual) Lymphocytes % (Manual) Monocytes % (Manual) Eosinophils % (Manual) Platelet Estimate PT INR APTT Sodium Potassium Chloride Carbon Dioxide Anion Gap BUN Creatinine Est GFR ( Amer) Est GFR (Non-Af Amer) POC Glucose (mg/dL) 321 H Random Glucose Calcium Phosphorus Magnesium Total Bilirubin AST ALT Alkaline Phosphatase Ammonia < 9 L Total Creatine Kinase CK-MB (Mass) Total Protein Albumin Globulin Albumin/Globulin Ratio Triglycerides 109 Cholesterol 109 LDL Cholesterol Direct 71 HDL Cholesterol 20 L Lipase Procalcitonin Free T4 TSH 3rd Generation Prolactin 8.1 05/30/18 05/30/18 05/30/18 15:56 16:08 16:47 WBC RBC Hgb Hct MCV MCH MCHC RDW Plt Count MPV Neut % (Auto) Lymph % (Auto) [place] % (Auto) Eos % (Auto) Baso % (Auto) Neut # (Auto) Lymph # (Auto) [place] # (Auto) Eos # (Auto) Baso # (Auto) Neutrophils % (Manual) Lymphocytes % (Manual) Monocytes % (Manual) Eosinophils % (Manual) Platelet Estimate PT INR APTT Sodium Potassium Chloride Carbon Dioxide Anion Gap BUN Creatinine Est GFR ( Amer) Est GFR (Non-Af Amer) POC Glucose (mg/dL) 337 H Random Glucose Calcium Phosphorus Magnesium Total Bilirubin AST ALT Alkaline Phosphatase Ammonia Total Creatine Kinase 1004 H CK-MB (Mass) Total Protein Albumin Globulin Albumin/Globulin Ratio Triglycerides Cholesterol LDL Cholesterol Direct HDL Cholesterol Lipase 892 H Procalcitonin Free T4 1.41 TSH 3rd Generation 0.37 L Prolactin 05/30/18 05/31/18 05/31/18 21:03 05:35 05:35 WBC 16.2 H RBC 3.99 L Hgb 13.0 Hct 37.7 MCV 94.4 H D MCH 32.5 H MCHC 34.4 RDW 12.9 Plt Count 206 MPV 10.9 Neut % (Auto) 87.7 H Lymph % (Auto) 6.6 L [place] % (Auto) 4.6 Eos % (Auto) 0.9 Baso % (Auto) 0.2 Neut # (Auto) 14.2 H Lymph # (Auto) 1.1 [place] # (Auto) 0.7 Eos # (Auto) 0.1 Baso # (Auto) 0.0 Neutrophils % (Manual) 85 H Lymphocytes % (Manual) 8 L Monocytes % (Manual) 4 Eosinophils % (Manual) 3 Platelet Estimate Normal PT 21.8 H INR 2.0 APTT 34 Sodium Potassium Chloride Carbon Dioxide Anion Gap BUN Creatinine Est GFR ( Amer) Est GFR (Non-Af Amer) POC Glucose (mg/dL) 241 H Random Glucose Calcium Phosphorus Magnesium Total Bilirubin AST ALT Alkaline Phosphatase Ammonia Total Creatine Kinase CK-MB (Mass) Total Protein Albumin Globulin Albumin/Globulin Ratio Triglycerides Cholesterol LDL Cholesterol Direct HDL Cholesterol Lipase Procalcitonin Free T4 TSH 3rd Generation Prolactin 05/31/18 05:36 WBC RBC Hgb Hct MCV MCH MCHC RDW Plt Count MPV Neut % (Auto) Lymph % (Auto) [place] % (Auto) Eos % (Auto) Baso % (Auto) Neut # (Auto) Lymph # (Auto) [place] # (Auto) Eos # (Auto) Baso # (Auto) Neutrophils % (Manual) Lymphocytes % (Manual) Monocytes % (Manual) Eosinophils % (Manual) Platelet Estimate PT INR APTT Sodium 138 Potassium 4.0 Chloride 107 Carbon Dioxide 20 L Anion Gap 14 BUN 37 H Creatinine 1.4 Est GFR ( Amer) 59 Est GFR (Non-Af Amer) 48 POC Glucose (mg/dL) Random Glucose 223 H Calcium 9.7 Phosphorus 3.3 Magnesium 2.0 Total Bilirubin 0.9 AST 70 H D ALT 35 Alkaline Phosphatase 83 Ammonia Total Creatine Kinase 685 H CK-MB (Mass) 1.88 Total Protein 6.6 Albumin 3.0 L Globulin 3.5 Albumin/Globulin Ratio 0.9 L Triglycerides Cholesterol LDL Cholesterol Direct HDL Cholesterol Lipase 297 Procalcitonin Free T4 TSH 3rd Generation Prolactin Assessment & Plan (1) MARTHA (acute kidney injury) Status: Acute (2) Rhabdomyolysis Status: Acute (3) DM type 2 (diabetes mellitus, type 2) Status: Acute (4) Rotator cuff tear Status: Acute (5) Rotator cuff tear Status: Acute - Assessment and Plan (Free Text) Plan: Continue IV fluids Monitor for CKD baseline follow up lytes, check for proteinuria
[2018-05-31 12:39] LABS: URINE BACTERIA OCC (<OCC); URINE BILIRUBIN NEGATIVE (NEGATIVE); URINE BLOOD 2+ (NEGATIVE); URINE CLARITY Hazy (Clear); URINE COLOR Yellow (YELLOW); URINE GLUCOSE (UA) 3+ mg/dL (Normal); URINE LEUKOCYTE ESTERASE 3+ Leu/uL (Negative); URINE PROTEIN 1+ mg/dL (NEGATIVE); URINE UROBILINOGEN NORMAL mg/dL (0.2-1.0)
--- NOTE | 2018-05-31 13:47 | RAD ---
Date of service: 05/31/2018 PROCEDURE: Right shoulder HISTORY: fracture COMPARISON: None TECHNIQUE: Standard protocol for this study/examination. FINDINGS: Severe glenohumeral and acromioclavicular degenerative change. IMPRESSION: No acute findings related to/accounting for the clinical presentation. Degenerative changes affecting acromioclavicular joint and glenohumeral relationship.
--- NOTE | 2018-05-31 17:53 | US ---
Date of service: 05/31/2018 HISTORY: high lft COMPARISON: None. TECHNIQUE: Sonographic evaluation of the abdomen. FINDINGS: LIVER: Measures 19.6 cm. Diffusely increased echogenicity of the liver parenchyma. Consistent with fatty infiltration. Smooth contour. No mass. No intrahepatic biliary ductal dilatation. GALLBLADDER: No cholelithiasis. No mural thickening. No pericholecystic fluid. COMMON BILE DUCT: Measures 6 mm. No stones. No dilatation. PANCREAS: Limited visualization. No gross abnormality. RIGHT KIDNEY: Measures 11.1cm. Normal cortical echogenicity and thickness. Mid renal cortical cyst, 1.4 x 1.4 x 1.6 cm. No calculus or hydronephrosis. LEFT KIDNEY: Measures 10.4cm. Normal cortical thickness and echogenicity. Upper pole cortical cyst, 8.1 x 9.0 x 9.1 cm. Lower pole simple cyst, 3.0 x 2.0 x 2.6 cm. No solid mass. Nonobstructing mid left renal calculus identified. No hydronephrosis. SPLEEN: Normal in size and contour. No mass. AORTA: No aneurysmal dilatation. IVC: Unremarkable. OTHER FINDINGS: None. IMPRESSION: Bilateral renal cysts. Nonobstructing mid left renal calculus. No hydronephrosis. No cholelithiasis or evidence of cholecystitis. No biliary obstruction. Mild hepatomegaly with fatty infiltration of the liver.
--- NOTE | 2018-05-31 21:15 | CP.PCM.PN ---
Subjective - Date & Time of Evaluation Date of Evaluation: 05/31/18 Time of Evaluation: 15:15 - Subjective Subjective: Patient was seen and evaluated. Slightly confused. Not in distress CCU Objective - Physical Exam Head: Positive for: Atraumatic, Normocephalic Pupils: Positive for: PERRL Extroacular Muscles: Positive for: EOMI Conjunctiva: Positive for: Normal Mouth: Positive for: Moist Mucous Membranes Neck: Positive for: Normal Range of Motion Respiratory/Chest: Positive for: Clear to Auscultation. Negative for: Respiratory Distress, Accessory Muscle Use Cardiovascular: Positive for: Normal S1, S2, Irregular Rhythm Abdomen: Positive for: Normal Bowel Sounds. Negative for: Tenderness, Distention, Rebound, Guarding Genitourinary Male: Positive for: Other ([place] condom catheter in place) Upper Extremity: Positive for: Normal Inspection, NORMAL PULSES, Tenderness (R shoulder), Neurovascularly Intact, Capillary Refill < 2s. Negative for: Swelling, Erythema Lower Extremity: Positive for: Normal Inspection, NORMAL PULSES, Neurovascularly Intact, Capillary Refill < 2 s. Negative for: Edema Neurological: Positive for: GCS=15 Skin: Positive for: Warm, Dry, Normal Color Psychiatric: Positive for: Alert, Other (oriented to person and place) Review of Systems - Constitutional Constitutional: absent: Fever, Chills, Sweats - EENT Eyes: UNREMARKABLE. absent: Change in Vision Ears: UNREMARKABLE. absent: Decreased Hearing Nose/Mouth/Throat: UNREMARKABLE. absent: Nasal Congestion - Cardiovascular Cardiovascular: UNREMARKABLE. absent: Chest Pain, Dyspnea, Palpitations - Respiratory Respiratory: UNREMARKABLE. absent: Cough, Dyspnea - Gastrointestinal Gastrointestinal: UNREMARKABLE. absent: Abdominal Pain, Constipation, Diarrhea, Nausea, Vomiting - Genitourinary Genitourinary: Urinary Incontinence, UNREMARKABLE. absent: Dysuria - Musculoskeletal Musculoskeletal: As Par HPI, Arthralgias (R shoulder). absent: Numbness, Tingling - Integumentary Integumentary: UNREMARKABLE. absent: Lesions - Neurological Neurological: Tremor (L hand). absent: Headaches, Paresthesias - Psychiatric Psychiatric: UNREMARKABLE - Endocrine Endocrine: UNREMARKABLE - Hematologic/Lymphatic Hematologic: UNREMARKABLE. absent: Easy Bleeding, Easy Bruising, Lymphadenopathy Assessment/Plan - Assessment and Plan (Free Text) Assessment: Patient is an 83 yo male with a history of Afib/flutter s/p cardioversions, T2DM, HTN, HLD, BPH, and renal insufficiency who presented to the ED with AMS (brought in by friend). Patient was seen in the ED the day prior for R shoulder pain and was started on Flexeril. He was also recently started on Percocet by his orthopedist, which patient has been taking around the clock. Patient was given Narcan in the ED. Mentation has improved, nearing baseline. Patient is able to be downgraded to telemetry unit. Plan: Neuro: AMS- improving, suspect 2/2 polypharmacy - CT head x2: no acute findings - Discontinued Percocet and Flexeril - Tylenol 650 mg PO Q6H PRN pain - PT/OT/ST CV: Afib RVR- improved - Monitor on telemetry- sinus rhythm with occasional PACs - Echo pending - Eliquis 5 mg PO BID - Cardiology consulted (Jeffrey) HTN - Amlodipine 5 mg PO daily - Labetalol 10 mg IV Q6H PRN Hyperlipidemia - Discontinue Crestor 2/2 rhabdo Pulm: - Maintain spO2>92%- nasal cannula PRN GI: Elevated lipase - Resolved (5218->297) - Abd u/s pending - Heart healthy diet Renal: Rhabdomyolysis - CK trending down (685, max 1297) MARTHA - Creatinine improved (3.4->1.4) - Nephrology consulted (Tomas) Endo: T2DM - Hypoglycemia protocol - Accuchecks ACHS with Regular ISS - Gabapentin 100 mg PO BID Heme: - Monitor H&H MSK: R shoulder pain s/p fall- patient is seeing ortho as outpatient for torn rotator cuff - R shoulder XR: no acute findings - PT/OT ID: - Afebrile - WBC trending down (19.1->16.2) - Zosyn 2.25 g IV Q6H Ppx: VTE: SCDs, Eliquis GI: Pepcid 20 mg PO daily Code status: full code Objective - Vital Signs/Intake and Output Vital Signs (last 24 hours): Temp Pulse Resp BP Pulse Ox 98.6 F 96 H 25 H 128/68 95 05/31/18 20:00 05/31/18 20:00 05/31/18 20:00 05/31/18 20:00 05/31/18 20:00 Intake and Output: 05/31/18 06/01/18 18:59 06:59 Intake Total 900 Output Total 0 Balance 900 - Medications Medications: Current Medications Acetaminophen (Tylenol 325mg Tab) 650 mg PO Q6 PRN PRN Reason: Pain, Mild (1-3) Amlodipine Besylate (Norvasc) 5 mg PO DAILY [facility] Last Admin: 05/31/18 09:26 Dose: 5 mg Apixaban (Eliquis) 5 mg PO Q12 [facility] Last Admin: 05/31/18 09:26 Dose: 5 mg Dextrose (Dextrose 50% Inj) 0 ml IV STAT PRN; Protocol PRN Reason: Hypoglycemia Protocol Dextrose (Glutose 15) 0 gm PO ONCE PRN; Protocol PRN Reason: Hypoglycemia Protocol Famotidine (Pepcid) 20 mg PO DAILY [facility] Last Admin: 05/31/18 09:26 Dose: 20 mg Gabapentin (Neurontin) 100 mg PO BID [facility] Last Admin: 05/31/18 17:01 Dose: 100 mg Glucagon (Glucagen Diagnostic Kit) 0 mg IM STAT PRN; Protocol PRN Reason: Hypoglycemia Protocol Metronidazole (Flagyl) 500 mg in 100 mls @ 100 mls/hr IVPB STAT [facility]; Protocol Last Admin: 05/30/18 01:33 Dose: 100 mls/hr Dextrose (Dextrose 5% In Water 1000 Ml) 1,000 mls @ 0 mls/hr IV .Q0M PRN; Protocol PRN Reason: Hypoglycemia Protocol Piperacillin Sod/Tazobactam (Sod 2.25 gm/ Sodium Chloride) 50 mls @ 100 mls/hr IV Q6H [facility]; Protocol Last Admin: 05/31/18 19:26 Dose: 100 mls/hr Influenza Virus Vaccine (Fluzone Quad [id number]) 60 mcg IM .ONCE ONE Stop: 06/01/18 10:01 Insulin Human Regular (Novolin R) 0 unit SC ACHS [facility]; Protocol Last Admin: 05/31/18 17:01 Dose: 3 units Labetalol HCl (Trandate) 10 mg IV Q6H PRN PRN Reason: Systolic Blood Pressure Last Admin: 05/31/18 02:13 Dose: 10 mg Metoprolol Tartrate (Lopressor) 12.5 mg PO BID [facility] Last Admin: 05/31/18 17:01 Dose: 12.5 mg Pneumococcal Polyvalent Vaccine (Pneumovax 23 Vaccine) 0.5 ml IM .ONCE ONE Stop: 06/01/18 10:01 - Labs Labs: 05/31/18 05:35 05/31/18 05:36 PT 21.8 SECONDS (9.7-12.2) H 05/31/18 05:35 INR 2.0 05/31/18 05:35 APTT 34 SECONDS (21-34) 05/31/18 05:35
[2018-06-01] MEDS: Piperacillin/Tazobact 2.25 GM in Sodium Chloride 0.9% 50 ML IV SCH ×4 (01:00→18:02)
[2018-06-01 06:58] LABS: HEMOGLOBIN 13.1 g/dL (12.0-18.0); MEAN CELL VOLUME 94.9 fL (80.0-94.0); MEAN CORPUSCULAR HEMOGLOBIN 32.4 pg (27.0-31.0); MEAN CORPUSCULAR HGB CONC 34.2 g/dL (33.0-37.0); MEAN PLATELET VOLUME 11.4 fL (7.2-11.7); RBC 4.03 Mil/uL (4.40-5.90); RED CELL DISTRIBUTION WIDTH 12.8 % (11.5-14.5); WHITE BLOOD COUNT 11.7 K/uL (4.8-10.8)
[2018-06-01 07:15] LABS: ALB/GLOB RATIO 0.9 (1.0-2.1); ALBUMIN 3.1 g/dL (3.5-5.0); CALCIUM 9.7 mg/dl (8.6-10.4)
[2018-06-01] MEDS: (Novolin R) Insulin Human Regular 100 units/ml vial SC SCH ×4 (07:47→22:13)
--- NOTE | 2018-06-01 09:36 | PN ---
DATE: 05/31/2018 TIME OF EVALUATION: 06:55 a.m. SUBJECTIVE: The patient is sleeping comfortably, arousable on calling his first name, knows he is in the hospital, moves all four extremities without any problem. No subjective symptoms at present except right shoulder problem from his fall. Mental status examination seems to be to his baseline. Moves all four extremities. No muscle tenderness. PHYSICAL EXAMINATION: VITAL SIGNS: Blood pressure 138/77, mean arterial pressure of 97, respiratory rate 18, temperature afebrile with a pulse rate of 91 and regular. RECENT BLOOD WORKUP: WBC 16.2, hemoglobin 13, hematocrit 37.7, platelets 206. PT 21.8, INR 2, PTT 34, sodium 138, potassium 4, chloride 107, bicarbonate 20, BUN 37, creatinine 1.4, glucose 223, CPK drastically down from 1004 to 685. Procalcitonin 0.46, TSH 0.37, prolactin 8.1. Blood culture shows gram-positive cocci. The patient's neuro status is much improved. Electrolytes are also coming closer to the normal. Repeat CT is pending and electroencephalogram is also on progress. The patient will be followed closely with you. Hernán Molina MD
[2018-06-01] MEDS ORDERED: Influenza Vaccine 60 MCG/0.5 ML SYR (3 yr & up) IM ONE (10:00)
[2018-06-01] MEDS ORDERED: Pneumococcal 23-Valent Vaccine IM ONE (10:00)
--- NOTE | 2018-06-01 11:05 | CP.PCM.PN ---
Subjective - Date & Time of Evaluation Date of Evaluation: 06/01/18 Time of Evaluation: 11:04 - Subjective Subjective: seen and examined confused 24 hour collection ongoing, incontinent Objective - Vital Signs/Intake and Output Vital Signs (last 24 hours): Temp Pulse Resp BP Pulse Ox 97.7 F 109 H 13 137/62 94 L 06/01/18 08:00 06/01/18 10:00 06/01/18 08:00 06/01/18 08:00 06/01/18 04:00 Intake and Output: 06/01/18 06/01/18 06:59 18:59 Intake Total 240 420 Output Total 400 Balance -160 420 - Medications Medications: Current Medications Acetaminophen (Tylenol 325mg Tab) 650 mg PO Q6 PRN PRN Reason: Pain, Mild (1-3) Amlodipine Besylate (Norvasc) 5 mg PO DAILY [facility] Last Admin: 06/01/18 09:43 Dose: 5 mg Apixaban (Eliquis) 5 mg PO Q12 [facility] Last Admin: 06/01/18 09:42 Dose: 5 mg Dextrose (Dextrose 50% Inj) 0 ml IV STAT PRN; Protocol PRN Reason: Hypoglycemia Protocol Dextrose (Glutose 15) 0 gm PO ONCE PRN; Protocol PRN Reason: Hypoglycemia Protocol Famotidine (Pepcid) 20 mg PO DAILY [facility] Last Admin: 06/01/18 09:42 Dose: 20 mg Gabapentin (Neurontin) 100 mg PO BID [facility] Last Admin: 06/01/18 09:43 Dose: 100 mg Glucagon (Glucagen Diagnostic Kit) 0 mg IM STAT PRN; Protocol PRN Reason: Hypoglycemia Protocol Metronidazole (Flagyl) 500 mg in 100 mls @ 100 mls/hr IVPB STAT [facility]; Protocol Last Admin: 05/30/18 01:33 Dose: 100 mls/hr Dextrose (Dextrose 5% In Water 1000 Ml) 1,000 mls @ 0 mls/hr IV .Q0M PRN; Protocol PRN Reason: Hypoglycemia Protocol Piperacillin Sod/Tazobactam (Sod 2.25 gm/ Sodium Chloride) 50 mls @ 100 mls/hr IV Q6H [facility]; Protocol Last Admin: 06/01/18 07:44 Dose: 100 mls/hr Insulin Human Regular (Novolin R) 0 unit SC ACHS [facility]; Protocol Last Admin: 06/01/18 07:47 Dose: 4 units Labetalol HCl (Trandate) 10 mg IV Q6H PRN PRN Reason: Systolic Blood Pressure Last Admin: 05/31/18 02:13 Dose: 10 mg Metoprolol Tartrate (Lopressor) 12.5 mg PO BID [facility] Last Admin: 06/01/18 09:43 Dose: 12.5 mg - Labs Labs: 06/01/18 06:46 06/01/18 06:46 PT 21.8 SECONDS (9.7-12.2) H 05/31/18 05:35 INR 2.0 05/31/18 05:35 APTT 34 SECONDS (21-34) 05/31/18 05:35 - Constitutional Appears: No Acute Distress, Chronically Ill - Head Exam Head Exam: NORMAL INSPECTION, NORMOCEPHALIC - Eye Exam Eye Exam: Normal appearance, PERRL - ENT Exam ENT Exam: Mucous Membranes Moist, Normal Exam - Neck Exam Neck Exam: Full ROM, Normal Inspection - Respiratory Exam Respiratory Exam: Clear to Ausculation Bilateral, NORMAL BREATHING PATTERN - Cardiovascular Exam Cardiovascular Exam: REGULAR RHYTHM, RRR - GI/Abdominal Exam GI & Abdominal Exam: Distended, Soft - Extremities Exam Extremities Exam: Normal Inspection - Neurological Exam Neurological Exam: Awake. absent: Oriented x3 - Skin Skin Exam: Dry, Intact Assessment and Plan (1) MARTHA (acute kidney injury) Status: Acute (2) DM type 2 (diabetes mellitus, type 2) Status: Acute (3) Pancreatitis Status: Acute (4) Renal insufficiency Status: Acute - Assessment and Plan (Free Text) Assessment: resolving martha bacteremia, strep gp B mild rhabdomyolysis pancreatitis a fib plan: iv fluids check urine cultures antibiotics supportive care
--- NOTE | 2018-06-01 18:44 | CARD ---
APPROVED REPORT Date of service: 05/31/2018 EXAM: Two-dimensional and M-mode echocardiogram with Doppler and color Doppler. Other Information Quality : TDSRhythm : Atrial Fibrillation RISK FACTORS Hypertension Hyperlipidemia Diabetes 2D DIMENSIONS IVSd1.4 (0.7-1.1cm)LVDd4.0 (3.9-5.9cm) LVOT Diameter2.1 (1.8-2.4cm)PWd1.4 (0.7-1.1cm) LA Mvacdl72 (18-58mL)LVDs2.5 (2.5-4.0cm) FS (%) 37.6 %LVEF (%)68.3 (>50%) LVEF (Keating's)45 % M-Mode DIMENSIONS Left Atrium (MM)3.57 (2.5-4.0cm)IVSd1.28 (0.7-1.1cm) Aortic Root4.02 (2.2-3.7cm)LVDd5.64 (4.0-5.6cm) Aortic Cusp Exc.0.76 (1.5-2.0cm)PWd1.05 (0.7-1.1cm) Aortic Valve AoV Peak Uqchqwwi581.6cm/sAoV VTI41.4cmAO Peak GR.21mmHg LVOT Peak Eaavnxtz779.5cm/sLVOT VTI19.09cmAO Mean GR.14mmHg SHANELLE (VMAX)1.64ae2TTX (VTI)1.54cm2 Mitral Valve MV E Isbbojub13.8cm/sMV A Qrrvsnca74.9cm/sE/A ratio1.1 TDI Lateral E' Peak V6.93cm/sMedial E' Peak V7.45cm/sE/Lateral E'14.1 E/Medial E'13.1 LEFT VENTRICLE The left ventricle is normal size. There is mild concentric left ventricular hypertrophy. The Ejection Fraction is 50-55%. There is normal LV segmental wall motion. The left atrial pressure is mildly elevated. RIGHT VENTRICLE The right ventricle is normal size. The right ventricular systolic function is normal. ATRIA The left atrium size is normal. The right atrium size is normal. The interatrial septum is intact with no evidence for an atrial septal defect. AORTIC VALVE The aortic valve is moderately to severely calcified. The aortic valve is probably trileaflet. No aortic regurgitation is present. There is mild valvular aortic stenosis. Calculated aortic valve area is 1.5 cm2 with maximum pressure gradient of 21 mmHg and mean pressure gradient of 14 mmHg. MITRAL VALVE Mitral annular calcification is moderate. Mitral regurgitation is trace. TRICUSPID VALVE The tricuspid valve is normal in structure. PULMONIC VALVE The pulmonary valve is normal in structure. There is trace pulmonic valvular regurgitation. GREAT VESSELS The aortic root is normal size. The aortic root displays moderate sclerocalcific changes of the aortic root. PERICARDIAL EFFUSION There is no pericardial effusion. <Conclusion> The left ventricle is normal size. There is mild concentric left ventricular hypertrophy. The Ejection Fraction is 50-55%. The left atrial pressure is mildly elevated. There is mild valvular aortic stenosis. Calculated aortic valve area is 1.5 cm2 with maximum pressure gradient of 21 mmHg and mean pressure gradient of 14 mmHg. The aortic valve is moderately to severely calcified. The aortic valve is probably trileaflet. Mitral regurgitation is trace. Mitral annular calcification is moderate. The aortic root is normal size. The aortic root displays moderate sclerocalcific changes of the aortic root. There is no pericardial effusion.
--- NOTE | 2018-06-01 19:19 | CARD ---
APPROVED REPORT Date of service: 05/29/2018 EKG Measurement Heart [id number] <Conclusion> Svt Left axis deviation Right bundle branch block Septal infarct, age undetermined Inferior infarct, age undetermined Abnormal ECG
--- NOTE | 2018-06-01 20:45 | CP.PCM.PN ---
Subjective - Date & Time of Evaluation Date of Evaluation: 06/01/18 Time of Evaluation: 20:44 - Subjective Subjective: Patient today feeling slightly better. He was combining of right shoulder pain, better than yesterday. He is feeling somewhat sleepy now. But he is otherwise following simple, is I spoke to the arthritic surgery about the right shoulder. Patient can be discharged home and he will can follow up as an outpatient for the further management. Will continue the current treatment. Objective - Vital Signs/Intake and Output Vital Signs (last 24 hours): Temp Pulse Resp BP Pulse Ox 97.9 F 103 H 20 153/69 H 94 L 06/01/18 16:00 06/01/18 16:00 06/01/18 16:00 06/01/18 16:00 06/01/18 04:00 Intake and Output: 06/01/18 06/02/18 18:59 06:59 Intake Total 970 Output Total 100 Balance 870 - Medications Medications: Current Medications Acetaminophen (Tylenol 325mg Tab) 650 mg PO Q6 PRN PRN Reason: Pain, Mild (1-3) Amlodipine Besylate (Norvasc) 5 mg PO DAILY [facility] Last Admin: 06/01/18 09:43 Dose: 5 mg Apixaban (Eliquis) 5 mg PO Q12 [facility] Last Admin: 06/01/18 09:42 Dose: 5 mg Dextrose (Dextrose 50% Inj) 0 ml IV STAT PRN; Protocol PRN Reason: Hypoglycemia Protocol Dextrose (Glutose 15) 0 gm PO ONCE PRN; Protocol PRN Reason: Hypoglycemia Protocol Famotidine (Pepcid) 20 mg PO DAILY [facility] Last Admin: 06/01/18 09:42 Dose: 20 mg Gabapentin (Neurontin) 100 mg PO BID [facility] Last Admin: 06/01/18 17:04 Dose: 100 mg Glucagon (Glucagen Diagnostic Kit) 0 mg IM STAT PRN; Protocol PRN Reason: Hypoglycemia Protocol Metronidazole (Flagyl) 500 mg in 100 mls @ 100 mls/hr IVPB STAT JOHN; Protocol Last Admin: 05/30/18 01:33 Dose: 100 mls/hr Dextrose (Dextrose 5% In Water 1000 Ml) 1,000 mls @ 0 mls/hr IV .Q0M PRN; Protocol PRN Reason: Hypoglycemia Protocol Piperacillin Sod/Tazobactam (Sod 2.25 gm/ Sodium Chloride) 50 mls @ 100 mls/hr IV Q6H [facility]; Protocol Last Admin: 06/01/18 18:02 Dose: 100 mls/hr Insulin Human Regular (Novolin R) 0 unit SC ACHS [facility]; Protocol Last Admin: 06/01/18 16:38 Dose: 8 units Labetalol HCl (Trandate) 10 mg IV Q6H PRN PRN Reason: Systolic Blood Pressure Last Admin: 05/31/18 02:13 Dose: 10 mg Metoprolol Tartrate (Lopressor) 12.5 mg PO BID [facility] Last Admin: 06/01/18 17:04 Dose: 12.5 mg - Labs Labs: 06/01/18 06:46 06/01/18 06:46 PT 21.8 SECONDS (9.7-12.2) H 05/31/18 05:35 INR 2.0 05/31/18 05:35 APTT 34 SECONDS (21-34) 05/31/18 05:35
--- NOTE | 2018-06-01 21:42 | CP.PCM.PN ---
Subjective - Date & Time of Evaluation Date of Evaluation: 06/01/18 Time of Evaluation: 09:05 - Subjective Subjective: Patient seen and evaluated Denies chest pain and dyspnea A Fib HTN Eliquis changed to 2.5mg po bid due to CKD Objective - Vital Signs/Intake and Output Vital Signs (last 24 hours): Temp Pulse Resp BP Pulse Ox 98.1 F 88 25 H 153/69 H 94 L 06/01/18 20:00 06/01/18 20:00 06/01/18 20:00 06/01/18 20:00 06/01/18 04:00 Intake and Output: 06/01/18 06/02/18 18:59 06:59 Intake Total 970 Output Total 100 Balance 870 - Medications Medications: Current Medications Acetaminophen (Tylenol 325mg Tab) 650 mg PO Q6 PRN PRN Reason: Pain, Mild (1-3) Amlodipine Besylate (Norvasc) 5 mg PO DAILY [facility] Last Admin: 06/01/18 09:43 Dose: 5 mg Apixaban (Eliquis) 2.5 mg PO Q12 [facility] Dextrose (Dextrose 50% Inj) 0 ml IV STAT PRN; Protocol PRN Reason: Hypoglycemia Protocol Dextrose (Glutose 15) 0 gm PO ONCE PRN; Protocol PRN Reason: Hypoglycemia Protocol Famotidine (Pepcid) 20 mg PO DAILY [facility] Last Admin: 06/01/18 09:42 Dose: 20 mg Gabapentin (Neurontin) 100 mg PO BID [facility] Last Admin: 06/01/18 17:04 Dose: 100 mg Glucagon (Glucagen Diagnostic Kit) 0 mg IM STAT PRN; Protocol PRN Reason: Hypoglycemia Protocol Metronidazole (Flagyl) 500 mg in 100 mls @ 100 mls/hr IVPB STAT [facility]; Protocol Last Admin: 05/30/18 01:33 Dose: 100 mls/hr Dextrose (Dextrose 5% In Water 1000 Ml) 1,000 mls @ 0 mls/hr IV .Q0M PRN; Protocol PRN Reason: Hypoglycemia Protocol Piperacillin Sod/Tazobactam (Sod 2.25 gm/ Sodium Chloride) 50 mls @ 100 mls/hr IV Q6H [facility]; Protocol Last Admin: 06/01/18 18:02 Dose: 100 mls/hr Insulin Human Regular (Novolin R) 0 unit SC ACHS [facility]; Protocol Last Admin: 06/01/18 16:38 Dose: 8 units Labetalol HCl (Trandate) 10 mg IV Q6H PRN PRN Reason: Systolic Blood Pressure Last Admin: 05/31/18 02:13 Dose: 10 mg Metoprolol Tartrate (Lopressor) 12.5 mg PO BID [facility] Last Admin: 06/01/18 17:04 Dose: 12.5 mg - Labs Labs: 06/01/18 06:46 06/01/18 06:46 PT 21.8 SECONDS (9.7-12.2) H 05/31/18 05:35 INR 2.0 05/31/18 05:35 APTT 34 SECONDS (21-34) 05/31/18 05:35
[2018-06-02] MEDS: Piperacillin/Tazobact 2.25 GM in Sodium Chloride 0.9% 50 ML IV SCH ×4 (01:19→19:02)
--- NOTE | 2018-06-02 06:21 | PN ---
DATE: 06/01/2018 TIME OF EVALUATION: 07:00 a.m. NEUROLOGICAL PROBLEM: Metabolic encephalopathy secondary to rhabdomyolysis. The patient seems to be confused, lying obliquely in the bed. He is not on IV fluids. He seems to look dry. He knows he is in the hospital. He does not want to name the hospital. He follows one to two step command. No right and left confusion. Speech somewhat make sense. Moves all four extremities against the gravity. Deep tendon reflexes are trace. Plantars have equivocal response on both sides. His recent blood workup; WBC 16.2, hemoglobin 13, hematocrit 37.7, platelet 206,000. Sodium 138, potassium 4, chloride 107, bicarbonate 220, BUN 37, creatinine 1.4, glucose 269, CPK went down from 1004 to 685 yesterday. Urine shows 1+ proteinuria, 3+ glycosuria, 2+ hematuria. RECOMMENDATION: The patient should resume IV hydration. Urine for myoglobinuria is still pending. Electroencephalogram is also pending. When the patient is medically stable, the patient is recommended to have MRI of the brain. The patient will be followed closely with you. Hernán Molina MD
[2018-06-02] MEDS: (Novolin R) Insulin Human Regular 100 units/ml vial SC SCH ×4 (08:30→23:32)
--- NOTE | 2018-06-02 14:11 | CP.PCM.PN ---
Subjective - Date & Time of Evaluation Date of Evaluation: 06/02/18 Time of Evaluation: 14:09 - Subjective Subjective: no new labs afib on monitor c/o back pain poor po intake urinating ok no fever or chills no rash no arthralgias Objective - Vital Signs/Intake and Output Vital Signs (last 24 hours): Temp Pulse Resp BP Pulse Ox 97.8 F 108 H 17 133/77 96 06/02/18 04:00 06/02/18 04:00 06/02/18 04:00 06/02/18 04:00 06/02/18 04:00 Intake and Output: 06/02/18 06/02/18 06:59 18:59 Intake Total 1094 Output Total 1360 Balance -266 - Medications Medications: Current Medications Acetaminophen (Tylenol 325mg Tab) 650 mg PO Q6 PRN PRN Reason: Pain, Mild (1-3) Amlodipine Besylate (Norvasc) 5 mg PO DAILY [facility] Last Admin: 06/02/18 10:01 Dose: 5 mg Apixaban (Eliquis) 2.5 mg PO Q12 [facility] Last Admin: 06/02/18 10:01 Dose: 2.5 mg Dextrose (Dextrose 50% Inj) 0 ml IV STAT PRN; Protocol PRN Reason: Hypoglycemia Protocol Dextrose (Glutose 15) 0 gm PO ONCE PRN; Protocol PRN Reason: Hypoglycemia Protocol Famotidine (Pepcid) 20 mg PO DAILY [facility] Last Admin: 06/02/18 10:01 Dose: 20 mg Gabapentin (Neurontin) 100 mg PO BID [facility] Last Admin: 06/02/18 10:01 Dose: 100 mg Glucagon (Glucagen Diagnostic Kit) 0 mg IM STAT PRN; Protocol PRN Reason: Hypoglycemia Protocol Piperacillin Sod/Tazobactam (Sod 2.25 gm/ Sodium Chloride) 50 mls @ 100 mls/hr IV Q6H [facility]; Protocol Last Admin: 06/02/18 13:05 Dose: 100 mls/hr Insulin Human Regular (Novolin R) 0 unit SC [facility]; Protocol Last Admin: 06/02/18 11:53 Dose: 8 units Labetalol HCl (Trandate) 10 mg IV Q6H PRN PRN Reason: Systolic Blood Pressure Last Admin: 05/31/18 02:13 Dose: 10 mg Metoprolol Tartrate (Lopressor) 12.5 mg PO BID [facility] Last Admin: 06/02/18 10:01 Dose: 12.5 mg - Labs Labs: 06/01/18 06:46 06/01/18 06:46 PT 21.8 SECONDS (9.7-12.2) H 05/31/18 05:35 INR 2.0 05/31/18 05:35 APTT 34 SECONDS (21-34) 05/31/18 05:35 - Constitutional Appears: In Acute Distress, Chronically Ill - Head Exam Head Exam: ATRAUMATIC, NORMAL INSPECTION - Eye Exam Eye Exam: EOMI, Normal appearance - ENT Exam ENT Exam: Mucous Membranes Moist - Neck Exam Neck Exam: Full ROM. absent: Lymphadenopathy - Respiratory Exam Respiratory Exam: Clear to Ausculation Bilateral. absent: Accessory Muscle Use - Cardiovascular Exam Cardiovascular Exam: REGULAR RHYTHM. absent: Rubs - GI/Abdominal Exam GI & Abdominal Exam: Distended, Soft, Normal Bowel Sounds. absent: Guarding, Tenderness - Extremities Exam Extremities Exam: Full ROM. absent: Pedal Edema - Neurological Exam Neurological Exam: Alert Assessment and Plan - Assessment and Plan (Free Text) Assessment: dalia due to rhabomyolysis, getting better f/u labs continue AB for bacteremia monitor po, pancreatitis
--- NOTE | 2018-06-02 20:24 | CP.PCM.PN ---
Subjective - Date & Time of Evaluation Date of Evaluation: 06/02/18 Time of Evaluation: 20:22 - Subjective Subjective: Patient now is more awake and responding. He is also more comfortable. But having episodes of tachycardia today. This morning he was more calm, but at times he gets confusion. 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 He denies any chest pain. He denies any shortness of breath. He has a very poor appetite. On examination vital signs stable. But tachycardia noted, atrial flutter present. Chest good air entry regular heart sound nontender abdomen Labs reviewed in Slight elevation of the liver enzymes noted. Sonogram of the abdomen -2 days ago Blood culture positive for beta-hemolytic streptococcus on Zosyn. We will get infectious disease evaluation. CAT scan of the abdomen. We'll repeat the labs tomorrow. Increase metoprolol 50 mg daily. If needed add Cardizem. DVT GI prophylaxis and will follow the patient Objective - Vital Signs/Intake and Output Vital Signs (last 24 hours): Temp Pulse Resp BP Pulse Ox 98.2 F 118 H 18 149/88 97 06/02/18 20:14 06/02/18 20:14 06/02/18 20:14 06/02/18 20:14 06/02/18 20:14 Intake and Output: 06/02/18 06/03/18 18:59 06:59 Intake Total 350 Output Total 875 450 Balance -875 -100 - Medications Medications: Current Medications Acetaminophen (Tylenol 325mg Tab) 650 mg PO Q6 PRN PRN Reason: Pain, Mild (1-3) Apixaban (Eliquis) 2.5 mg PO Q12 [facility] Last Admin: 06/02/18 10:01 Dose: 2.5 mg Dextrose (Dextrose 50% Inj) 0 ml IV STAT PRN; Protocol PRN Reason: Hypoglycemia Protocol Dextrose (Glutose 15) 0 gm PO ONCE PRN; Protocol PRN Reason: Hypoglycemia Protocol Diltiazem HCl (Cardizem) 30 mg PO TID [facility] Famotidine (Pepcid) 20 mg PO DAILY [facility] Last Admin: 06/02/18 10:01 Dose: 20 mg Gabapentin (Neurontin) 100 mg PO BID [facility] Last Admin: 06/02/18 19:02 Dose: 100 mg Glucagon (Glucagen Diagnostic Kit) 0 mg IM STAT PRN; Protocol PRN Reason: Hypoglycemia Protocol Piperacillin Sod/Tazobactam (Sod 2.25 gm/ Sodium Chloride) 50 mls @ 100 mls/hr IV Q6H [facility]; Protocol Last Admin: 06/02/18 19:02 Dose: 100 mls/hr Insulin Glargine (Lantus) 8 unit SC HS [facility] Insulin Human Regular (Novolin R) 0 unit SC ACHS [facility]; Protocol Last Admin: 06/02/18 17:02 Dose: 6 units Metoprolol Tartrate (Lopressor) 50 mg PO BID [facility] - Labs Labs: 06/01/18 06:46 06/01/18 06:46 PT 21.8 SECONDS (9.7-12.2) H 05/31/18 05:35 INR 2.0 05/31/18 05:35 APTT 34 SECONDS (21-34) 05/31/18 05:35
[2018-06-02] MEDS ORDERED: Iohexol 240 (50 ml) PO ONE (20:30)
[2018-06-02] MEDS: (Lantus) Insulin Glargine, Recombinant SC SCH (21:07)
--- NOTE | 2018-06-02 22:23 | CP.PCM.PN ---
Subjective - Date & Time of Evaluation Date of Evaluation: 06/02/18 Time of Evaluation: 22:22 - Subjective Subjective: Patient seen and evaluated Awake and oriented Denies chest pain and dyspnea bacteremia' Rapid A Fib/Flutter May need CARRIE HR control EP consult Objective - Vital Signs/Intake and Output Vital Signs (last 24 hours): Temp Pulse Resp BP Pulse Ox 98.2 F 118 H 18 149/88 97 06/02/18 20:14 06/02/18 20:14 06/02/18 20:14 06/02/18 20:14 06/02/18 20:14 Intake and Output: 06/02/18 06/03/18 18:59 06:59 Intake Total 350 Output Total 875 450 Balance -875 -100 - Medications Medications: Current Medications Acetaminophen (Tylenol 325mg Tab) 650 mg PO Q6 PRN PRN Reason: Pain, Mild (1-3) Apixaban (Eliquis) 2.5 mg PO Q12 [facility] Last Admin: 06/02/18 21:06 Dose: 2.5 mg Dextrose (Dextrose 50% Inj) 0 ml IV STAT PRN; Protocol PRN Reason: Hypoglycemia Protocol Dextrose (Glutose 15) 0 gm PO ONCE PRN; Protocol PRN Reason: Hypoglycemia Protocol Diltiazem HCl (Cardizem) 30 mg PO TID [facility] Last Admin: 06/02/18 20:27 Dose: Not Given Famotidine (Pepcid) 20 mg PO DAILY [facility] Last Admin: 06/02/18 10:01 Dose: 20 mg Gabapentin (Neurontin) 100 mg PO BID [facility] Last Admin: 06/02/18 19:02 Dose: 100 mg Glucagon (Glucagen Diagnostic Kit) 0 mg IM STAT PRN; Protocol PRN Reason: Hypoglycemia Protocol Piperacillin Sod/Tazobactam (Sod 2.25 gm/ Sodium Chloride) 50 mls @ 100 mls/hr IV Q6H [facility]; Protocol Last Admin: 06/02/18 19:02 Dose: 100 mls/hr Insulin Glargine (Lantus) 8 unit SC HS [facility] Last Admin: 06/02/18 21:07 Dose: 8 u Insulin Human Regular (Novolin R) 0 unit SC ACHS [facility]; Protocol Last Admin: 06/02/18 17:02 Dose: 6 units Metoprolol Tartrate (Lopressor) 50 mg PO BID [facility] - Labs Labs: 06/01/18 06:46 06/01/18 06:46 PT 21.8 SECONDS (9.7-12.2) H 05/31/18 05:35 INR 2.0 05/31/18 05:35 APTT 34 SECONDS (21-34) 05/31/18 05:35
[2018-06-03] MEDS: Piperacillin/Tazobact 2.25 GM in Sodium Chloride 0.9% 50 ML IV SCH ×4 (00:59→18:22)
[2018-06-03 07:01] LABS: BASO % 0.2 % (0.0-2.0); EOS # 0.3 K/uL (0.0-0.7); HEMOGLOBIN 13.3 g/dL (12.0-18.0); LYMPH # 1.3 K/uL (1.0-4.3); LYMPH % 9.5 % (20.0-40.0); MEAN CELL VOLUME 95.3 fL (80.0-94.0); MEAN CORPUSCULAR HEMOGLOBIN 32.4 pg (27.0-31.0); MEAN CORPUSCULAR HGB CONC 33.9 g/dL (33.0-37.0); MEAN PLATELET VOLUME 11.4 fL (7.2-11.7); MONO % 6.8 % (0.0-10.0); NEUT # 11.6 K/uL (1.8-7.0); NEUT % 81.5 % (50.0-75.0); PLATELET COUNT 256 K/uL (130-400); RED CELL DISTRIBUTION WIDTH 12.6 % (11.5-14.5); WHITE BLOOD COUNT 14.2 K/uL (4.8-10.8)
[2018-06-03 07:13] LABS: ALB/GLOB RATIO 0.9 (1.0-2.1); ALT/SGPT 130 U/L (21-72); AST/SGOT 63 U/L (17-59); BLOOD UREA NITROGEN 25 mg/dL (9-20); CALCIUM 9.7 mg/dl (8.6-10.4); GFR NON-AFRICAN AMERICAN > 60; LIPASE 231 U/L (23-300)
[2018-06-03] MEDS: (Novolin R) Insulin Human Regular 100 units/ml vial SC SCH ×4 (07:58→21:51)
[2018-06-03 08:45] LABS: BANDS 1 % (0-2); LYMPHOCYTE 10 % (20-40); MONOCYTE 3 % (0-10); MYELOCYTE 1 % (0-0); NEUTROPHIL 85 % (50-75); PLATELET ESTIMATE NORMAL (NORMAL); TOTAL CELLS COUNTED 100
--- NOTE | 2018-06-03 08:45 | CP.PCM.PN ---
Subjective - Date & Time of Evaluation Date of Evaluation: 06/03/18 Time of Evaluation: 08:43 - Subjective Subjective: Feels better MARTHA has resolved Lytes acceptable Still tachy- on increasing doses b-blockers Objective - Vital Signs/Intake and Output Vital Signs (last 24 hours): Temp Pulse Resp BP Pulse Ox 97.6 F 126 H 20 141/72 96 06/03/18 08:00 06/03/18 03:59 06/03/18 03:59 06/03/18 03:59 06/03/18 03:59 Intake and Output: 06/03/18 06/03/18 06:59 18:59 Intake Total 1240 Output Total 1350 Balance -110 - Medications Medications: Current Medications Acetaminophen (Tylenol 325mg Tab) 650 mg PO Q6 PRN PRN Reason: Pain, Mild (1-3) Apixaban (Eliquis) 2.5 mg PO Q12 [facility] Last Admin: 06/02/18 21:06 Dose: 2.5 mg Dextrose (Dextrose 50% Inj) 0 ml IV STAT PRN; Protocol PRN Reason: Hypoglycemia Protocol Dextrose (Glutose 15) 0 gm PO ONCE PRN; Protocol PRN Reason: Hypoglycemia Protocol Diltiazem HCl (Cardizem) 30 mg PO TID [facility] Last Admin: 06/02/18 20:27 Dose: Not Given Famotidine (Pepcid) 20 mg PO DAILY [facility] Last Admin: 06/02/18 10:01 Dose: 20 mg Gabapentin (Neurontin) 100 mg PO BID [facility] Last Admin: 06/02/18 19:02 Dose: 100 mg Glucagon (Glucagen Diagnostic Kit) 0 mg IM STAT PRN; Protocol PRN Reason: Hypoglycemia Protocol Piperacillin Sod/Tazobactam (Sod 2.25 gm/ Sodium Chloride) 50 mls @ 100 mls/hr IV Q6H [facility]; Protocol Last Admin: 06/03/18 07:11 Dose: 100 mls/hr Insulin Glargine (Lantus) 8 unit SC HS [facility] Last Admin: 06/02/18 21:07 Dose: 8 u Insulin Human Regular (Novolin R) 0 unit SC ACHS [facility]; Protocol Last Admin: 06/03/18 07:58 Dose: 8 units Metoprolol Tartrate (Lopressor) 50 mg PO BID [facility] - Labs Labs: 06/03/18 06:35 06/03/18 06:35 PT 21.8 SECONDS (9.7-12.2) H 05/31/18 05:35 INR 2.0 05/31/18 05:35 APTT 34 SECONDS (21-34) 05/31/18 05:35 - Constitutional Appears: No Acute Distress, Chronically Ill - Head Exam Head Exam: ATRAUMATIC, NORMAL INSPECTION - Eye Exam Eye Exam: EOMI, Normal appearance - Neck Exam Neck Exam: Normal Inspection. absent: Tenderness - Respiratory Exam Respiratory Exam: Clear to Ausculation Bilateral, NORMAL BREATHING PATTERN - Cardiovascular Exam Cardiovascular Exam: Tachycardia, +S1 - GI/Abdominal Exam GI & Abdominal Exam: Soft. absent: Tenderness - Extremities Exam Extremities Exam: Normal Inspection. absent: Tenderness - Neurological Exam Neurological Exam: Awake, CN II-XII Intact - Skin Skin Exam: Dry, Warm Assessment and Plan (1) MARTHA (acute kidney injury) Status: Acute (2) Rhabdomyolysis Status: Acute (3) DM type 2 (diabetes mellitus, type 2) Status: Acute (4) Rotator cuff tear Status: Acute (5) Rotator cuff tear Status: Acute - Assessment and Plan (Free Text) Plan: Monitor lytes, renal function Manage tachycardia- as per ICU team
--- NOTE | 2018-06-03 09:22 | RAD ---
Date of service: 06/03/2018 HISTORY: PNA COMPARISON: 05/29/2018 FINDINGS: LUNGS: No dense consolidation. The left infrahilar are call vascular markings appear slightly more focally increased in conspicuity. Here some peribronchial thickening-nonspecific bronchitic process is a consideration. PLEURA: No significant pleural effusion identified, no pneumothorax apparent. CARDIOVASCULAR: There is presence of aortic atherosclerotic calcification on x-ray. Cardiomegaly present-similar OSSEOUS STRUCTURES: Thoracic spondylosis-similar VISUALIZED UPPER ABDOMEN: Normal. OTHER FINDINGS: None. IMPRESSION: Possible interval left infrahilar peribronchial inflammatory like changes-can be seen with bronchitis. Correlate clinically. No more dense consolidation appreciated. Other findings as above. Comments: Study marked for PA review .
--- NOTE | 2018-06-03 12:04 | CT ---
PROCEDURE: CT Abdomen and Pelvis without IV contrast. HISTORY: abd pain high lfts COMPARISON: Abdominal ultrasound performed 05/31/18 TECHNIQUE: Contiguous axial images of the abdomen and pelvis. Oral contrast was administered. No IV contrast given. Coronal and Sagittal reformats generated and reviewed. Radiation dose: Total exam DLP = 1083.68 mGy-cm. This CT exam was performed using one or more of the following dose reduction techniques: Automated exposure control, adjustment of the mA and/or kV according to patient size, and/or use of iterative reconstruction technique. FINDINGS: There is limited evaluation of the solid organs without the administration of IV contrast. LOWER THORAX: Mild bibasilar atelectasis. No visible pleural effusion or pneumothorax. Visualized portions of the heart appear within normal limits of size. Small hiatal hernia/distal esophageal wall thickening. Mild gastroesophageal reflux. LIVER: Unremarkable. GALLBLADDER AND BILE DUCTS: Unremarkable. PANCREAS: Fatty atrophy. SPLEEN: Unremarkable. ADRENALS: Unremarkable. KIDNEYS AND URETERS: No hydronephrosis or obstructing renal calculus. 2 left renal cysts, largest at the left upper pole measuring 6.9 cm. BLADDER: The urinary bladder appears unremarkable. REPRODUCTIVE: The prostate gland measures approximately 5.0 x 6.3 cm. APPENDIX: The appendix appears within normal limits of caliber. No secondary signs of acute appendicitis. BOWEL: The stomach is nondistended. The bowel loops appear within normal limits of caliber without evidence of intestinal obstruction. Moderate to large retained colonic fecal material. PERITONEUM: No significant free fluid. No definite free air. LYMPH NODES: No bulky lymphadenopathy identified. VASCULATURE: Atherosclerotic calcifications of the aorta and branches. No aortic aneurysm. BONES: Osseous demineralization. Degenerative changes. OTHER FINDINGS: None. IMPRESSION: 2 left renal cysts, largest at the left upper pole measuring 6.9 cm. The prostate gland measures approximately 5.0 x 6.3 cm. Recommend correlation with PSA. Moderate to severe constipation. Preliminary impression was provided by [employer]
--- NOTE | 2018-06-03 12:11 | CP.PCM.CON ---
History of Present Illness - History of Present Illness History of Present Illness: ASked to see for elev LFTs. Pt was admitted 05/30/18 with confusion,. Lipase was elevated. LFTs are mildly elevated. Also with rhabdomyalys Now less confused. Denies ETOH, abdom pain. Meds- noted Review of Systems - Constitutional Constitutional: Weakness. absent: Fever, Weight Gain, Weight Loss - EENT Eyes: absent: Photophobia - Cardiovascular Cardiovascular: absent: Chest Pain, Chest Pain at Rest, Palpitations - Respiratory Respiratory: absent: Hemoptysis, Wheezing - Gastrointestinal Gastrointestinal: absent: Abdominal Pain, Constipation, Diarrhea, Hematemesis, Hematochezia, Loose Stools, Melena, Nausea, Vomiting - Genitourinary Genitourinary: absent: Hematuria - Musculoskeletal Musculoskeletal: absent: Muscle Cramps, Muscle Weakness - Integumentary Integumentary: absent: Pruritus, Jaundice - Neurological Neurological: Confusion, Weakness - Psychiatric Psychiatric: Visual Hallucinations Past Patient History - Infectious Disease Hx of Infectious Diseases: None - Past Medical History & Family History Past Medical History?: Yes Past Family History: Reviewed and not pertinent - Past Social History Smoking Status: Former Smoker Chewing Tobacco Use: No Cigar Use: No Alcohol: None Drugs: Denies - CARDIAC Hx Cardia Arrhythmia: Yes (a flutter) Hx Hypercholesterolemia: Yes Hx Hypertension: Yes - PULMONARY Hx Respiratory Disorders: No - NEUROLOGICAL Hx Neurological Disorder: No - HEENT Other/Comment: wears glasses - RENAL Hx Chronic Kidney Disease: Yes - ENDOCRINE/METABOLIC Hx Diabetes Mellitus Type 2: Yes - INTEGUMENTARY Hx Dermatological Problems: No - MUSCULOSKELETAL/RHEUMATOLOGICAL Hx Falls: Yes - GASTROINTESTINAL Hx Gastrointestinal Disorders: No - GENITOURINARY/GYNECOLOGICAL Hx Prostate Problems: Yes (BPH) - PSYCHIATRIC Hx Substance Use: Yes - SURGICAL HISTORY Hx Surgeries: Yes (cannot recall all surgeries) Other/Comment: cardiac ablation - ANESTHESIA Hx Anesthesia: Yes (cannot recall what procdure he had that involved anesthesia) Hx Anesthesia Reactions: No Hx Malignant Hyperthermia: No Meds Allergies/Adverse Reactions: Allergies Allergy/AdvReac Type Severity Reaction Status Date / Time No Known Allergies Allergy Verified 05/28/18 03:21 - Medications Medications: Current Medications Acetaminophen (Tylenol 325mg Tab) 650 mg PO Q6 PRN PRN Reason: Pain, Mild (1-3) Apixaban (Eliquis) 2.5 mg PO Q12 JOHN Last Admin: 06/03/18 10:05 Dose: 2.5 mg Dextrose (Dextrose 50% Inj) 0 ml IV STAT PRN; Protocol PRN Reason: Hypoglycemia Protocol Dextrose (Glutose 15) 0 gm PO ONCE PRN; Protocol PRN Reason: Hypoglycemia Protocol Diltiazem HCl (Cardizem) 30 mg PO TID [facility] Last Admin: 06/02/18 20:27 Dose: Not Given Famotidine (Pepcid) 20 mg PO DAILY [facility] Last Admin: 06/03/18 10:05 Dose: 20 mg Gabapentin (Neurontin) 100 mg PO BID [facility] Last Admin: 06/03/18 10:05 Dose: 100 mg Glucagon (Glucagen Diagnostic Kit) 0 mg IM STAT PRN; Protocol PRN Reason: Hypoglycemia Protocol Piperacillin Sod/Tazobactam (Sod 2.25 gm/ Sodium Chloride) 50 mls @ 100 mls/hr IV Q6H [facility]; Protocol Last Admin: 06/03/18 07:11 Dose: 100 mls/hr Insulin Glargine (Lantus) 8 unit SC HS [facility] Last Admin: 06/02/18 21:07 Dose: 8 u Insulin Human Regular (Novolin R) 0 unit SC ACHS [facility]; Protocol Last Admin: 06/03/18 07:58 Dose: 8 units Metoprolol Tartrate (Lopressor) 50 mg PO BID [facility] Last Admin: 06/03/18 10:05 Dose: 50 mg Physical Exam - Constitutional Appears: Non-toxic - Respiratory Exam Respiratory Exam: Clear to Auscultation Bilateral - Cardiovascular Exam Cardiovascular Exam: absent: REGULAR RHYTHM - GI/Abdominal Exam GI & Abdominal Exam: Normal Bowel Sounds, Soft. absent: Guarding, Mass, Rebound, Tenderness - Neurological Exam Neurological exam: Alert, Oriented x3 Results - Vital Signs Recent Vital Signs: Last Vital Signs Temp 97.6 F 06/03/18 08:00 Pulse 126 H 06/03/18 03:59 Resp 20 06/03/18 03:59 BP 141/72 06/03/18 03:59 Pulse Ox 96 06/03/18 03:59 - Labs Result Diagrams: 06/03/18 06:35 06/03/18 06:35 Labs: Laboratory Results - last 24 hr 05/31/18 06/02/18 06/03/18 05:37 17:44 00:09 WBC RBC Hgb Hct MCV MCH MCHC RDW Plt Count MPV Neut % (Auto) Lymph % (Auto) [place] % (Auto) Eos % (Auto) Baso % (Auto) Neut # (Auto) Lymph # (Auto) [place] # (Auto) Eos # (Auto) Baso # (Auto) Neutrophils % (Manual) Band Neutrophils % Lymphocytes % (Manual) Monocytes % (Manual) Myelocytes % Platelet Estimate Sodium Potassium Chloride Carbon Dioxide Anion Gap BUN Creatinine Est GFR ( Amer) Est GFR (Non-Af Amer) POC Glucose (mg/dL) 308 H 218 H Random Glucose Calcium Phosphorus Magnesium Total Bilirubin AST ALT Alkaline Phosphatase Total Creatine Kinase Total Protein Albumin Globulin Albumin/Globulin Ratio Lipase Urine Myoglobin 132 H 06/03/18 06/03/18 06/03/18 06:35 06:35 07:26 WBC 14.2 H RBC 4.10 L Hgb 13.3 Hct 39.1 MCV 95.3 H MCH 32.4 H MCHC 33.9 RDW 12.6 Plt Count 256 MPV 11.4 Neut % (Auto) 81.5 H Lymph % (Auto) 9.5 L [place] % (Auto) 6.8 Eos % (Auto) 2.0 Baso % (Auto) 0.2 Neut # (Auto) 11.6 H Lymph # (Auto) 1.3 [place] # (Auto) 1.0 H Eos # (Auto) 0.3 Baso # (Auto) 0.0 Neutrophils % (Manual) 85 H Band Neutrophils % 1 Lymphocytes % (Manual) 10 L Monocytes % (Manual) 3 Myelocytes % 1 H Platelet Estimate Normal Sodium 134 Potassium 4.0 Chloride 101 Carbon Dioxide 20 L Anion Gap 17 BUN 25 H Creatinine 1.1 Est GFR ( Amer) > 60 Est GFR (Non-Af Amer) > 60 POC Glucose (mg/dL) 381 H Random Glucose 292 H Calcium 9.7 Phosphorus 3.3 Magnesium 1.8 Total Bilirubin 0.9 AST 63 H D ALT 130 H D Alkaline Phosphatase 192 H D Total Creatine Kinase 47 L Total Protein 6.3 Albumin 3.0 L Globulin 3.4 Albumin/Globulin Ratio 0.9 L Lipase 231 Urine Myoglobin Assessment & Plan (1) Abnormal LFTs Assessment and Plan: likley related to rhabdomy. Consider pancreatitis. Pt denies abdom pain, etoh. Sono abd is noted. Check CT abd Status: Acute (2) DM type 2 (diabetes mellitus, type 2) Status: Acute (3) Pancreatitis Assessment and Plan: elev lipase om admission. Now bettter. Consider meds.. Doubt CBD stone. Check CT. Follow labs. Check hepat profile Status: Acute (4) Renal insufficiency Status: Acute (5) Rotator cuff tear Status: Acute (6) Atrial flutter Status: Acute (7) General weakness Status: Acute (8) UTI (urinary tract infection), bacterial Status: Acute
[2018-06-03 12:40] LABS: SQUAMOUS EPITHIAL 1 /hpf (0-5); URINE BACTERIA RARE (<OCC); URINE BILIRUBIN NEGATIVE (NEGATIVE); URINE BLOOD 3+ (NEGATIVE); URINE CLARITY Clear (Clear); URINE COLOR Yellow (YELLOW); URINE GLUCOSE (UA) 3+ mg/dL (Normal); URINE LEUKOCYTE ESTERASE 1+ Leu/uL (Negative); URINE PROTEIN 1+ mg/dL (NEGATIVE); URINE UROBILINOGEN NORMAL mg/dL (0.2-1.0)
--- NOTE | 2018-06-03 20:32 | CP.PCM.CON ---
History of Present Illness - History of Present Illness History of Present Illness: 82-year-old male fell few days ago, suffered rhabdomyolysis, MARTHA. Referred for ID eval of sepsis bacteremia - Gr B strep in blood - Medical History PMH: Benign Prostatic Hyperplasia, Cardia Arrhythmia (a flutter), Fractures (right hip 1970), HTN, Hypercholesterolemia, Chronic Kidney Disease Past medical history: Diabetes, takes insulin, BPH, high cholesterol, hyperlipidemia, hypertension, a trial fibrillation, status post cardioversion in the past also leg edema in the past Current medications reviewed Surgical history none Family history mother at the age of 90, father also in their old age. Siblings no medical history noted - [facility] Procedures ATRIAL CARDIOVERSION (12/26/13) DX ULTRASOUND-HEART (12/26/13) Review of Systems - Review of Systems Systems not reviewed;Unavailable: Altered Mental Status All systems: reviewed and no additional remarkable complaints except - Constitutional Constitutional: As Per HPI - EENT Eyes: absent: As Per HPI, Blind Spots, Blurred Vision, Change in Vision, Decreased Night Vision, Diplopia, Discharge, Dry Eye, Exophthalmos, Floaters, I rritation, Itchy Eyes, Loss of Peripheral Vision, Pain, Photophobia, Requires Corrective Lenses, Sees Flashes, Spots in Vision, Tunnel Vision, Other Visual Disturbances, Loss of Vision, Other Ears: absent: As Per HPI, Decreased Hearing, Ear Discharge, Ear Pain, Tinnitus, Abnormal Hearing, Disequilibrium, Dizziness, Other Nose/Mouth/Throat: absent: As Per HPI, Epistaxis, Nasal Congestion, Nasal Discharge, Nasal Obstruction, Nasal Trauma, Nose Pain, Post Nasal Drip, Sinus Pain, Sinus Pressure, Bleeding Gums, Change in Voice, Dental Pain, Dry Mouth, Dysphagia, Halitosis, Hoarsness, Lip Swelling, Mouth Lesions, Mouth Pain, Odynophagia, Sore Throat, Throat Swelling, Tongue Swelling, Facial Pain, Neck Pain, Neck Mass, Other - Cardiovascular Cardiovascular: absent: As Per HPI, Acrocyanosis, Chest Pain, Chest Pain at Rest, Chest Pain with Activity, Claudication, Diaphoresis, Dyspnea, Dyspnea on Exertion, Edema, Irregular Heart Rhythm, Pain Radiating to Arm/Neck/Jaw, Leg Edema, Leg Ulcers, Lightheadedness, Orthopnea, Palpitations, Paroxysmal Nocturnal Dyspnea, Pedal Edema, Radiating Pain, Rapid Heart Rate, Slow Heart Rate, Syncope, Other - Respiratory Respiratory: absent: As Per HPI, Cough, Dyspnea, Hemoptysis, Dyspnea on Exertion, Wheezing, Snoring, Stridor, Pain on Inspiration, Chest Congestion, Excessive Mucous Production, Change in Mucous Color, Pain with Coughing, Other - Gastrointestinal Gastrointestinal: absent: As Per HPI, Abdominal Pain, Belching, Bloating, Change in Bowel Habits, Change in Stool Character, Coffee Ground Emesis, Constipation, Cramping, Diarrhea, Dyspepsia, Dysphagia, Early Satiety, Excessive Flatus, Fecal Incontinence, Heartburn, Hematemesis, Hematochezia, Loose Stools, Melena, Nausea, Odynophagia, Temesmus, Vomiting, Other - Genitourinary Genitourinary: absent: As Per HPI, Change in Urinary Stream, Difficulty Urinating, Dysuria, Flank Pain, Hematuria, Pyuria, Nocturia, Urinary Incontinence, Urinary Frequency, Urinary Hesitance, Urinary Urgency, Voiding Freq/Small Amts, Freq UTI, Hx Renal/Bladder Calculi, Hx /Renal Surgery, Bladder Distension, Other - Musculoskeletal Musculoskeletal: absent: As Per HPI, Abnormal Gait, Arthralgias, Atrophy, Back Pain, Deformity, Joint Swelling, Limited Range of Motion, Loss of Height, Muscle Cramps, Muscle Weakness, Myalgias, Neck Pain, Numbness, Radiating Pain into Limb, Stiffness, Tingling, Other - Integumentary Integumentary: absent: As Per HPI, Acne, Alopecia, Bleeding Lesions, Change in Hair, Change in Nails, Change in Pigmentation, Changing Lesions, Dry Skin, Erythema, Furuncle, Hirsutism, Lesions, New Lesions, Non-Healing Lesions, Photosensitivity, Pruritus, Rash, Skin Pain, Skin Ulcer, Sores, Striae, Swelling , Unusual Bruising, Wounds, Jaundice, Other - Neurological Neurological: absent: As Per HPI, Abnormal Gait, Abnormal Hearing, Abnormal Movements, Abnormal Speech, Behavioral Changes, Burning Sensations, Confusion, Convulsions, Disequilibrium, Dizziness, Numbness, Focal Weakness, Frequent Falls, Headaches, Lack of Coordination, Loss of Vision, Memory Loss, Par esthesias, Radicular Pain, Restless Legs, Sensory Deficit, Syncope, Tingling, Tremor, Vertigo, Weakness, Other Visual Disturbances, Other - Psychiatric Psychiatric: absent: As Per HPI, Abnormal Sleep Pattern, Anhedonia, Anxiety, Auditory Hallucinations, Behavioral Changes, Change in Appetite, Change in Libido, Confusion, Depression, Difficulty Concentrating, Hallucinations, Homicidal Ideation, Hopelessness, Irritability, Memory Loss, Mood Swings, Panic Attacks, Paranoia, Suicidal Ideation, Visual Hallucinations, Tactile Hallucinations, Other - Endocrine Endocrine: absent: As Per HPI, Change in Body Appearance, Change in Libido, Cold Intolorance, Deepening of Voice, Excessive Sweating, Fatigue, Flushing, Heat Intolorance, Increase in Ring/Shoe/Hat Size, Palpitations, Polydipsia, Polyphagia, Polyuria, Other - Hematologic/Lymphatic Hematologic: absent: As Per HPI, Easy Bleeding, Easy Bruising, Lymphadenopathy, Other Past Patient History - Infectious Disease Hx of Infectious Diseases: None - Past Medical History & Family History Past Medical History?: Yes Past Family History: Reviewed and not pertinent - Past Social History Smoking Status: Former Smoker Chewing Tobacco Use: No Cigar Use: No Alcohol: None Drugs: Denies - CARDIAC Hx Hypercholesterolemia: Yes Hx Hypertension: Yes - PULMONARY Hx Respiratory Disorders: No - NEUROLOGICAL Hx Neurological Disorder: No - HEENT Other/Comment: wears glasses - RENAL Hx Chronic Kidney Disease: Yes - ENDOCRINE/METABOLIC Hx Diabetes Mellitus Type 2: Yes - INTEGUMENTARY Hx Dermatological Problems: No - MUSCULOSKELETAL/RHEUMATOLOGICAL Hx Falls: Yes - GASTROINTESTINAL Hx Gastrointestinal Disorders: No - GENITOURINARY/GYNECOLOGICAL Hx Prostate Problems: Yes (BPH) - PSYCHIATRIC Hx Substance Use: Yes - SURGICAL HISTORY Hx Surgeries: Yes (cannot recall all surgeries) Other/Comment: cardiac ablation - ANESTHESIA Hx Anesthesia: Yes (cannot recall what procdure he had that involved anesthesia) Hx Anesthesia Reactions: No Hx Malignant Hyperthermia: No Meds Allergies/Adverse Reactions: Allergies Allergy/AdvReac Type Severity Reaction Status Date / Time No Known Allergies Allergy Verified 05/28/18 03:21 - Medications Medications: Current Medications Acetaminophen (Tylenol 325mg Tab) 650 mg PO Q6 PRN PRN Reason: Pain, Mild (1-3) Apixaban (Eliquis) 2.5 mg PO Q12 JOHN Last Admin: 06/03/18 10:05 Dose: 2.5 mg Dextrose (Dextrose 50% Inj) 0 ml IV STAT PRN; Protocol PRN Reason: Hypoglycemia Protocol Dextrose (Glutose 15) 0 gm PO ONCE PRN; Protocol PRN Reason: Hypoglycemia Protocol Diltiazem HCl (Cardizem) 30 mg PO TID [facility] Last Admin: 06/02/18 20:27 Dose: Not Given Docusate Sodium (Colace) 100 mg PO BID [facility] Last Admin: 06/03/18 17:05 Dose: 100 mg Famotidine (Pepcid) 20 mg PO DAILY [facility] Last Admin: 06/03/18 10:05 Dose: 20 mg Gabapentin (Neurontin) 100 mg PO BID [facility] Last Admin: 06/03/18 17:06 Dose: 100 mg Glucagon (Glucagen Diagnostic Kit) 0 mg IM STAT PRN; Protocol PRN Reason: Hypoglycemia Protocol Piperacillin Sod/Tazobactam (Sod 2.25 gm/ Sodium Chloride) 50 mls @ 100 mls/hr IV Q6H [facility]; Protocol Last Admin: 06/03/18 18:22 Dose: 100 mls/hr Insulin Glargine (Lantus) 8 unit SC HS [facility] Last Admin: 06/02/18 21:07 Dose: 8 u Insulin Human Regular (Novolin R) 0 unit SC ACHS [facility]; Protocol Last Admin: 06/03/18 17:06 Dose: 4 units Metoprolol Tartrate (Lopressor) 50 mg PO BID [facility] Last Admin: 06/03/18 17:05 Dose: 50 mg Polyethylene Glycol (Miralax) 17 gm PO DAILY [facility] Physical Exam - Constitutional Appears: Toxic, Confused, Chronically Ill - Head Exam Head Exam: ATRAUMATIC, NORMOCEPHALIC - Eye Exam Eye Exam: PERRL. absent: Scleral icterus - ENT Exam ENT Exam: Mucous Membranes Dry - Neck Exam Neck exam: Negative for: Lymphadenopathy - Respiratory Exam Respiratory Exam: Decreased Breath Sounds, Clear to Auscultation Bilateral, Prolonged Expiratory Phase - Cardiovascular Exam Cardiovascular Exam: REGULAR RHYTHM, +S1, +S2 - GI/Abdominal Exam GI & Abdominal Exam: Diminished Bowel Sounds, Soft. absent: Tenderness - Rectal Exam Rectal Exam: Deferred - Exam Exam: NORMAL INSPECTION - Extremities Exam Extremities exam: Positive for: pedal edema, pedal pulses present. Negative for: calf tenderness, tenderness - Back Exam Back exam: absent: CVA tenderness (L), CVA tenderness (R), paraspinal tenderness - Neurological Exam Neurological exam: Alert, CN II-XII Intact, Oriented x3, Reflexes Normal - Psychiatric Exam Psychiatric exam: Depressed - Skin Skin Exam: Dry Results - Vital Signs Recent Vital Signs: Last Vital Signs Temp 97.5 F L 06/03/18 16:00 Pulse 92 H 06/03/18 16:00 Resp 16 06/03/18 16:00 BP 126/67 06/03/18 16:00 Pulse Ox 95 06/03/18 12:00 - Labs Result Diagrams: 06/03/18 06:35 06/03/18 06:35 Labs: Laboratory Results - last 24 hr 06/03/18 06/03/18 06/03/18 00:09 06:35 06:35 WBC 14.2 H RBC 4.10 L Hgb 13.3 Hct 39.1 MCV 95.3 H MCH 32.4 H MCHC 33.9 RDW 12.6 Plt Count 256 MPV 11.4 Neut % (Auto) 81.5 H Lymph % (Auto) 9.5 L [place] % (Auto) 6.8 Eos % (Auto) 2.0 Baso % (Auto) 0.2 Neut # (Auto) 11.6 H Lymph # (Auto) 1.3 [place] # (Auto) 1.0 H Eos # (Auto) 0.3 Baso # (Auto) 0.0 Neutrophils % (Manual) 85 H Band Neutrophils % 1 Lymphocytes % (Manual) 10 L Monocytes % (Manual) 3 Myelocytes % 1 H Platelet Estimate Normal Sodium 134 Potassium 4.0 Chloride 101 Carbon Dioxide 20 L Anion Gap 17 BUN 25 H Creatinine 1.1 Est GFR ( Amer) > 60 Est GFR (Non-Af Amer) > 60 POC Glucose (mg/dL) 218 H Random Glucose 292 H Calcium 9.7 Phosphorus 3.3 Magnesium 1.8 Total Bilirubin 0.9 AST 63 H D ALT 130 H D Alkaline Phosphatase 192 H D Total Creatine Kinase 47 L Total Protein 6.3 Albumin 3.0 L Globulin 3.4 Albumin/Globulin Ratio 0.9 L Lipase 231 Urine Color Urine Clarity Urine pH Ur Specific [place] Urine Protein Urine Glucose (UA) Urine Ketones Urine Blood Urine Nitrate Urine Bilirubin Urine Urobilinogen Ur Leukocyte Esterase Urine WBC (Auto) Urine RBC (Auto) Ur Squamous Epith Cells Urine Bacteria 06/03/18 06/03/18 06/03/18 07:26 11:42 12:23 WBC RBC Hgb Hct MCV MCH MCHC RDW Plt Count MPV Neut % (Auto) Lymph % (Auto) [place] % (Auto) Eos % (Auto) Baso % (Auto) Neut # (Auto) Lymph # (Auto) [place] # (Auto) Eos # (Auto) Baso # (Auto) Neutrophils % (Manual) Band Neutrophils % Lymphocytes % (Manual) Monocytes % (Manual) Myelocytes % Platelet Estimate Sodium Potassium Chloride Carbon Dioxide Anion Gap BUN Creatinine Est GFR ( Amer) Est GFR (Non-Af Amer) POC Glucose (mg/dL) 381 H 341 H Random Glucose Calcium Phosphorus Magnesium Total Bilirubin AST ALT Alkaline Phosphatase Total Creatine Kinase Total Protein Albumin Globulin Albumin/Globulin Ratio Lipase Urine Color Yellow Urine Clarity Clear Urine pH 5.0 Ur Specific [place] 1.024 Urine Protein 1+ H Urine Glucose (UA) 3+ H Urine Ketones 1+ H Urine Blood 3+ H Urine Nitrate Negative Urine Bilirubin Negative Urine Urobilinogen Normal Ur Leukocyte Esterase 1+ H Urine WBC (Auto) 11 H Urine RBC (Auto) 9 H Ur Squamous Epith Cells 1 Urine Bacteria Rare 06/03/18 16:04 WBC RBC Hgb Hct MCV MCH MCHC RDW Plt Count MPV Neut % (Auto) Lymph % (Auto) [place] % (Auto) Eos % (Auto) Baso % (Auto) Neut # (Auto) Lymph # (Auto) [place] # (Auto) Eos # (Auto) Baso # (Auto) Neutrophils % (Manual) Band Neutrophils % Lymphocytes % (Manual) Monocytes % (Manual) Myelocytes % Platelet Estimate Sodium Potassium Chloride Carbon Dioxide Anion Gap BUN Creatinine Est GFR ( Amer) Est GFR (Non-Af Amer) POC Glucose (mg/dL) 265 H Random Glucose Calcium Phosphorus Magnesium Total Bilirubin AST ALT Alkaline Phosphatase Total Creatine Kinase Total Protein Albumin Globulin Albumin/Globulin Ratio Lipase Urine Color Urine Clarity Urine pH Ur Specific [place] Urine Protein Urine Glucose (UA) Urine Ketones Urine Blood Urine Nitrate Urine Bilirubin Urine Urobilinogen Ur Leukocyte Esterase Urine WBC (Auto) Urine RBC (Auto) Ur Squamous Epith Cells Urine Bacteria Assessment & Plan (1) Bacteremia Status: Acute (2) Sepsis Status: Acute (3) Group B streptococcal infection Status: Acute (4) MARTHA (acute kidney injury) Status: Acute (5) Abnormal LFTs Status: Acute (6) DM type 2 (diabetes mellitus, type 2) Status: Acute (7) Leukocytosis Status: Acute (8) Rhabdomyolysis Status: Acute (9) Rotator cuff tear Status: Acute (10) Congestive heart failure Status: Acute (11) UTI (urinary tract infection), bacterial Status: Acute - Assessment and Plan (Free Text) Assessment: consider CARRIE to r/o endocarditis cont iv antibiotics min 14 days to discuss with dr Murphy
[2018-06-03] MEDS: (Lantus) Insulin Glargine, Recombinant SC SCH (21:52)
--- NOTE | 2018-06-03 23:54 | CP.PCM.PN ---
Subjective - Date & Time of Evaluation Date of Evaluation: 06/03/18 Time of Evaluation: 16:20 - Subjective Subjective: Patient seen and evaluated For CARRIE in am r/o Endocarditis Objective - Vital Signs/Intake and Output Vital Signs (last 24 hours): Temp Pulse Resp BP Pulse Ox 98.1 F 81 12 121/56 L 95 06/03/18 20:00 06/03/18 20:00 06/03/18 20:00 06/03/18 20:00 06/03/18 12:00 Intake and Output: 06/03/18 06/04/18 18:59 06:59 Intake Total 700 200 Output Total 700 200 Balance 0 0 - Medications Medications: Current Medications Acetaminophen (Tylenol 325mg Tab) 650 mg PO Q6 PRN PRN Reason: Pain, Mild (1-3) Apixaban (Eliquis) 2.5 mg PO Q12 [facility] Last Admin: 06/03/18 21:52 Dose: 2.5 mg Dextrose (Dextrose 50% Inj) 0 ml IV STAT PRN; Protocol PRN Reason: Hypoglycemia Protocol Dextrose (Glutose 15) 0 gm PO ONCE PRN; Protocol PRN Reason: Hypoglycemia Protocol Diltiazem HCl (Cardizem) 30 mg PO TID [facility] Last Admin: 06/02/18 20:27 Dose: Not Given Docusate Sodium (Colace) 100 mg PO BID [facility] Last Admin: 06/03/18 17:05 Dose: 100 mg Famotidine (Pepcid) 20 mg PO DAILY [facility] Last Admin: 06/03/18 10:05 Dose: 20 mg Gabapentin (Neurontin) 100 mg PO BID [facility] Last Admin: 06/03/18 17:06 Dose: 100 mg Glucagon (Glucagen Diagnostic Kit) 0 mg IM STAT PRN; Protocol PRN Reason: Hypoglycemia Protocol Piperacillin Sod/Tazobactam (Sod 2.25 gm/ Sodium Chloride) 50 mls @ 100 mls/hr IV Q6H [facility]; Protocol Last Admin: 06/03/18 18:22 Dose: 100 mls/hr Insulin Glargine (Lantus) 8 unit SC HS [facility] Last Admin: 06/03/18 21:52 Dose: 8 u Insulin Human Regular (Novolin R) 0 unit SC ACHS [facility]; Protocol Last Admin: 06/03/18 21:51 Dose: Not Given Metoprolol Tartrate (Lopressor) 50 mg PO BID [facility] Last Admin: 06/03/18 17:05 Dose: 50 mg Polyethylene Glycol (Miralax) 17 gm PO DAILY [facility] - Labs Labs: 06/03/18 06:35 06/03/18 06:35 PT 21.8 SECONDS (9.7-12.2) H 05/31/18 05:35 INR 2.0 05/31/18 05:35 APTT 34 SECONDS (21-34) 05/31/18 05:35
[2018-06-04] MEDS: Piperacillin/Tazobact 2.25 GM in Sodium Chloride 0.9% 50 ML IV SCH ×4 (00:43→18:26)
[2018-06-04 06:43] LABS: ALB/GLOB RATIO 0.9 (1.0-2.1); ALBUMIN 3.1 g/dL (3.5-5.0); ALT/SGPT 120 U/L (21-72); AST/SGOT 75 U/L (17-59); BLOOD UREA NITROGEN 22 mg/dL (9-20); CALCIUM 9.8 mg/dl (8.6-10.4); GFR NON-AFRICAN AMERICAN > 60; HDL CHOLESTEROL 16 mg/dL (30-70)
[2018-06-04 06:53] LABS: LDL CHOLESTEROL 73 mg/dL (0-129)
[2018-06-04 07:15] LABS: HEPATITIS B SURFACE AG Negative (NEGATIVE)
[2018-06-04 07:21] LABS: HEPATITIS A IGM NEGATIVE (NEGATIVE); HEPATITIS B CORE AB NEGATIVE (NEGATIVE)
[2018-06-04] MEDS: (Novolin R) Insulin Human Regular 100 units/ml vial SC SCH ×4 (07:30→22:11)
[2018-06-04 07:33] LABS: HEPATITIS C ANTIBODY NEGATIVE (NEGATIVE)
--- NOTE | 2018-06-04 09:52 | CP.PCM.PN ---
Subjective - Date & Time of Evaluation Date of Evaluation: 06/04/18 Time of Evaluation: 09:49 - Subjective Subjective: F/U LFTs Feels well. Denies abdominal pain. Denies prior history of liver disease. Going for CARRIE today. Strep bacteremia LFTs unchanged today Objective - Vital Signs/Intake and Output Vital Signs (last 24 hours): Temp Pulse Resp BP Pulse Ox 98.0 F 94 H 18 128/70 95 06/04/18 08:00 06/04/18 08:00 06/04/18 08:00 06/04/18 04:00 06/03/18 12:00 Intake and Output: 06/04/18 06/04/18 06:59 18:59 Intake Total 300 Output Total 600 Balance -300 - Medications Medications: Current Medications Acetaminophen (Tylenol 325mg Tab) 650 mg PO Q6 PRN PRN Reason: Pain, Mild (1-3) Apixaban (Eliquis) 2.5 mg PO Q12 [facility] Last Admin: 06/03/18 21:52 Dose: 2.5 mg Dextrose (Dextrose 50% Inj) 0 ml IV STAT PRN; Protocol PRN Reason: Hypoglycemia Protocol Dextrose (Glutose 15) 0 gm PO ONCE PRN; Protocol PRN Reason: Hypoglycemia Protocol Diltiazem HCl (Cardizem) 30 mg PO TID [facility] Last Admin: 06/02/18 20:27 Dose: Not Given Docusate Sodium (Colace) 100 mg PO BID [facility] Last Admin: 06/03/18 17:05 Dose: 100 mg Famotidine (Pepcid) 20 mg PO DAILY [facility] Last Admin: 06/03/18 10:05 Dose: 20 mg Gabapentin (Neurontin) 100 mg PO BID [facility] Last Admin: 06/03/18 17:06 Dose: 100 mg Glucagon (Glucagen Diagnostic Kit) 0 mg IM STAT PRN; Protocol PRN Reason: Hypoglycemia Protocol Piperacillin Sod/Tazobactam (Sod 2.25 gm/ Sodium Chloride) 50 mls @ 100 mls/hr IV Q6H [facility]; Protocol Last Admin: 06/04/18 06:29 Dose: 100 mls/hr Insulin Glargine (Lantus) 8 unit SC HS [facility] Last Admin: 06/03/18 21:52 Dose: 8 u Insulin Human Regular (Novolin R) 0 unit SC [facility]; Protocol Last Admin: 06/04/18 07:30 Dose: Not Given Metoprolol Tartrate (Lopressor) 50 mg PO BID [facility] Last Admin: 06/03/18 17:05 Dose: 50 mg Polyethylene Glycol (Miralax) 17 gm PO DAILY [facility] - Labs Labs: 06/03/18 06:35 06/04/18 06:19 PT 21.8 SECONDS (9.7-12.2) H 05/31/18 05:35 INR 2.0 05/31/18 05:35 APTT 34 SECONDS (21-34) 05/31/18 05:35 - Constitutional Appears: No Acute Distress - Head Exam Head Exam: NORMOCEPHALIC - Eye Exam Eye Exam: absent: Scleral icterus - Respiratory Exam Respiratory Exam: Clear to Ausculation Bilateral - Cardiovascular Exam Cardiovascular Exam: REGULAR RHYTHM - GI/Abdominal Exam GI & Abdominal Exam: Soft. absent: Tenderness, Organomegaly - Neurological Exam Neurological Exam: Alert, Awake, Oriented x3 Assessment and Plan (1) Abnormal LFTs Assessment & Plan: Likely mutifactorial: drug induced, bacteremia Hep profile negative Would monitor LFTs, anticipate full recovery Status: Acute (2) Bacteremia Assessment & Plan: Strep bacteremia Followed by ID Going for CARRIE Status: Acute (3) DM type 2 (diabetes mellitus, type 2) Status: Acute (4) Drug overdose Assessment & Plan: Prescription narcotic OD. Rhabdomyalysis Status: Acute (5) Pancreatitis Assessment & Plan: Initially with elevated Lipase, sono and CT show normal pancreas. No clinical symptoms of pancreatitis at present May eat Status: Acute
[2018-06-04] MEDS ORDERED: Propofol 10 mg/ml Inj (20 ML) ONE ×2 (10:43)
[2018-06-04] MEDS: POLYETHYLENE GLYCOL 3350 17 GM/Dose PACKET PO SCH (11:59)
--- NOTE | 2018-06-04 12:36 | EEG ---
DATE: 05/31/2018 This is a 16-channel electroencephalogram of awake and drowsy adult. During the study, photic stimulation was performed. Hyperventilation was not performed. The progressing electroencephalogram consists of 20 to 30 microvolt diffuse 6-7 Hz high theta activity seen at posterior dominant rhythm. Anterior fast activity superimposed with a 2 to 3 Hz delta activities seen at leads. Eye movement as well as muscle artifact contaminated the rhythm intermittently. The photic stimulation did not evoke driving response noted at 2 to 20 Hz. IMPRESSION: This is an abnormal electroencephalogram because of persistent slowing throughout the record suggestive of bilateral cerebral dysfunction. This is probably secondary to metabolic, vascular, or degenerative process. Please correlate the findings with the neurological and radiological studies. Hernán Molina MD
--- NOTE | 2018-06-04 13:09 | CP.PCM.PN ---
Subjective - Date & Time of Evaluation Date of Evaluation: 06/04/18 Time of Evaluation: 13:05 - Subjective Subjective: Alert, no nnew complaint labs reviewed- MARTHA has resolved, lytes acceptable remains on IV ABs Objective - Vital Signs/Intake and Output Vital Signs (last 24 hours): Temp Pulse Resp BP Pulse Ox 98.0 F 94 H 18 128/70 95 06/04/18 08:00 06/04/18 08:00 06/04/18 08:00 06/04/18 04:00 06/03/18 12:00 Intake and Output: 06/04/18 06/04/18 06:59 18:59 Intake Total 300 0 Output Total 600 Balance -300 0 - Medications Medications: Current Medications Acetaminophen (Tylenol 325mg Tab) 650 mg PO Q6 PRN PRN Reason: Pain, Mild (1-3) Apixaban (Eliquis) 2.5 mg PO Q12 [facility] Last Admin: 06/04/18 11:58 Dose: 2.5 mg Dextrose (Dextrose 50% Inj) 0 ml IV STAT PRN; Protocol PRN Reason: Hypoglycemia Protocol Dextrose (Glutose 15) 0 gm PO ONCE PRN; Protocol PRN Reason: Hypoglycemia Protocol Diltiazem HCl (Cardizem) 30 mg PO TID [facility] Last Admin: 06/02/18 20:27 Dose: Not Given Docusate Sodium (Colace) 100 mg PO BID [facility] Last Admin: 06/04/18 11:58 Dose: 100 mg Famotidine (Pepcid) 20 mg PO DAILY [facility] Last Admin: 06/04/18 11:56 Dose: 20 mg Gabapentin (Neurontin) 100 mg PO BID [facility] Last Admin: 06/04/18 11:56 Dose: 100 mg Glucagon (Glucagen Diagnostic Kit) 0 mg IM STAT PRN; Protocol PRN Reason: Hypoglycemia Protocol Piperacillin Sod/Tazobactam (Sod 2.25 gm/ Sodium Chloride) 50 mls @ 100 mls/hr IV Q6H [facility]; Protocol Last Admin: 06/04/18 11:59 Dose: 100 mls/hr Insulin Glargine (Lantus) 8 unit SC HS [facility] Last Admin: 06/03/18 21:52 Dose: 8 u Insulin Human Regular (Novolin R) 0 unit SC ACHS [facility]; Protocol Last Admin: 06/04/18 07:30 Dose: Not Given Metoprolol Tartrate (Lopressor) 50 mg PO BID [facility] Last Admin: 06/04/18 11:57 Dose: 50 mg Polyethylene Glycol (Miralax) 17 gm PO DAILY [facility] Last Admin: 06/04/18 11:59 Dose: 17 gm - Labs Labs: 06/03/18 06:35 06/04/18 06:19 PT 21.8 SECONDS (9.7-12.2) H 05/31/18 05:35 INR 2.0 05/31/18 05:35 APTT 34 SECONDS (21-34) 05/31/18 05:35 - Constitutional Appears: No Acute Distress, Chronically Ill - Head Exam Head Exam: ATRAUMATIC, NORMAL INSPECTION - Eye Exam Eye Exam: EOMI, Normal appearance - Neck Exam Neck Exam: Normal Inspection. absent: Tenderness - Respiratory Exam Respiratory Exam: Clear to Ausculation Bilateral, NORMAL BREATHING PATTERN - Cardiovascular Exam Cardiovascular Exam: REGULAR RHYTHM, +S1 - GI/Abdominal Exam GI & Abdominal Exam: Soft. absent: Tenderness - Extremities Exam Extremities Exam: Normal Inspection. absent: Tenderness - Neurological Exam Neurological Exam: Alert, CN II-XII Intact - Skin Skin Exam: Warm. absent: Dry Assessment and Plan (1) MARTHA (acute kidney injury) Status: Resolved (2) Rhabdomyolysis Status: Resolved (3) DM type 2 (diabetes mellitus, type 2) Status: Acute (4) Rotator cuff tear Status: Acute (5) Rotator cuff tear Status: Acute - Assessment and Plan (Free Text) Plan: continue to monitor lytes, renal function IV ABs as per ID
--- NOTE | 2018-06-04 18:27 | CP.PCM.PN ---
Subjective - Date & Time of Evaluation Date of Evaluation: 06/04/18 Time of Evaluation: 08:00 - Subjective Subjective: seen in ICU IV rx in progress cultures + grp B strep in blood x 2 Objective - Vital Signs/Intake and Output Vital Signs (last 24 hours): Temp Pulse Resp BP Pulse Ox 97.8 F 95 H 18 151/80 H 95 06/04/18 12:00 06/04/18 12:00 06/04/18 12:00 06/04/18 12:00 06/03/18 12:00 Intake and Output: 06/04/18 06/04/18 06:59 18:59 Intake Total 300 0 Output Total 600 Balance -300 0 - Medications Medications: Current Medications Acetaminophen (Tylenol 325mg Tab) 650 mg PO Q6 PRN PRN Reason: Pain, Mild (1-3) Apixaban (Eliquis) 2.5 mg PO Q12 [facility] Last Admin: 06/04/18 11:58 Dose: 2.5 mg Dextrose (Dextrose 50% Inj) 0 ml IV STAT PRN; Protocol PRN Reason: Hypoglycemia Protocol Dextrose (Glutose 15) 0 gm PO ONCE PRN; Protocol PRN Reason: Hypoglycemia Protocol Diltiazem HCl (Cardizem) 30 mg PO TID [facility] Last Admin: 06/02/18 20:27 Dose: Not Given Docusate Sodium (Colace) 100 mg PO BID [facility] Last Admin: 06/04/18 11:58 Dose: 100 mg Famotidine (Pepcid) 20 mg PO DAILY [facility] Last Admin: 06/04/18 11:56 Dose: 20 mg Gabapentin (Neurontin) 100 mg PO BID [facility] Last Admin: 06/04/18 11:56 Dose: 100 mg Glucagon (Glucagen Diagnostic Kit) 0 mg IM STAT PRN; Protocol PRN Reason: Hypoglycemia Protocol Piperacillin Sod/Tazobactam (Sod 2.25 gm/ Sodium Chloride) 50 mls @ 100 mls/hr IV Q6H [facility]; Protocol Last Admin: 06/04/18 11:59 Dose: 100 mls/hr Insulin Glargine (Lantus) 8 unit SC HS [facility] Last Admin: 06/03/18 21:52 Dose: 8 u Insulin Human Regular (Novolin R) 0 unit SC ACHS [facility]; Protocol Last Admin: 06/04/18 16:39 Dose: 10 units Metoprolol Tartrate (Lopressor) 50 mg PO BID [facility] Last Admin: 06/04/18 11:57 Dose: 50 mg Polyethylene Glycol (Miralax) 17 gm PO DAILY [facility] Last Admin: 06/04/18 11:59 Dose: 17 gm - Labs Labs: 06/03/18 06:35 06/04/18 06:19 PT 21.8 SECONDS (9.7-12.2) H 05/31/18 05:35 INR 2.0 05/31/18 05:35 APTT 34 SECONDS (21-34) 05/31/18 05:35 - Constitutional Appears: Non-toxic, Chronically Ill - Head Exam Head Exam: NORMOCEPHALIC - Eye Exam Eye Exam: absent: Scleral icterus - ENT Exam ENT Exam: Mucous Membranes Dry - Neck Exam Neck Exam: absent: Lymphadenopathy - Respiratory Exam Respiratory Exam: Decreased Breath Sounds - Cardiovascular Exam Cardiovascular Exam: REGULAR RHYTHM - GI/Abdominal Exam GI & Abdominal Exam: Distended - Rectal Exam Rectal Exam: Deferred - Exam Exam: NORMAL INSPECTION - Extremities Exam Extremities Exam: absent: Pedal Edema - Back Exam Back Exam: absent: CVA tenderness (L), CVA tenderness (R) - Neurological Exam Neurological Exam: Alert, Awake, Oriented x3 Assessment and Plan (1) Bacteremia Status: Acute (2) Sepsis Status: Acute (3) Group B streptococcal infection Status: Acute (4) MARTHA (acute kidney injury) Status: Resolved (5) Abnormal LFTs Status: Acute (6) DM type 2 (diabetes mellitus, type 2) Status: Acute (7) Leukocytosis Status: Acute (8) Rhabdomyolysis Status: Resolved (9) Rotator cuff tear Status: Acute (10) Congestive heart failure Status: Acute (11) UTI (urinary tract infection), bacterial Status: Acute - Assessment and Plan (Free Text) Assessment: CARRIE negative source possibly urine ? Urine c/s sent after IV rx started would cont rx for min 14 days
--- NOTE | 2018-06-04 19:23 | CP.PCM.PN ---
Subjective - Date & Time of Evaluation Date of Evaluation: 06/04/18 Time of Evaluation: 19:22 - Subjective Subjective: Patient s/p CARRIE No evidence of Endocarditis Normal EF Mild to moderate Medical management Objective - Vital Signs/Intake and Output Vital Signs (last 24 hours): Temp Pulse Resp BP Pulse Ox 97.8 F 95 H 18 151/80 H 95 06/04/18 12:00 06/04/18 12:00 06/04/18 12:00 06/04/18 12:00 06/03/18 12:00 Intake and Output: 06/04/18 06/05/18 18:59 06:59 Intake Total 0 Balance 0 - Medications Medications: Current Medications Acetaminophen (Tylenol 325mg Tab) 650 mg PO Q6 PRN PRN Reason: Pain, Mild (1-3) Apixaban (Eliquis) 2.5 mg PO Q12 [facility] Last Admin: 06/04/18 11:58 Dose: 2.5 mg Dextrose (Dextrose 50% Inj) 0 ml IV STAT PRN; Protocol PRN Reason: Hypoglycemia Protocol Dextrose (Glutose 15) 0 gm PO ONCE PRN; Protocol PRN Reason: Hypoglycemia Protocol Diltiazem HCl (Cardizem) 30 mg PO TID [facility] Last Admin: 06/02/18 20:27 Dose: Not Given Docusate Sodium (Colace) 100 mg PO BID [facility] Last Admin: 06/04/18 18:23 Dose: 100 mg Famotidine (Pepcid) 20 mg PO DAILY [facility] Last Admin: 06/04/18 11:56 Dose: 20 mg Gabapentin (Neurontin) 100 mg PO BID [facility] Last Admin: 06/04/18 18:23 Dose: 100 mg Glucagon (Glucagen Diagnostic Kit) 0 mg IM STAT PRN; Protocol PRN Reason: Hypoglycemia Protocol Piperacillin Sod/Tazobactam (Sod 2.25 gm/ Sodium Chloride) 50 mls @ 100 mls/hr IV Q6H [facility]; Protocol Last Admin: 06/04/18 18:26 Dose: 100 mls/hr Insulin Glargine (Lantus) 8 unit SC HS [facility] Last Admin: 06/03/18 21:52 Dose: 8 u Insulin Human Regular (Novolin R) 0 unit SC ACHS [facility]; Protocol Last Admin: 06/04/18 16:39 Dose: 10 units Metoprolol Tartrate (Lopressor) 50 mg PO BID [facility] Last Admin: 06/04/18 18:25 Dose: 50 mg Polyethylene Glycol (Miralax) 17 gm PO DAILY [facility] Last Admin: 06/04/18 11:59 Dose: 17 gm - Labs Labs: 06/03/18 06:35 06/04/18 06:19 PT 21.8 SECONDS (9.7-12.2) H 05/31/18 05:35 INR 2.0 05/31/18 05:35 APTT 34 SECONDS (21-34) 05/31/18 05:35
--- NOTE | 2018-06-04 20:09 | CARD ---
APPROVED REPORT Date of service: 06/04/2018 EXAM: Transesophageal echocardiogram with color flow Doppler. INDICATION Infection : Rule out subacute bacterial endocarditis Mitral Valve E/A ratio0.0 TDI E/Lateral E'0.0E/Medial E'0.0 Reason For Test : Rule out endocarditis. PROCEDURE After obtaining informed consent, patient underwent transesophageal echo in the [employer]. Type of Sedation : Conscious Sedation Sedation was provided by anesthesiologist. Sedation was achieved with intravenously. The CARRIE was performed complications. Throughout the procedure, the blood pressure, pulse oximetry, cardiac rhythm, and rate were monitored. The patient tolerated the procedure without adverse effects. Recovery from conscious sedation was uneventful and vital signs were stable. LEFT VENTRICLE There is moderate concentric left ventricular hypertrophy. The left ventricular function is normal. The left ventricular ejection fraction is within the normal range. Tissue Doppler imaging reveals abnormal left ventricular diastolic dysfunction. No left ventricle thrombus noted on this study. There is no ventricular septal defect visualized. RIGHT VENTRICLE The right ventricle is normal size. The right ventricular systolic function is normal. ATRIA The left atrium size is normal. The right atrium size is normal. The interatrial septum is intact with no evidence for an atrial septal defect. AORTIC VALVE The aortic valve is moderately sclerotic. The aortic valve is tri-cuspid. There is mild aortic regurgitation. There is moderate valvular aortic stenosis. SHANELLE by planimetry 1.2 sqcm There is no aortic valvular vegetation. MITRAL VALVE Mitral annular calcification is mild. There is no evidence of mitral valve prolapse. There is no mitral valve stenosis. Mitral regurgitation is mild. TRICUSPID VALVE The tricuspid valve is normal in structure. There is mild tricuspid regurgitation. There is no tricuspid valve prolapse or vegetation. There is no tricuspid valve stenosis. PULMONIC VALVE The pulmonary valve is normal in structure. There is mild pulmonic valvular regurgitation. There is no pulmonic valvular stenosis. GREAT VESSELS The aortic root is normal in size. <Conclusion> The left ventricular function is normal. The left ventricular ejection fraction is within the normal range. Tissue Doppler imaging reveals abnormal left ventricular diastolic dysfunction. The aortic valve is moderately sclerotic. The aortic valve is tri-cuspid. There is mild aortic regurgitation. There is moderate valvular aortic stenosis. SHANELLE by planimetry 1.2 sqcm There is no aortic valvular vegetation. Mitral regurgitation is mild. There is no tricuspid valve prolapse or vegetation. The pulmonary valve is normal in structure. There is no evidence of Endocarditis
[2018-06-04] MEDS: (Lantus) Insulin Glargine, Recombinant SC SCH (22:12)
[2018-06-05] MEDS: Piperacillin/Tazobact 2.25 GM in Sodium Chloride 0.9% 50 ML IV SCH ×2 (00:19→06:39)
[2018-06-05 06:09] LABS: BASO # 0.1 K/uL (0.0-0.2); BASO % 0.5 % (0.0-2.0); EOS # 0.4 K/uL (0.0-0.7); EOS % 3.3 % (0.0-4.0); HEMOGLOBIN 13.7 g/dL (12.0-18.0); LYMPH # 2.3 K/uL (1.0-4.3); LYMPH % 17.6 % (20.0-40.0); MEAN CELL VOLUME 95.5 fL (80.0-94.0); MEAN CORPUSCULAR HEMOGLOBIN 32.5 pg (27.0-31.0); MEAN PLATELET VOLUME 11.9 fL (7.2-11.7); MONO # 0.8 K/uL (0.0-0.8); MONO % 6.4 % (0.0-10.0); NEUT # 9.6 K/uL (1.8-7.0); NEUT % 72.2 % (50.0-75.0); NRBC % 0.1 % (0.0-2.0); RBC 4.23 Mil/uL (4.40-5.90); RED CELL DISTRIBUTION WIDTH 12.6 % (11.5-14.5); WHITE BLOOD COUNT 13.3 K/uL (4.8-10.8)
[2018-06-05 06:34] LABS: ALB/GLOB RATIO 0.8 (1.0-2.1); ALT/SGPT 93 U/L (21-72); AST/SGOT 58 U/L (17-59); BLOOD UREA NITROGEN 24 mg/dL (9-20); CALCIUM 9.3 mg/dl (8.6-10.4); GFR NON-AFRICAN AMERICAN > 60
[2018-06-05] MEDS: (Novolin R) Insulin Human Regular 100 units/ml vial SC SCH ×4 (08:03→21:17)
--- NOTE | 2018-06-05 08:47 | CP.PCM.PN ---
Subjective - Date & Time of Evaluation Date of Evaluation: 06/05/18 Time of Evaluation: 08:45 - Subjective Subjective: afebrile bp stable renal function stable lytes ok awake alert comfoertable ROS says no to all questions inROS Objective - Vital Signs/Intake and Output Vital Signs (last 24 hours): Temp Pulse Resp BP Pulse Ox 97.6 F 79 23 162/89 H 95 06/05/18 04:00 06/05/18 04:00 06/05/18 04:00 06/05/18 04:00 06/05/18 04:00 Intake and Output: 06/05/18 06/05/18 06:59 18:59 Intake Total 280 Output Total 800 200 Balance -520 -200 - Medications Medications: Current Medications Acetaminophen (Tylenol 325mg Tab) 650 mg PO Q6 PRN PRN Reason: Pain, Mild (1-3) Apixaban (Eliquis) 2.5 mg PO Q12 [facility] Last Admin: 06/04/18 22:11 Dose: 2.5 mg Dextrose (Dextrose 50% Inj) 0 ml IV STAT PRN; Protocol PRN Reason: Hypoglycemia Protocol Dextrose (Glutose 15) 0 gm PO ONCE PRN; Protocol PRN Reason: Hypoglycemia Protocol Diltiazem HCl (Cardizem) 30 mg PO TID [facility] Last Admin: 06/02/18 20:27 Dose: Not Given Docusate Sodium (Colace) 100 mg PO BID [facility] Last Admin: 06/04/18 18:23 Dose: 100 mg Famotidine (Pepcid) 20 mg PO DAILY [facility] Last Admin: 06/04/18 11:56 Dose: 20 mg Gabapentin (Neurontin) 100 mg PO BID [facility] Last Admin: 06/04/18 18:23 Dose: 100 mg Glucagon (Glucagen Diagnostic Kit) 0 mg IM STAT PRN; Protocol PRN Reason: Hypoglycemia Protocol Piperacillin Sod/Tazobactam (Sod 2.25 gm/ Sodium Chloride) 50 mls @ 100 mls/hr IV Q6H [facility]; Protocol Last Admin: 06/05/18 06:39 Dose: 100 mls/hr Insulin Glargine (Lantus) 8 unit SC HS [facility] Last Admin: 06/04/18 22:12 Dose: 8 units Insulin Human Regular (Novolin R) 0 unit SC ACHS [facility]; Protocol Last Admin: 06/05/18 08:03 Dose: 4 units Metoprolol Tartrate (Lopressor) 50 mg PO BID [facility] Last Admin: 06/04/18 18:25 Dose: 50 mg Polyethylene Glycol (Miralax) 17 gm PO DAILY [facility] Last Admin: 06/04/18 11:59 Dose: 17 gm - Labs Labs: 06/05/18 06:01 06/05/18 06:03 PT 21.8 SECONDS (9.7-12.2) H 05/31/18 05:35 INR 2.0 05/31/18 05:35 APTT 34 SECONDS (21-34) 05/31/18 05:35 - Constitutional Appears: No Acute Distress - ENT Exam ENT Exam: Mucous Membranes Moist - Respiratory Exam Respiratory Exam: Clear to Ausculation Bilateral, NORMAL BREATHING PATTERN - Cardiovascular Exam Cardiovascular Exam: RRR. absent: JVD - GI/Abdominal Exam GI & Abdominal Exam: Soft. absent: Distended, Tenderness - Extremities Exam Extremities Exam: absent: Calf Tenderness - Neurological Exam Neurological Exam: Alert - Psychiatric Exam Psychiatric exam: Normal Affect - Skin Skin Exam: Dry Assessment and Plan (1) DM type 2 (diabetes mellitus, type 2) Status: Acute (2) MARTHA (acute kidney injury) Status: Resolved (3) Rhabdomyolysis Status: Resolved - Assessment and Plan (Free Text) Plan: continue to follow chems closely continue supportive care
[2018-06-05] MEDS: POLYETHYLENE GLYCOL 3350 17 GM/Dose PACKET PO SCH (09:57)
--- NOTE | 2018-06-05 10:39 | CP.PCM.PN ---
Subjective - Date & Time of Evaluation Date of Evaluation: 06/04/18 Time of Evaluation: 10:39 - Subjective Subjective: patient is morning was very confused, but later he was feeling better. He denies any chest pain or shortness of breath. No nausea vomiting noted. patient was seen by infectious disease. Scheduled for CARRIE tomorrow. On examination: Vital signs stable, except tachycardia noted, flutter noted. I spoke to the visual presentation manager. Chest clear Abdomen soft Extremities edema noted. Right side shoulder stiffness present Patient labs reviewed Cultures reviewed patient is 82-year-old male admitted with history of atrial flutter hypertension. Also has a history of dementia. Patient this time admitted with altered mental status, elevated CPK, lipase. Positive for gram-positive, beta-hemolytic bacteremia. It is unclear the source. Appreciate ID evaluation and GI evaluation. Most likely his condition related to bacteremia, associated sepsis, also metabolic encephalopathy secondary to medications Contimed in the problem. Will continue the current ICU treatment. Antibiotic as per infectious disease Objective - Vital Signs/Intake and Output Vital Signs (last 24 hours): Temp Pulse Resp BP Pulse Ox 97.3 F L 92 H 19 157/93 H 97 06/05/18 08:00 06/05/18 10:00 06/05/18 08:00 06/05/18 08:00 06/05/18 08:00 Intake and Output: 06/05/18 06/05/18 06:59 18:59 Intake Total 280 Output Total 800 200 Balance -520 -200 - Medications Medications: Current Medications Acetaminophen (Tylenol 325mg Tab) 650 mg PO Q6 PRN PRN Reason: Pain, Mild (1-3) Apixaban (Eliquis) 2.5 mg PO Q12 [facility] Last Admin: 06/05/18 09:57 Dose: 2.5 mg Dextrose (Dextrose 50% Inj) 0 ml IV STAT PRN; Protocol PRN Reason: Hypoglycemia Protocol Dextrose (Glutose 15) 0 gm PO ONCE PRN; Protocol PRN Reason: Hypoglycemia Protocol Diltiazem HCl (Cardizem) 30 mg PO TID [facility] Last Admin: 06/02/18 20:27 Dose: Not Given Docusate Sodium (Colace) 100 mg PO BID [facility] Last Admin: 06/05/18 09:57 Dose: 100 mg Famotidine (Pepcid) 20 mg PO DAILY [facility] Last Admin: 06/05/18 09:57 Dose: 20 mg Gabapentin (Neurontin) 100 mg PO BID [facility] Last Admin: 06/05/18 09:57 Dose: 100 mg Glucagon (Glucagen Diagnostic Kit) 0 mg IM STAT PRN; Protocol PRN Reason: Hypoglycemia Protocol Insulin Glargine (Lantus) 8 unit SC HS [facility] Last Admin: 06/04/18 22:12 Dose: 8 units Insulin Human Regular (Novolin R) 0 unit SC ACHS [facility]; Protocol Last Admin: 06/05/18 08:03 Dose: 4 units Metoprolol Tartrate (Lopressor) 50 mg PO BID [facility] Last Admin: 06/05/18 09:57 Dose: 50 mg Polyethylene Glycol (Miralax) 17 gm PO DAILY [facility] Last Admin: 06/05/18 09:57 Dose: 17 gm - Labs Labs: 06/05/18 06:01 06/05/18 06:03 PT 21.8 SECONDS (9.7-12.2) H 05/31/18 05:35 INR 2.0 05/31/18 05:35 APTT 34 SECONDS (21-34) 05/31/18 05:35
--- NOTE | 2018-06-05 10:39 | CP.PCM.PN ---
Subjective - Date & Time of Evaluation Date of Evaluation: 06/03/18 Time of Evaluation: 10:38 - Subjective Subjective: patient is morning was very confused, but later he was feeling better. He denies any chest pain or shortness of breath. No nausea vomiting noted. On examination: Vital signs stable, except tachycardia noted, flutter noted. I spoke to the residential support worker. Chest clear Abdomen soft Extremities edema noted. Right side shoulder stiffness present Patient labs reviewed Cultures reviewed Because of the group B streptococcus bacteremia will get infectious disease evaluation, cardiology for possible CARRIE. I spoke to the patient in detail and will proceed monitor. Objective - Vital Signs/Intake and Output Vital Signs (last 24 hours): Temp Pulse Resp BP Pulse Ox 97.3 F L 92 H 19 157/93 H 97 06/05/18 08:00 06/05/18 10:00 06/05/18 08:00 06/05/18 08:00 06/05/18 08:00 Intake and Output: 06/05/18 06/05/18 06:59 18:59 Intake Total 280 Output Total 800 200 Balance -520 -200 - Medications Medications: Current Medications Acetaminophen (Tylenol 325mg Tab) 650 mg PO Q6 PRN PRN Reason: Pain, Mild (1-3) Apixaban (Eliquis) 2.5 mg PO Q12 [facility] Last Admin: 06/05/18 09:57 Dose: 2.5 mg Dextrose (Dextrose 50% Inj) 0 ml IV STAT PRN; Protocol PRN Reason: Hypoglycemia Protocol Dextrose (Glutose 15) 0 gm PO ONCE PRN; Protocol PRN Reason: Hypoglycemia Protocol Diltiazem HCl (Cardizem) 30 mg PO TID [facility] Last Admin: 06/02/18 20:27 Dose: Not Given Docusate Sodium (Colace) 100 mg PO BID [facility] Last Admin: 06/05/18 09:57 Dose: 100 mg Famotidine (Pepcid) 20 mg PO DAILY [facility] Last Admin: 06/05/18 09:57 Dose: 20 mg Gabapentin (Neurontin) 100 mg PO BID [facility] Last Admin: 06/05/18 09:57 Dose: 100 mg Glucagon (Glucagen Diagnostic Kit) 0 mg IM STAT PRN; Protocol PRN Reason: Hypoglycemia Protocol Insulin Glargine (Lantus) 8 unit SC HS [facility] Last Admin: 06/04/18 22:12 Dose: 8 units Insulin Human Regular (Novolin R) 0 unit SC ACHS [facility]; Protocol Last Admin: 06/05/18 08:03 Dose: 4 units Metoprolol Tartrate (Lopressor) 50 mg PO BID [facility] Last Admin: 06/05/18 09:57 Dose: 50 mg Polyethylene Glycol (Miralax) 17 gm PO DAILY [facility] Last Admin: 06/05/18 09:57 Dose: 17 gm - Labs Labs: 06/05/18 06:01 06/05/18 06:03 PT 21.8 SECONDS (9.7-12.2) H 05/31/18 05:35 INR 2.0 05/31/18 05:35 APTT 34 SECONDS (21-34) 05/31/18 05:35
--- NOTE | 2018-06-05 10:39 | CP.PCM.PN ---
Subjective - Date & Time of Evaluation Date of Evaluation: 06/05/18 Time of Evaluation: 10:39 - Subjective Subjective: patient is morning was very confused, but later he was feeling better. He denies any chest pain or shortness of breath. No nausea vomiting noted. patient was seen by infectious disease. transesophageal echocardiogram negative. On examination: Vital signs stable, except tachycardia noted, flutter noted. I spoke to the community health advocate. Chest clear Abdomen soft Extremities edema noted. Right side shoulder stiffness present Patient labs reviewed Cultures reviewed patient is 82-year-old male admitted with history of atrial flutter hype rtension. Also has a history of dementia. Patient this time admitted with altered mental status, elevated CPK, lipase. Positive for gram-positive, beta-hemolytic bacteremia. It is unclear the source. Appreciate ID evaluation and GI evaluation. Most likely his condition related to bacteremia, associated sepsis, also metabolic encephalopathy secondary to medications Contimed in the problem. Will continue the current ICU treatment. Antibiotic as per infectious disease Objective - Vital Signs/Intake and Output Vital Signs (last 24 hours): Temp Pulse Resp BP Pulse Ox 97.3 F L 92 H 19 157/93 H 97 06/05/18 08:00 06/05/18 10:00 06/05/18 08:00 06/05/18 08:00 06/05/18 08:00 Intake and Output: 06/05/18 06/05/18 06:59 18:59 Intake Total 280 Output Total 800 200 Balance -520 -200 - Medications Medications: Current Medications Acetaminophen (Tylenol 325mg Tab) 650 mg PO Q6 PRN PRN Reason: Pain, Mild (1-3) Apixaban (Eliquis) 2.5 mg PO Q12 [facility] Last Admin: 06/05/18 09:57 Dose: 2.5 mg Dextrose (Dextrose 50% Inj) 0 ml IV STAT PRN; Protocol PRN Reason: Hypoglycemia Protocol Dextrose (Glutose 15) 0 gm PO ONCE PRN; Protocol PRN Reason: Hypoglycemia Protocol Diltiazem HCl (Cardizem) 30 mg PO TID [facility] Last Admin: 06/02/18 20:27 Dose: Not Given Docusate Sodium (Colace) 100 mg PO BID [facility] Last Admin: 06/05/18 09:57 Dose: 100 mg Famotidine (Pepcid) 20 mg PO DAILY [facility] Last Admin: 06/05/18 09:57 Dose: 20 mg Gabapentin (Neurontin) 100 mg PO BID [facility] Last Admin: 06/05/18 09:57 Dose: 100 mg Glucagon (Glucagen Diagnostic Kit) 0 mg IM STAT PRN; Protocol PRN Reason: Hypoglycemia Protocol Insulin Glargine (Lantus) 8 unit SC HS [facility] Last Admin: 06/04/18 22:12 Dose: 8 units Insulin Human Regular (Novolin R) 0 unit SC ACHS [facility]; Protocol Last Admin: 06/05/18 08:03 Dose: 4 units Metoprolol Tartrate (Lopressor) 50 mg PO BID [facility] Last Admin: 06/05/18 09:57 Dose: 50 mg Polyethylene Glycol (Miralax) 17 gm PO DAILY [facility] Last Admin: 06/05/18 09:57 Dose: 17 gm - Labs Labs: 06/05/18 06:01 06/05/18 06:03 PT 21.8 SECONDS (9.7-12.2) H 05/31/18 05:35 INR 2.0 05/31/18 05:35 APTT 34 SECONDS (21-34) 05/31/18 05:35
--- NOTE | 2018-06-05 11:53 | CP.PCM.PN ---
Subjective - Date & Time of Evaluation Date of Evaluation: 06/05/18 Time of Evaluation: 11:51 - Subjective Subjective: f/u abnormal LFTs Denies RB, melena, SOb, THIBODEAUX, cough, SZ, hematuria, hemoptysis Objective - Vital Signs/Intake and Output Vital Signs (last 24 hours): Temp Pulse Resp BP Pulse Ox 97.3 F L 92 H 19 157/93 H 97 06/05/18 08:00 06/05/18 10:00 06/05/18 08:00 06/05/18 08:00 06/05/18 08:00 Intake and Output: 06/05/18 06/05/18 06:59 18:59 Intake Total 280 Output Total 800 200 Balance -520 -200 - Medications Medications: Current Medications Acetaminophen (Tylenol 325mg Tab) 650 mg PO Q6 PRN PRN Reason: Pain, Mild (1-3) Apixaban (Eliquis) 2.5 mg PO Q12 [facility] Last Admin: 06/05/18 09:57 Dose: 2.5 mg Dextrose (Dextrose 50% Inj) 0 ml IV STAT PRN; Protocol PRN Reason: Hypoglycemia Protocol Dextrose (Glutose 15) 0 gm PO ONCE PRN; Protocol PRN Reason: Hypoglycemia Protocol Diltiazem HCl (Cardizem) 30 mg PO TID [facility] Last Admin: 06/02/18 20:27 Dose: Not Given Docusate Sodium (Colace) 100 mg PO BID [facility] Last Admin: 06/05/18 09:57 Dose: 100 mg Famotidine (Pepcid) 20 mg PO DAILY [facility] Last Admin: 06/05/18 09:57 Dose: 20 mg Gabapentin (Neurontin) 100 mg PO BID [facility] Last Admin: 06/05/18 09:57 Dose: 100 mg Glucagon (Glucagen Diagnostic Kit) 0 mg IM STAT PRN; Protocol PRN Reason: Hypoglycemia Protocol Insulin Glargine (Lantus) 8 unit SC HS [facility] Last Admin: 06/04/18 22:12 Dose: 8 units Insulin Human Regular (Novolin R) 0 unit SC ACHS [facility]; Protocol Last Admin: 06/05/18 11:36 Dose: 8 units Metoprolol Tartrate (Lopressor) 50 mg PO BID [facility] Last Admin: 06/05/18 09:57 Dose: 50 mg Polyethylene Glycol (Miralax) 17 gm PO DAILY [facility] Last Admin: 06/05/18 09:57 Dose: 17 gm - Labs Labs: 06/05/18 06:01 06/05/18 06:03 PT 21.8 SECONDS (9.7-12.2) H 05/31/18 05:35 INR 2.0 05/31/18 05:35 APTT 34 SECONDS (21-34) 05/31/18 05:35 - Constitutional Appears: Well - Respiratory Exam Respiratory Exam: Clear to Ausculation Bilateral - Cardiovascular Exam Cardiovascular Exam: RRR - GI/Abdominal Exam GI & Abdominal Exam: Soft, Normal Bowel Sounds. absent: Guarding, Tenderness, Mass - Neurological Exam Neurological Exam: Alert, Awake Assessment and Plan (1) Abnormal LFTs Assessment & Plan: sepsis related. Slowly improving Status: Acute (2) DM type 2 (diabetes mellitus, type 2) Status: Acute (3) Pancreatitis Assessment & Plan: No pancreatitis on CT. Panc labs better. Was on pain meds Status: Acute (4) Renal insufficiency Status: Acute (5) Rotator cuff tear Status: Acute (6) Atrial flutter Status: Acute (7) General weakness Status: Acute (8) UTI (urinary tract infection), bacterial Status: Acute (9) Sepsis Assessment & Plan: check CARRIE Status: Acute
--- NOTE | 2018-06-05 18:35 | CP.PCM.PN ---
Subjective - Date & Time of Evaluation Date of Evaluation: 06/05/18 Time of Evaluation: 08:50 - Subjective Subjective: Patient was seen and evaluated. Not in distress CCU Objective - Physical Exam Head: Positive for: Atraumatic, Normocephalic Pupils: Positive for: PERRL Extroacular Muscles: Positive for: EOMI Conjunctiva: Positive for: Normal Mouth: Positive for: Moist Mucous Membranes Neck: Positive for: Normal Range of Motion Respiratory/Chest: Positive for: Clear to Auscultation. Negative for: Respiratory Distress, Accessory Muscle Use Cardiovascular: Positive for: Normal S1, S2, Irregular Rhythm Abdomen: Positive for: Normal Bowel Sounds. Negative for: Tenderness, Distention, Rebound, Guarding Genitourinary Male: Positive for: Other ([place] condom catheter in place) Upper Extremity: Positive for: Normal Inspection, NORMAL PULSES, Tenderness (R shoulder), Neurovascularly Intact, Capillary Refill < 2s. Negative for: Swell ing, Erythema Lower Extremity: Positive for: Normal Inspection, NORMAL PULSES, Neurovascularly Intact, Capillary Refill < 2 s. Negative for: Edema Neurological: Normal Skin: Positive for: Warm, Dry, Normal Color Psychiatric: Positive for: Alert Review of Systems - Constitutional Constitutional: absent: Fever, Chills, Sweats - EENT Eyes: UNREMARKABLE. absent: Change in Vision Ears: UNREMARKABLE. absent: Decreased Hearing Nose/Mouth/Throat: UNREMARKABLE. absent: Nasal Congestion - Cardiovascular Cardiovascular: UNREMARKABLE. absent: Chest Pain, Dyspnea, Palpitations - Respiratory Respiratory: UNREMARKABLE. absent: Cough, Dyspnea - Gastrointestinal Gastrointestinal: UNREMARKABLE. absent: Abdominal Pain, Constipation, Diarrhea, Nausea, Vomiting - Genitourinary Genitourinary: Urinary Incontinence, UNREMARKABLE. absent: Dysuria - Musculoskeletal Musculoskeletal: As Par HPI, Arthralgias (R shoulder). absent: Numbness, Tingling - Integumentary Integumentary: UNREMARKABLE. absent: Lesions - Neurological Neurological: Tremor (L hand). absent: Headaches, Paresthesias - Psychiatric Psychiatric: UNREMARKABLE - Endocrine Endocrine: UNREMARKABLE - Hematologic/Lymphatic Hematologic: UNREMARKABLE. absent: Easy Bleeding, Easy Bruising, Lymp hadenopathy Assessment/Plan - Assessment and Plan (Free Text) Assessment: Patient is an 83 yo male with a history of Afib/flutter s/p cardioversions, T2DM, HTN, HLD, BPH, and renal insufficiency who presented to the ED with AMS (brought in by friend). Patient was seen in the ED the day prior for R shoulder pain and was started on Flexeril. He was also recently started on Percocet by his orthopedist, which patient has been taking around the clock. Patient was given Narcan in the ED. Mentation has improved, nearing baseline. Patient is able to be downgraded to telemetry unit. Plan: Neuro: AMS- improving, suspect 2/2 polypharmacy - CT head x2: no acute findings - Discontinued Percocet and Flexeril - Tylenol 650 mg PO Q6H PRN pain - PT/OT/ST CV: Afib RVR- improved - Monitor on telemetry- sinus rhythm with occasional PACs - Echo pending - Eliquis 5 mg PO BID - Cardiology consulted (Jeffrey) HTN - Amlodipine 5 mg PO daily - Labetalol 10 mg IV Q6H PRN Hyperlipidemia - Discontinue Crestor 2/ rhabdo Pulm: - Maintain spO2>92%- nasal cannula PRN GI: Elevated lipase - Resolved (5218->297) - Abd u/s pending - Heart healthy diet Renal: Rhabdomyolysis - CK trending down (685, max 1297) MARTHA - Creatinine improved (3.4->1.4) - Nephrology consulted (Tomas) Endo: T2DM - Hypoglycemia protocol - Accuchecks ACHS with Regular ISS - Gabapentin 100 mg PO BID Heme: - Monitor H&H MSK: R shoulder pain s/p fall- patient is seeing ortho as outpatient for torn rotator cuff - R shoulder XR: no acute findings - PT/OT ID: - Afebrile - WBC trending down (19.1->16.2) - Zosyn 2.25 g IV Q6H Ppx: VTE: SCDs, Eliquis GI: Pepcid 20 mg PO daily Code status: full code Patient s/p CARRIE No Endocarditis Medical managemment Objective - Vital Signs/Intake and Output Vital Signs (last 24 hours): Temp Pulse Resp BP Pulse Ox 97.7 F 79 18 120/81 97 06/05/18 16:00 06/05/18 18:00 06/05/18 16:00 06/05/18 16:00 06/05/18 16:00 Intake and Output: 06/05/18 06/05/18 06:59 18:59 Intake Total 280 850 Output Total 800 930 Balance -520 -80 - Medications Medications: Current Medications Acetaminophen (Tylenol 325mg Tab) 650 mg PO Q6 PRN PRN Reason: Pain, Mild (1-3) Apixaban (Eliquis) 2.5 mg PO Q12 [facility] Last Admin: 06/05/18 09:57 Dose: 2.5 mg Dextrose (Dextrose 50% Inj) 0 ml IV STAT PRN; Protocol PRN Reason: Hypoglycemia Protocol Dextrose (Glutose 15) 0 gm PO ONCE PRN; Protocol PRN Reason: Hypoglycemia Protocol Diltiazem HCl (Cardizem) 30 mg PO TID [facility] Last Admin: 06/02/18 20:27 Dose: Not Given Docusate Sodium (Colace) 100 mg PO BID [facility] Last Admin: 06/05/18 17:52 Dose: 100 mg Famotidine (Pepcid) 20 mg PO DAILY [facility] Last Admin: 06/05/18 09:57 Dose: 20 mg Gabapentin (Neurontin) 100 mg PO BID [facility] Last Admin: 06/05/18 17:52 Dose: 100 mg Glucagon (Glucagen Diagnostic Kit) 0 mg IM STAT PRN; Protocol PRN Reason: Hypoglycemia Protocol Insulin Glargine (Lantus) 8 unit SC HS [facility] Last Admin: 06/04/18 22:12 Dose: 8 units Insulin Human Regular (Novolin R) 0 unit SC ACHS [facility]; Protocol Last Admin: 06/05/18 16:26 Dose: 4 units Metoprolol Tartrate (Lopressor) 50 mg PO BID [facility] Last Admin: 06/05/18 17:52 Dose: 50 mg Polyethylene Glycol (Miralax) 17 gm PO DAILY [facility] Last Admin: 06/05/18 09:57 Dose: 17 gm - Labs Labs: 06/05/18 06:01 06/05/18 06:03 PT 21.8 SECONDS (9.7-12.2) H 05/31/18 05:35 INR 2.0 05/31/18 05:35 APTT 34 SECONDS (21-34) 05/31/18 05:35
[2018-06-05] MEDS: (Lantus) Insulin Glargine, Recombinant SC SCH (21:20)
[2018-06-06 08:11] VITALS: RESP 20
[2018-06-06] MEDS: (Novolin R) Insulin Human Regular 100 units/ml vial SC SCH ×4 (08:43→22:05)
--- NOTE | 2018-06-06 09:59 | CP.PCM.PN ---
Subjective - Date & Time of Evaluation Date of Evaluation: 06/06/18 Time of Evaluation: 09:35 - Subjective Subjective: f/u pancreatitis, LFTs Daughter is present. Had constipation Denies diarrhea, RB, melena, fever, chills, Cp. SOB, THIBODEAUX, cough hematuria Objective - Vital Signs/Intake and Output Vital Signs (last 24 hours): Temp Pulse Resp BP Pulse Ox 97.8 F 93 H 20 162/69 H 97 06/06/18 07:25 06/06/18 07:47 06/06/18 07:25 06/06/18 07:25 06/06/18 07:25 Intake and Output: 06/06/18 06/06/18 06:59 18:59 Intake Total 120 Balance 120 - Medications Medications: Current Medications Acetaminophen (Tylenol 325mg Tab) 650 mg PO Q6 PRN PRN Reason: Pain, Mild (1-3) Apixaban (Eliquis) 2.5 mg PO Q12 [facility] Last Admin: 06/05/18 21:20 Dose: 2.5 mg Dextrose (Dextrose 50% Inj) 0 ml IV STAT PRN; Protocol PRN Reason: Hypoglycemia Protocol Dextrose (Glutose 15) 0 gm PO ONCE PRN; Protocol PRN Reason: Hypoglycemia Protocol Diltiazem HCl (Cardizem) 30 mg PO TID [facility] Last Admin: 06/02/18 20:27 Dose: Not Given Docusate Sodium (Colace) 100 mg PO BID [facility] Last Admin: 06/05/18 17:52 Dose: 100 mg Famotidine (Pepcid) 20 mg PO DAILY [facility] Last Admin: 06/05/18 09:57 Dose: 20 mg Gabapentin (Neurontin) 100 mg PO BID [facility] Last Admin: 06/05/18 17:52 Dose: 100 mg Glucagon (Glucagen Diagnostic Kit) 0 mg IM STAT PRN; Protocol PRN Reason: Hypoglycemia Protocol Insulin Glargine (Lantus) 8 unit SC HS [facility] Last Admin: 06/05/18 21:20 Dose: 8 units Insulin Human Regular (Novolin R) 0 unit SC ACHS [facility]; Protocol Last Admin: 06/06/18 08:43 Dose: 4 units Metoprolol Tartrate (Lopressor) 50 mg PO BID [facility] Last Admin: 06/05/18 17:52 Dose: 50 mg Polyethylene Glycol (Miralax) 17 gm PO DAILY [facility] Last Admin: 06/05/18 09:57 Dose: 17 gm - Labs Labs: 06/05/18 06:01 06/05/18 06:03 PT 21.8 SECONDS (9.7-12.2) H 05/31/18 05:35 INR 2.0 05/31/18 05:35 APTT 34 SECONDS (21-34) 05/31/18 05:35 - Constitutional Appears: Well - Neck Exam Neck Exam: absent: Tenderness - Respiratory Exam Respiratory Exam: Clear to Ausculation Bilateral - Cardiovascular Exam Cardiovascular Exam: RRR - GI/Abdominal Exam GI & Abdominal Exam: Soft, Normal Bowel Sounds. absent: Guarding, Tenderness, Mass, Rebound - Extremities Exam Extremities Exam: absent: Calf Tenderness - Neurological Exam Neurological Exam: Alert, Oriented x3 - Skin Skin Exam: Intact Assessment and Plan (1) Abnormal LFTs Assessment & Plan: Improving / Likely related to sepsis. Status: Acute (2) DM type 2 (diabetes mellitus, type 2) Status: Acute (3) Pancreatitis Assessment & Plan: Lipase better. No pancreatitis on CT. Avoid etoh. Status: Acute (4) Renal insufficiency Status: Acute (5) Rotator cuff tear Status: Acute (6) Atrial flutter Status: Acute (7) General weakness Status: Acute (8) UTI (urinary tract infection), bacterial Status: Acute (9) Sepsis Status: Acute (10) BPH (benign prostatic hyperplasia) Status: Acute (11) Constipation Assessment & Plan: Seen on CT. P- laxatives. Status: Acute
[2018-06-06] MEDS: POLYETHYLENE GLYCOL 3350 17 GM/Dose PACKET PO SCH (11:03)
--- NOTE | 2018-06-06 16:56 | CP.PCM.PN ---
Subjective - Date & Time of Evaluation Date of Evaluation: 06/06/18 Time of Evaluation: 10:00 - Subjective Subjective: awake alert at times confused blood cutures positive IVrx to cont Objective - Vital Signs/Intake and Output Vital Signs (last 24 hours): Temp Pulse Resp BP Pulse Ox 97.8 F 99 H 20 162/69 H 97 06/06/18 07:25 06/06/18 11:33 06/06/18 07:25 06/06/18 07:25 06/06/18 07:25 Intake and Output: 06/06/18 06/06/18 06:59 18:59 Intake Total 120 100 Output Total 200 Balance 120 -100 - Medications Medications: Current Medications Acetaminophen (Tylenol 325mg Tab) 650 mg PO Q6 PRN PRN Reason: Pain, Mild (1-3) Apixaban (Eliquis) 2.5 mg PO Q12 [facility] Last Admin: 06/06/18 11:04 Dose: 2.5 mg Dextrose (Dextrose 50% Inj) 0 ml IV STAT PRN; Protocol PRN Reason: Hypoglycemia Protocol Dextrose (Glutose 15) 0 gm PO ONCE PRN; Protocol PRN Reason: Hypoglycemia Protocol Diltiazem HCl (Cardizem) 30 mg PO TID [facility] Last Admin: 06/02/18 20:27 Dose: Not Given Docusate Sodium (Colace) 100 mg PO BID [facility] Last Admin: 06/06/18 11:04 Dose: 100 mg Famotidine (Pepcid) 20 mg PO DAILY [facility] Last Admin: 06/06/18 11:04 Dose: 20 mg Gabapentin (Neurontin) 100 mg PO BID [facility] Last Admin: 06/06/18 11:04 Dose: 100 mg Glucagon (Glucagen Diagnostic Kit) 0 mg IM STAT PRN; Protocol PRN Reason: Hypoglycemia Protocol Insulin Glargine (Lantus) 8 unit SC HS [facility] Last Admin: 06/05/18 21:20 Dose: 8 units Insulin Human Regular (Novolin R) 0 unit SC ACHS [facility]; Protocol Last Admin: 06/06/18 12:38 Dose: 6 units Metoprolol Tartrate (Lopressor) 50 mg PO BID [facility] Last Admin: 06/06/18 11:04 Dose: 50 mg Polyethylene Glycol (Miralax) 17 gm PO DAILY [facility] Last Admin: 06/06/18 11:03 Dose: 17 gm - Labs Labs: 06/05/18 06:01 06/05/18 06:03 PT 21.8 SECONDS (9.7-12.2) H 05/31/18 05:35 INR 2.0 05/31/18 05:35 APTT 34 SECONDS (21-34) 05/31/18 05:35 - Constitutional Appears: Non-toxic, Chronically Ill - Head Exam Head Exam: NORMOCEPHALIC - Eye Exam Eye Exam: PERRL - ENT Exam ENT Exam: Mucous Membranes Dry - Neck Exam Neck Exam: absent: Lymphadenopathy - Respiratory Exam Respiratory Exam: Decreased Breath Sounds - Cardiovascular Exam Cardiovascular Exam: REGULAR RHYTHM - GI/Abdominal Exam GI & Abdominal Exam: Soft. absent: Tenderness - Rectal Exam Rectal Exam: Deferred - Exam Exam: NORMAL INSPECTION - Extremities Exam Extremities Exam: absent: Pedal Edema - Back Exam Back Exam: absent: CVA tenderness (L), CVA tenderness (R) Assessment and Plan (1) Bacteremia Status: Acute (2) Sepsis Status: Acute (3) Group B streptococcal infection Status: Acute (4) MARTHA (acute kidney injury) Status: Resolved (5) Abnormal LFTs Status: Acute (6) DM type 2 (diabetes mellitus, type 2) Status: Acute (7) Leukocytosis Status: Acute (8) Rhabdomyolysis Status: Resolved (9) Rotator cuff tear Status: Acute (10) Congestive heart failure Status: Acute (11) UTI (urinary tract infection), bacterial Status: Acute
--- NOTE | 2018-06-06 17:31 | CP.PCM.PN ---
Subjective - Date & Time of Evaluation Date of Evaluation: 06/06/18 Time of Evaluation: 07:10 - Subjective Subjective: Patient was seen and evaluated. Denies chest pain and dyspnea CCU Objective - Physical Exam Head: Positive for: Atraumatic, Normocephalic Pupils: Positive for: PERRL Extroacular Muscles: Positive for: EOMI Conjunctiva: Positive for: Normal Mouth: Positive for: Moist Mucous Membranes Neck: Positive for: Normal Range of Motion Respiratory/Chest: Positive for: Clear to Auscultation. Negative for: Respiratory Distress, Accessory Muscle Use Cardiovascular: Positive for: Normal S1, S2, Irregular Rhythm Abdomen: Positive for: Normal Bowel Sounds. Negative for: Tenderness, Distention, Rebound, Guarding Genitourinary Male: Positive for: Other ([place] condom catheter in place) Upper Extremity: Positive for: Normal Inspection, NORMAL PULSES, Tenderness (R shoulder), Neurovascularly Intact, Capillary Refill < 2s. Negative for: Swelling, Erythema Lower Extremity: Positive for: Normal Inspection, NORMAL PULSES, Neurovascularly Intact, Capillary Refill < 2 s. Negative for: Edema Neurological: Normal Skin: Positive for: Warm, Dry, Normal Color Psychiatric: Positive for: Alert Review of Systems - Constitutional Constitutional: absent: Fever, Chills, Sweats - EENT Eyes: UNREMARKABLE. absent: Change in Vision Ears: UNREMARKABLE. absent: Decreased Hearing Nose/Mouth/Throat: UNREMARKABLE. absent: Nasal Congestion - Cardiovascular Cardiovascular: UNREMARKABLE. absent: Chest Pain, Dyspnea, Palpitations - Respiratory Respiratory: UNREMARKABLE. absent: Cough, Dyspnea - Gastrointestinal Gastrointestinal: UNREMARKABLE. absent: Abdominal Pain, Constipation, Diarrhea, Nausea, Vomiting - Genitourinary Genitourinary: Urinary Incontinence, UNREMARKABLE. absent: Dysuria - Musculoskeletal Musculoskeletal: As Par HPI, Arthralgias (R shoulder). absent: Numbness, T ingling - Integumentary Integumentary: UNREMARKABLE. absent: Lesions - Neurological Neurological: Tremor (L hand). absent: Headaches, Paresthesias - Psychiatric Psychiatric: UNREMARKABLE - Endocrine Endocrine: UNREMARKABLE - Hematologic/Lymphatic Hematologic: UNREMARKABLE. absent: Easy Bleeding, Easy Bruising, Lymphadenopathy Assessment/Plan - Assessment and Plan (Free Text) Assessment: Patient is an 83 yo male with a history of Afib/flutter s/p cardioversions, T2DM, HTN, HLD, BPH, and renal insufficiency who presented to the ED with AMS (brought in by friend). Patient was seen in the ED the day prior for R shoulder pain and was started on Flexeril. He was also recently started on Percocet by his orthopedist, which patient has been taking around the clock. Patient was given Narcan in the ED. Mentation has improved, nearing baseline. Plan: Neuro: AMS- improving, suspect 2/2 polypharmacy - CT head x2: no acute findings - Discontinued Percocet and Flexeril - Tylenol 650 mg PO Q6H PRN pain - PT/OT/ST CV: Afib RVR- improved - Monitor on telemetry- sinus rhythm with occasional PACs - Echo pending - Eliquis 5 mg PO BID - Cardiology consulted (Jeffrey) HTN - Amlodipine 5 mg PO daily - Labetalol 10 mg IV Q6H PRN Hyperlipidemia - Discontinue Crestor 2/ rhabdo Pulm: - Maintain spO2>92%- nasal cannula PRN GI: Elevated lipase - Resolved (5218->297) - Abd u/s pending - Heart healthy diet Renal: Rhabdomyolysis - CK trending down (685, max 1297) MARTHA - Creatinine improved (3.4->1.4) - Nephrology consulted (Tomas) Endo: T2DM - Hypoglycemia protocol - Accuchecks ACHS with Regular ISS - Gabapentin 100 mg PO BID Heme: - Monitor H&H MSK: R shoulder pain s/p fall- patient is seeing ortho as outpatient for torn rotator cuff - R shoulder XR: no acute findings - PT/OT ID: - Afebrile - WBC trending down (19.1->16.2) - Zosyn 2.25 g IV Q6H Ppx: VTE: SCDs, Eliquis GI: Pepcid 20 mg PO daily Code status: full code Patient s/p CARRIE No Endocarditis Medical managemment Objective - Vital Signs/Intake and Output Vital Signs (last 24 hours): Temp Pulse Resp BP Pulse Ox 97.8 F 99 H 20 162/69 H 97 06/06/18 07:25 06/06/18 11:33 06/06/18 07:25 06/06/18 07:25 06/06/18 07:25 Intake and Output: 06/06/18 06/06/18 06:59 18:59 Intake Total 120 100 Output Total 200 Balance 120 -100 - Medications Medications: Current Medications Acetaminophen (Tylenol 325mg Tab) 650 mg PO Q6 PRN PRN Reason: Pain, Mild (1-3) Apixaban (Eliquis) 2.5 mg PO Q12 [facility] Last Admin: 06/06/18 11:04 Dose: 2.5 mg Dextrose (Dextrose 50% Inj) 0 ml IV STAT PRN; Protocol PRN Reason: Hypoglycemia Protocol Dextrose (Glutose 15) 0 gm PO ONCE PRN; Protocol PRN Reason: Hypoglycemia Protocol Diltiazem HCl (Cardizem) 30 mg PO TID [facility] Last Admin: 06/02/18 20:27 Dose: Not Given Docusate Sodium (Colace) 100 mg PO BID [facility] Last Admin: 06/06/18 11:04 Dose: 100 mg Famotidine (Pepcid) 20 mg PO DAILY [facility] Last Admin: 06/06/18 11:04 Dose: 20 mg Gabapentin (Neurontin) 100 mg PO BID [facility] Last Admin: 06/06/18 11:04 Dose: 100 mg Glucagon (Glucagen Diagnostic Kit) 0 mg IM STAT PRN; Protocol PRN Reason: Hypoglycemia Protocol Insulin Glargine (Lantus) 8 unit SC HS [facility] Last Admin: 06/05/18 21:20 Dose: 8 units Insulin Human Regular (Novolin R) 0 unit SC [facility]; Protocol Last Admin: 06/06/18 12:38 Dose: 6 units Metoprolol Tartrate (Lopressor) 50 mg PO BID [facility] Last Admin: 06/06/18 11:04 Dose: 50 mg Polyethylene Glycol (Miralax) 17 gm PO DAILY [facility] Last Admin: 06/06/18 11:03 Dose: 17 gm - Labs Labs: 06/05/18 06:01 06/05/18 06:03 PT 21.8 SECONDS (9.7-12.2) H 05/31/18 05:35 INR 2.0 05/31/18 05:35 APTT 34 SECONDS (21-34) 05/31/18 05:35
[2018-06-06] MEDS: (Lantus) Insulin Glargine, Recombinant SC SCH (22:05)
[2018-06-07] MEDS: (Novolin R) Insulin Human Regular 100 units/ml vial SC SCH ×2 (08:26→12:34)
--- NOTE | 2018-06-07 08:34 | PQF ---
PROVIDER RESPONSE TEXT: Acute Tubular Necrosis due to Rhabdomyolysis REVIEWER QUERY TEXT: Kidney Failure, Acute - Associated Conditions Acute Kidney Failure is documented in the Medical Record. Please specify the associated condition (i ncluding probable or suspected) Such as: None are likely contributors Other, please specify The patient's Clinical Indicators include: HPI: ?83 y/o M was brought in by a friend who states that pt has become increasingly confused" URINE EXAM: WBC: 239/60 - RBC: 05/30 - Bacteria: Occ/Occ - Hyaline Casts: 3-5 - Urine Yeast: Occ - Le ukocyte Esterase: 3+/3+ - LABS: WBC: 19.1/18.1 Query created by: Aren Ghosh on 06/01/2018 1:47 PM Electronically signed by: Rodney Yadav MD 06/07/2018 8:31 AM
--- NOTE | 2018-06-07 08:34 | PQF ---
PROVIDER RESPONSE TEXT: Severe sepsis with bacteremia, S. aureus and coag-neg Staph PNA FISH/Beta Hemolytic Strep Group B REVIEWER QUERY TEXT: Clarification of Clinical Diagnostic Findings Please clarify documentation or clinical relevance for the clinical / diagnostic findings or whether those are insignificant or unable to be further specified. Unable to specify Others The patient's Clinical Indicators include: ?83 y/o M was brought in by a friend who states that pt has become increasingly confused". V/S: Temp 98.1 F Pulse 144/124/125/ H Resp 24 BP 112/61 Pulse Ox 97 LABS: WBC: 19.1/18.1 BUN: 58 - Crea: 3.4 - Lactate: 2.1 - POC Glucose: 498/435/433 - Lipase: 5218/297 4/892 - Amylase: 444. URINE EXAM: WBC: 239/60 - RBC: 10/21 - Bacteria: Occ/Occ - Hyaline Casts: 3-5 - Urine Yeast: Occ - Le ukocyte Esterase: 3+/3+. Blood Culture: S. aureus and coag-neg Staph PNA FISH/Beta Hemolytic Strep Group B Query created by: Aren Ghosh on 06/01/2018 1:53 PM Electronically signed by: Rodney Yadav MD 06/07/2018 8:31 AM
[2018-06-07] MEDS: POLYETHYLENE GLYCOL 3350 17 GM/Dose PACKET PO SCH (10:59)
--- NOTE | 2018-06-07 12:33 | CP.PCM.PN ---
Subjective - Date & Time of Evaluation Date of Evaluation: 06/07/18 Time of Evaluation: 12:33 - Subjective Subjective: PT SEEN BY DR. WOODWARD THIS MORNING AND CLEARED FOR D/C HOME TODAY IF OK WITH DR. SAPP. PER DR. SAPP, OK TO SEND HOME TODAY WITH AUGMENTIN PO X10 DAYS. RX SENT TO PT'S PHARMACY. HOME VNA AND HOME PHY THER ARRANGED BY CM. ALL F/U DISCUSSED BY DR. WOODWARD TO FAMILY AT BEDSIDE. NO FURTHER ORDERS. SEE BELOW FOR SPECIFIC D/C INSTRUCTIONS PROVIDED TO PT. -FOLLOW UP WITH DR. WOODWARD IN THE OFFICE WITHIN 5-7 DAYS---CALL THE OFFICE TO MAKE YOUR APPOINTMENT. -FOLLOW UP WITH DR. CURIEL (KIDNEY DOCTOR) IN THE OFFICE WITHIN 1-2 WEEKS---CALL THE OFFICE TO MAKE YOUR APPOINTMENT. -PER DR. SAPP (INFECTION DOCTOR), YOU ARE TO TAKE AN ANTIBIOTIC: AUGMENTIN 875/125 MG---TAKE 1 TABLET BY MOUTH EVERY 12 HOURS (MORNING AND EVENING) FOR A TOTAL OF 10 DAYS (START TAKING TOMORROW, Thursday06/08/18). -YOU HAVE BEEN ARRANGED TO HAVE HOME CARE SERVICES AFTER DISCHARGE----PHYSICAL THERAPY HAS BEEN ARRANGED FOR YOU WELL. -PLEASE NOTE CHANGES MADE TO YOUR HOME MEDICATIONS; STOP TAKING: METOPROLOL (NEW PRESCRIPTION HAS BEEN SENT TO YOUR PHARMACY BECAUSE THE DOSE HAS CHANGED), AMLODIPINE, FLEXERIL, LOSARTAN (STOPPED BECAUSE OF YOUR KIDNEY FUNCTION), LYRICA, ELIQUIS (NEW PRESCRIPTION HAS BEEN SENT TO YOUR PHARMACY BECAUSE THE DOSE HAS CHANGED) -NEW PRESCRIPTIONS SENT TO YOUR PHARMACY INCLUDE: 1) THE ANTIBIOTIC AUGMENTIN 2) ELIQUIS 2.5 MG (BLOOD THINNER AND FOR YOUR HEART)---TAKE 1 TABLET BY MOUTH ONCE A DAY. 3) DILTIAZEM 30 MG (FOR YOUR HEART)---TAKE 1 TABLET BY MOUTH 3 TIMES A DAY (MORNING, AFTERNOON, AND EVENING). 4) COLACE (STOOL SOFTENER)---TAKE 1 CAPSULE BY MOUTH 2 TIMES A DAY (MORNING AND EVENING). 5) METOPROLOL 50 MG (FOR BLOOD PRESSURE)---TAKE 1 CAPSULE BY MOUTH 2 TIMES A DAY (MORNING AND EVENING). -FOR FURTHER QUESTIONS OR CONCERNS, CONTACT DR. WOODWARD'S OFFICE. Objective - Vital Signs/Intake and Output Vital Signs (last 24 hours): Temp Pulse Resp BP Pulse Ox 98.4 F 81 20 138/75 96 06/07/18 07:00 06/07/18 07:00 06/07/18 07:00 06/07/18 07:00 06/07/18 07:00 Intake and Output: 06/07/18 06/07/18 06:59 18:59 Intake Total 320 Output Total 350 Balance -30 - Medications Medications: Current Medications Acetaminophen (Tylenol 325mg Tab) 650 mg PO Q6 PRN PRN Reason: Pain, Mild (1-3) Apixaban (Eliquis) 2.5 mg PO Q12 [facility] Last Admin: 06/06/18 22:05 Dose: 2.5 mg Dextrose (Dextrose 50% Inj) 0 ml IV STAT PRN; Protocol PRN Reason: Hypoglycemia Protocol Dextrose (Glutose 15) 0 gm PO ONCE PRN; Protocol PRN Reason: Hypoglycemia Protocol Diltiazem HCl (Cardizem) 30 mg PO TID [facility] Last Admin: 06/02/18 20:27 Dose: Not Given Docusate Sodium (Colace) 100 mg PO BID [facility] Last Admin: 06/06/18 17:53 Dose: 100 mg Famotidine (Pepcid) 20 mg PO DAILY [facility] Last Admin: 06/06/18 11:04 Dose: 20 mg Gabapentin (Neurontin) 100 mg PO BID [facility] Last Admin: 06/06/18 17:53 Dose: 100 mg Glucagon (Glucagen Diagnostic Kit) 0 mg IM STAT PRN; Protocol PRN Reason: Hypoglycemia Protocol Insulin Glargine (Lantus) 8 unit SC HS [facility] Last Admin: 06/06/18 22:05 Dose: 8 units Insulin Human Regular (Novolin R) 0 unit SC ACHS [facility]; Protocol Last Admin: 06/07/18 08:26 Dose: 4 units Metoprolol Tartrate (Lopressor) 50 mg PO BID [facility] Last Admin: 06/06/18 17:53 Dose: 50 mg Polyethylene Glycol (Miralax) 17 gm PO DAILY [facility] Last Admin: 06/06/18 11:03 Dose: 17 gm - Labs Labs: 06/05/18 06:01 06/05/18 06:03 PT 21.8 SECONDS (9.7-12.2) H 05/31/18 05:35 INR 2.0 05/31/18 05:35 APTT 34 SECONDS (21-34) 05/31/18 05:35
[2018-06-07 15:45] VITALS: BP 154/97; PULSE 77; TEMP 98.3; O2SAT 98
== END 2018-06-07 15:40 | disposition home health service (06) | DRG 871 ==
LOC: C.ER 22:03 → C.9E 05-30 03:38 → C.9I 05-30 04:31 → C.6T 06-06 01:22
PROVIDERS: ADMIT Internal Medicine; ATTEND Internal Medicine
PROC: B246ZZ4 Ultrasonography of Right and Left Heart, Transesophageal (ICD-10-PCS; principal; 2018-06-03)
DX: A40.1 Sepsis due to streptococcus, group B (principal); N17.0 Acute kidney failure with tubular necrosis; G93.41 Metabolic encephalopathy; K85.90 Acute pancreatitis without necrosis or infection, unspecified; M62.82 Rhabdomyolysis; I13.0 Hypertensive heart and chronic kidney disease with heart failure and stage 1 through stage 4 chronic kidney disease, or unspecified chronic kidney disease; I48.92 Unspecified atrial flutter; N39.0 Urinary tract infection, site not specified; R65.20 Severe sepsis without septic shock; E11.22 Type 2 diabetes mellitus with diabetic chronic kidney disease; E11.65 Type 2 diabetes mellitus with hyperglycemia; I48.91 Unspecified atrial fibrillation; I50.9 Heart failure, unspecified; T40.601A Poisoning by unspecified narcotics, accidental (unintentional), initial encounter; N18.9 Chronic kidney disease, unspecified; M75.101 Unspecified rotator cuff tear or rupture of right shoulder, not specified as traumatic; N40.0 Benign prostatic hyperplasia without lower urinary tract symptoms; F12.90 Cannabis use, unspecified, uncomplicated; K59.00 Constipation, unspecified; E78.5 Hyperlipidemia, unspecified; E78.00 Pure hypercholesterolemia, unspecified; Z87.891 Personal history of nicotine dependence; Z23 Encounter for immunization; Z79.4 Long term (current) use of insulin; Z79.01 Long term (current) use of anticoagulants; Z79.899 Other long term (current) drug therapy